=== PATIENT | female | born 1990 | race Caucasian/White ===

== ENCOUNTER 2017-04-16 13:58 | Emergency (ER) | payer BC, MEDICAID ==
[2017-04-16] MEDS ORDERED: Sodium Chloride 0.9% 10 ML Syringe FLUSH PRN (15:06)
[2017-04-16] MEDS ORDERED: Sodium Chloride 0.9% 1,000 ML IV ONE ×2 (15:06→16:07)
[2017-04-16] MEDS ORDERED: Ondansetron 4 MG/2 ML SDV IVPUSH ONE (15:27)
[2017-04-16] MEDS ORDERED: Morphine 4 MG/ML Syringe IVPUSH ONE (15:27)
[2017-04-16 15:37] LABS: CHLORIDE,CL 101 mmol/L (98-107); SODIUM,NA 137 mmol/L (136-145)
[2017-04-16] MEDS ORDERED: cefTRIAXone 1 GM in Sodium Chloride 0.9% 100 ML IV ONE (15:47)
--- NOTE | 2017-04-16 16:27 | EDM.PDOC ---
ED HPI GENERAL MEDICAL PROBLEM - General Chief Complaint: General Stated Complaint: sinus pressure, headache Time Seen by Provider: 04/16/17 14:11 Source of Information: Reports: Patient History Limitations: Reports: No Limitations - History of Present Illness INITIAL COMMENTS - FREE TEXT/NARRATIVE: Patient complains of sore throat and congestion that started this past week. Was seen at clinic and it was thought to be a viral infection. No intervention at that time. Patient continues to have sore throat, but now her worst complaint is sinus congestion. Sinus pain is left sided. Has some clear to light green/yellow drainage. Low grade temp since Tuesday when symptoms started. Has had some nausea, light amount of emesis. Some loose stools but no major diarrhea. Has non-productive cough at times, not significant. 16 weeks . Has tried Tylenol, Benadryl, and hot packs without relief. BP elevated. Patient uncomfortable. Denies history of pre-eclampsia Treatments JUMBO OPERATOR: Reports: Acetaminophen, Other (see below) Other Treatments JUMBO OPERATOR: benadryl and heat therapy Sinus Pain Pain Score (Numeric/FACES): 10 - Related Data Allergies Allergy/AdvReac Type Severity Reaction Status Date / Time nickel Allergy Rash Verified 04/16/17 14:01 Penicillins Allergy Hives Verified 03/03/16 18:42 Home Meds: Home Meds Acetaminophen 1,000 mg PO Q4H PRN 01/18/16 [History] Aspirin [Kelly Chewable Aspirin] 81 mg PO BEDTIME 04/16/17 [History] Cephalexin [Keflex] 500 mg PO Q12H #8 cap 04/16/17 [Rx] Ferrous Sulfate, Dried [Slow Release Iron] 168 mg PO DAILY #30 tablet.er [Rx] Pnv with Ca,No.72/Iron/Fa [Pnv Plus Multivit Tab] 1 tab PO DAILY [History] diphenhydrAMINE [Benadryl] 25 mg PO Q6HR 04/16/17 [History] Past Medical History Other HEENT History: seasonal allergies. Hx. of recurrent tonsilitis as a child Respiratory History: Reports: Sleep Apnea Other Respiratory History: Has a CPAP machine for home use. 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 Misscarriages x 2. There first miscarriage due to tear in wall of placenta. Second miscarriage unknown cause found. 4 live births with one of those being adopted out. Dlivered 1 of the 4 live births by . Other Musculoskeletal History: bilateral ankle sprains Psychiatric History: Reports: Anxiety, Depression Endocrine/Metabolic History: Reports: Obesity/BMI 30+ Hematologic History: Reports: Anemia, Iron Deficiency Other Hematologic History: During pt. has hx of developing frequent clots which has lead to miscarriages - Infectious Disease History Infectious Disease History: Reports: Chicken Pox, Mononucleosis - Past Surgical History HEENT Surgical History: Reports: Oral Surgery Female Surgical History: Reports: Section, D&C Social & Family History - Tobacco Use Smoking Status *Q: Former Smoker Years of Tobacco use: 4 Packs/Tins Daily: 0.2 Used Tobacco, but Quit: Yes Month Tobacco Last Used: quit 2012 Second Hand Smoke Exposure: Yes - Caffeine Use Caffeine Use: Reports: Soda Caffeine Use Comment: Patient usually has 1 Mt. dew per week - Recreational Drug Use Recreational Drug Use: No ED ROS GENERAL - Review of Systems Review Of Systems: See Below Constitutional: Reports: Fever, Chills, Malaise, Weakness, Fatigue, Decreased Appetite. Denies: Night Sweats, Diaphoresis, Weight Loss, Weight Gain HEENT: Reports: Sinus Problem, Throat Pain. Denies: Ear Discharge, Ear Pain, Eye Discharge, Eye Pain, Throat Swelling, Vertigo, Vision Change Respiratory: Reports: Cough. Denies: Shortness of Breath, Wheezing, Pleuritic Chest Pain, Sputum, Hemoptysis Cardiovascular: Reports: No Symptoms GI/Abdominal: Reports: Diarrhea, Difficulty Swallowing, Nausea, Vomiting. Denies: Abdominal Pain, Constipation, Decreased Appetite, Hematemesis, Hematochezia : Reports: No Symptoms Musculoskeletal: Reports: Other (generalized muscle aches) Skin: Reports: No Symptoms Neurological: Reports: No Symptoms Psychiatric: Reports: No Symptoms Hematologic/Lymphatic: Reports: No Symptoms ED EXAM, GENERAL - Physical Exam Exam: See Below Exam Limited By: No Limitations General Appearance: Alert, Obese, Other (appears tired) Eye Exam: Bilateral Eye: EOMI, PERRL Ears: Normal External Exam, Normal Canal, Hearing Grossly Normal, Normal TMs Nose: Normal Inspection, Other (thinner mucus noted when patient blew nose, light greenish tint) Throat/Mouth: Normal Lips, Normal Voice, No Airway Compromise, Other (mild erythema oropharynx, no exudate) Head: Atraumatic, Normocephalic, Sinus Tenderness Neck: Supple, Full Range of Motion, Lymphadenopathy (L), Lymphadenopathy (R) Respiratory/Chest: No Respiratory Distress, Lungs Clear, Normal Breath Sounds, No Accessory Muscle Use Cardiovascular: No Murmur, Tachycardia Peripheral Pulses: 2+: Radial (L), Radial (R), Dorsalis Pedis (L), Dorsalis Pedis (R) GI/Abdominal: Normal Bowel Sounds, Soft, Non-Tender, No Distention (Female) Exam: Deferred Rectal (Female) Exam: Deferred Back Exam: Normal Inspection. No: CVA Tenderness (L), CVA Tenderness (R), Muscle Spasm, Paraspinal Tenderness, Vertebral Tenderness Extremities: Normal Range of Motion, Non-Tender, No Pedal Edema, Slow Capillary Refill (3-4 seconds) Neurological: Alert, Oriented, Normal Cognition, No Motor/Sensory Deficits Psychiatric: Normal Affect, Normal Mood Skin Exam: Warm, Dry, Intact, Normal Color Course - Vital Signs Last Recorded V/S: Last Vital Signs Temp 37.4 C 04/16/17 16:11 Pulse 109 H 04/16/17 16:11 Resp 20 04/16/17 16:11 BP 151/87 H 04/16/17 16:11 Pulse Ox 100 04/16/17 16:11 - Orders/Labs/Meds Orders: Active Orders 24 hr Category Date Time Status Sodium Chloride 0.9% [Saline Flush] Med 04/16/17 15:06 Active 10 ml FLUSH ASDIRECTED PRN Saline Lock Insert [OM.PC] Routine Oth 04/16/17 15:06 Ordered Medication Orders Sodium Chloride (Saline Flush) 10 ml FLUSH ASDIRECTED PRN PRN Reason: Keep Vein Open Last Admin: 04/16/17 16:03 Dose: 10 ml Labs: Laboratory Tests 04/16/17 04/16/17 04/16/17 Range/Units 15:06 15:15 15:15 WBC 9.6 (4.0-10.2) K/uL RBC 4.72 (3.77-5.09) M/uL Hgb 11.7 (11.7-15.5) g/dL Hct 35.8 (34.0-46.0) % MCV 75.8 L D (84.0-98.0) fL MCH 24.8 L (28.2-33.3) pg MCHC 32.7 (31.7-36.0) g/dL RDW 19.3 H (11.2-14.1) % Plt Count 225 (150-350) K/uL Neut % (Auto) 84.3 H (45.0-80.0) % Lymph % (Auto) 9.5 L (10.0-50.0) % [place] % (Auto) 5.9 (2.0-14.0) % Eos % (Auto) 0.2 (0.0-5.0) % Baso % (Auto) 0.1 (0.0-2.0) % Neut # (Auto) 8.09 H (1.40-7.00) K/uL Lymph # (Auto) 0.91 (0.50-3.50) K/uL [place] # (Auto) 0.57 (0.00-1.00) K/uL Eos # (Auto) 0.02 (0.00-0.50) K/uL Baso # (Auto) 0.01 (0.00-0.20) K/uL Sodium 137 (136-145) mmol/L Potassium 4.0 (3.5-5.1) mmol/L Chloride 101 (98-107) mmol/L Carbon Dioxide 22.4 (21.0-32.0) mmol/L BUN 12 (7-18) mg/dL Creatinine 0.56 (0.51-1.17) mg/dL Est Cr Clr Drug Dosing 170.15 mL/min Estimated GFR (MDRD) > 60 mL/min Glucose 87 (74-106) mg/dL Calcium 9.1 (8.5-10.1) mg/dL Iron 19 L (50-175) ug/dL TIBC 380 (250-450) ug/dL % Saturation [id number] Ferritin 58 (8-388) ng/mL Total Bilirubin 0.5 (0.2-1.0) mg/dL AST 15 (15-37) U/L ALT 33 (12-78) U/L Alkaline Phosphatase 79 (46-116) IU/L Total Protein 7.9 (6.4-8.2) g/dL Albumin 3.0 L (3.4-5.0) g/dL Specimen Type Urine Color Urine Appearance Urine pH (5.0-9.0) Ur Specific [place] (1.005-1.030) Urine Protein (NEGATIVE) mg/dL Urine Glucose (UA) (NEGATIVE) mg/dL Urine Ketones (NEGATIVE) mg/dL Urine Occult Blood (NEGATIVE) Urine Nitrite (NEGATIVE) Urine Bilirubin (NEGATIVE) Urine Urobilinogen (0.2-1.0) E.U./dL Ur Leukocyte Esterase (NEGATIVE) Urine RBC /HPF Urine WBC /HPF Ur Epithelial Cells /LPF Urine Bacteria (NONE TO FEW) /HPF 04/16/17 Range/Units 16:00 WBC (4.0-10.2) K/uL RBC (3.77-5.09) M/uL Hgb (11.7-15.5) g/dL Hct (34.0-46.0) % MCV (84.0-98.0) fL MCH (28.2-33.3) pg MCHC (31.7-36.0) g/dL RDW (11.2-14.1) % Plt Count (150-350) K/uL Neut % (Auto) (45.0-80.0) % Lymph % (Auto) (10.0-50.0) % [place] % (Auto) (2.0-14.0) % Eos % (Auto) (0.0-5.0) % Baso % (Auto) (0.0-2.0) % Neut # (Auto) (1.40-7.00) K/uL Lymph # (Auto) (0.50-3.50) K/uL [place] # (Auto) (0.00-1.00) K/uL Eos # (Auto) (0.00-0.50) K/uL Baso # (Auto) (0.00-0.20) K/uL Sodium (136-145) mmol/L Potassium (3.5-5.1) mmol/L Chloride (98-107) mmol/L Carbon Dioxide (21.0-32.0) mmol/L BUN (7-18) mg/dL Creatinine (0.51-1.17) mg/dL Est Cr Clr Drug Dosing mL/min Estimated GFR (MDRD) mL/min Glucose (74-106) mg/dL Calcium (8.5-10.1) mg/dL Iron (50-175) ug/dL TIBC (250-450) ug/dL % Saturation Ferritin (8-388) ng/mL Total Bilirubin (0.2-1.0) mg/dL AST (15-37) U/L ALT (12-78) U/L Alkaline Phosphatase (46-116) IU/L Total Protein (6.4-8.2) g/dL Albumin (3.4-5.0) g/dL Specimen Type Urinblad Urine Color Yellow Urine Appearance Clear Urine pH 6.0 (5.0-9.0) Ur Specific [place] 1.025 (1.005-1.030) Urine Protein 100 H (NEGATIVE) mg/dL Urine Glucose (UA) Negative (NEGATIVE) mg/dL Urine Ketones >=160 H (NEGATIVE) mg/dL Urine Occult Blood Trace-intact H (NEGATIVE) Urine Nitrite Negative (NEGATIVE) Urine Bilirubin Negative (NEGATIVE) Urine Urobilinogen 0.2 (0.2-1.0) E.U./dL Ur Leukocyte Esterase Negative (NEGATIVE) Urine RBC 0-5 /HPF Urine WBC 0-5 /HPF Ur Epithelial Cells Few /LPF Urine Bacteria Few (NONE TO FEW) /HPF Meds: Medications Generic Name Dose Route Start Last Admin Trade Name Freq PRN Reason Stop Dose Admin Sodium Chloride 10 ml 04/16/17 15:06 04/16/17 16:03 Saline Flush FLUSH 10 ml ASDIRECTED PRN Administration Keep Vein Open Discontinued Medications Generic Name Dose Route Start Last Admin Trade Name Freq PRN Reason Stop Dose Admin Hydrocodone Bitart/Acetaminophen 1 tab 04/16/17 17:11 04/16/17 17:14 Pana 325-5 Mg PO 04/16/17 17:12 1 tab ONETIME ONE Administration Sodium Chloride 1,000 mls @ 999 mls/hr 04/16/17 15:06 04/16/17 15:17 Normal Saline IV 04/16/17 16:06 999 mls/hr .BOLUS ONE Administration Sodium Chloride 1,000 mls @ 999 mls/hr 12/16/17 16:07 04/16/17 17:07 Normal Saline IV 04/16/17 17:07 999 mls/hr .BOLUS ONE Administration Ceftriaxone Sodium 1 gm/ 100 mls @ 200 mls/hr 04/16/17 15:47 04/16/17 16:06 Sodium Chloride IV 04/16/17 16:16 200 mls/hr ONETIME ONE Administration Morphine Sulfate 4 mg 04/16/17 15:27 04/16/17 16:04 Morphine IVPUSH 04/16/17 15:28 4 mg ONETIME ONE Administration Ondansetron HCl 4 mg 04/16/17 15:27 04/16/17 15:59 Zofran IVPUSH 04/16/17 15:28 4 mg ONETIME ONE Administration - Re-Assessments/Exams Free Text/Narrative Re-Assessment/Exam: 04/16/17 16:41 IV fluids given as well as pain medication to help with patient's 10/10 pain. Mild dehydration noted on exam. WBC normal. Microcytosis noted, serum ferritin added to labs. Chem panel WNL. UA still pending. Call placed to telepharmacy to discuss IV antibiotic consideration for patient as she is PCN allergic as well as . They recommended Rocephin if patient has not had problems with cephalosporin cross-reactivity in past. Patient was agreeable with the Rocephin. Planned discharge on Keflex. Free Text/Narrative Re-Assessment/Exam: 04/16/17 18:31 Much improved. Patient readied for discharge. BP and pulse also improved. Departure - Departure Time of Disposition: 18:25 Disposition: Home, Self-Care 01 Condition: Good Clinical Impression: Strep pharyngitis, Dehydration - Discharge Information Prescriptions: Cephalexin [Keflex] 500 mg PO Q12H #8 cap Ferrous Sulfate, Dried [Slow Release Iron] 168 mg PO DAILY #30 tablet.er Instructions: Ondansetron injection, Ceftriaxone injection, Strep Throat, Morphine injection solution, Dehydration, Adult Referrals: Lise Fajardo PA [Primary Care Provider] - Forms: ED Department Discharge, ED Return to Work/School Form Additional Instructions: Home, rest, take medicines as prescribed. Follow up Tuesday at clinic if you need further work restrictions. Stay hydrated. Follow up also concerning your severe iron deficiency. Follow up otherwise as needed. - My Orders Last 24 Hours: My Active Orders 04/16/17 15:06 Sodium Chloride 0.9% [Saline Flush] 10 ml FLUSH ASDIRECTED PRN Saline Lock Insert [OM.PC] Routine - Assessment/Plan Last 24 Hours: My Active Orders 04/16/17 15:06 Sodium Chloride 0.9% [Saline Flush] 10 ml FLUSH ASDIRECTED PRN Saline Lock Insert [OM.PC] Routine
[2017-04-16] MEDS ORDERED: Acetaminophen/HYDROcodone 325-5 MG Tab PO ONE (17:11)
[2017-04-16 18:33] VITALS: BP 144/83
== END 2017-04-16 18:50 | disposition home or self-care (01) ==
LOC: LL.ED 13:58
DX: O99.512 Diseases of the respiratory system complicating pregnancy, second trimester (principal); J02.0 Streptococcal pharyngitis; O99.282 Endocrine, nutritional and metabolic diseases complicating pregnancy, second trimester; E86.0 Dehydration; Z3A.16 16 weeks gestation of pregnancy; Z88.0 Allergy status to penicillin; Z88.8 Allergy status to other drugs, medicaments and biological substances; Z79.82 Long term (current) use of aspirin; Z87.891 Personal history of nicotine dependence
CPT/HCPCS: 36415; 80053; 81001; 82728; 83540; 83550; 85025; 87430; 87804; 96361; 96365; 96375; 99284; A9270; J0696; J2270; J2405; J7030; J7050

== ENCOUNTER 2018-08-11 06:49 | Emergency (ER) | payer BC ==
[2018-08-11] MEDS ORDERED: Sodium Chloride 0.9% 10 ML Syringe FLUSH PRN (07:08)
[2018-08-11] MEDS ORDERED: Lactated Ringers 1,000 ML IV SCH (07:15)
[2018-08-11] MEDS: Sodium Chloride 0.9% 1,000 ML IV SCH (07:26)
--- NOTE | 2018-08-11 07:50 | EDM.PDOC ---
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 No chest pain No travel hx Rare cough Onset: Today, Gradual Duration: Hour(s):, Getting Worse Location: Reports: Generalized Quality: Reports: Ache Severity: Moderate Improves with: Reports: Medication Associated Symptoms: Reports: Fever/Chills, Nausea/Vomiting Treatments SHOT POLISHER: Reports: Acetaminophen - Related Data Allergies Allergy/AdvReac Type Severity Reaction Status Date / Time nickel Allergy Rash Verified 08/11/18 07:05 Penicillins Allergy Hives Verified 08/11/18 07:05 Home Meds: Home Meds Acetaminophen 1,000 mg PO Q4H PRN 01/18/16 [History] Acetaminophen/Diphenhydramine [Tylenol Pm Ex-Strength Caplet] 2 each PO BEDTIME 08/11/18 [History] Cholecalciferol (Vitamin D3) [Vitamin D3] 2,000 units PO DAILY 08/11/18 [History ] Folic Acid 1 mg PO BEDTIME 08/11/18 [History] Methotrexate 8 tab PO TU 08/11/18 [History] Metoprolol Succinate [Toprol XL] 25 mg PO BEDTIME 08/11/18 [History] Sertraline [Zoloft] 100 mg PO BEDTIME 08/11/18 [History] hydroCHLOROthiazide [Hydrochlorothiazide] 25 mg PO BEDTIME 08/11/18 [History] Past Medical History Other HEENT History: seasonal allergies. Hx. of recurrent tonsilitis as a child Respiratory History: Reports: Sleep Apnea Other Respiratory History: Has a CPAP machine for home use. 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 Misscarriages x 2. There first miscarriage due to tear in wall of placenta. Second miscarriage unknown cause found. 4 live births with one of those being adopted out. Dlivered 1 of the 4 live births by . Musculoskeletal History: Reports: RA Other Musculoskeletal History: bilateral ankle sprains Psychiatric History: Reports: Anxiety, Depression Endocrine/Metabolic History: Reports: Obesity/BMI 30+ Hematologic History: Reports: Anemia, Iron Deficiency Other Hematologic History: During pt. has hx of developing frequent clots which has lead to miscarriages - Infectious Disease History Infectious Disease History: Reports: Chicken Pox, Mononucleosis - Past Surgical History HEENT Surgical History: Reports: Oral Surgery Female Surgical History: Reports: Section, D&C Social & Family History - Tobacco Use Smoking Status *Q: Former Smoker Used Tobacco, but Quit: Yes Month/Year Tobacco Last Used: quit in 2014 - Caffeine Use Caffeine Use: Reports: Coffee, Soda Caffeine Use Comment: Patient usually has 1 Mt. dew per week - Recreational Drug Use Recreational Drug Use: No ED ROS GENERAL - Review of Systems Review Of Systems: See Below Constitutional: Reports: Fever, Chills Respiratory: Reports: No Symptoms Cardiovascular: Reports: No Symptoms GI/Abdominal: Reports: Diarrhea, Nausea, Vomiting : Reports: No Symptoms ED EXAM, GENERAL - Physical Exam Exam: See Below General Appearance: Mild Distress Throat/Mouth: Normal Oropharynx Neck: Supple Respiratory/Chest: Lungs Clear Cardiovascular: Regular Rate, Rhythm GI/Abdominal: Soft, Non-Tender Course - Vital Signs Last Recorded V/S: Last Vital Signs Temp 37.3 C 08/11/18 06:51 Pulse 110 H 08/11/18 06:51 Resp 18 08/11/18 06:51 BP 129/91 H 08/11/18 06:51 Pulse Ox 98 08/11/18 06:51 - Orders/Labs/Meds Orders: Active Orders 24 hr Category Date Time Status CMP [COMPREHENSIVE METABOLIC PN,CMP] [CHEM] Stat Lab 08/11/18 07:20 Received Ondansetron [Zofran] Med 08/11/18 07:46 Once 8 mg IVPUSH ONETIME ONE Sodium Chloride 0.9% [Normal Saline] 1,000 ml Med 08/11/18 07:15 Active IV ASDIRECTED Sodium Chloride 0.9% [Saline Flush] Med 08/11/18 07:08 Active 10 ml FLUSH ASDIRECTED PRN Saline Lock Insert [OM.PC] Routine Oth 08/11/18 07:08 Ordered Medication Orders Sodium Chloride (Normal Saline) 1,000 mls @ 999 mls/hr IV ASDIRECTED HAO Last Admin: 08/11/18 07:26 Dose: 999 mls/hr Sodium Chloride (Saline Flush) 10 ml FLUSH ASDIRECTED PRN PRN Reason: Keep Vein Open Labs: Laboratory Tests 08/11/18 08/11/18 Range/Units 07:20 07:20 WBC 13.5 H (4.0-10.2) K/uL RBC 5.06 (3.77-5.09) M/uL Hgb 14.2 D (11.7-15.5) g/dL Hct 40.9 (34.0-46.0) % MCV 80.8 L D (84.0-98.0) fL MCH 28.1 L (28.2-33.3) pg MCHC 34.7 (31.7-36.0) g/dL RDW 14.6 H (11.2-14.1) % Plt Count 230 (150-350) K/uL Neut % (Auto) 83.3 H (45.0-80.0) % Lymph % (Auto) 10.0 (10.0-50.0) % [place] % (Auto) 6.3 (2.0-14.0) % Eos % (Auto) 0.3 (0.0-5.0) % Baso % (Auto) 0.1 (0.0-2.0) % Neut # (Auto) 11.27 H (1.40-7.00) K/uL Lymph # (Auto) 1.36 (0.50-3.50) K/uL [place] # (Auto) 0.85 (0.00-1.00) K/uL Eos # (Auto) 0.04 (0.00-0.50) K/uL Baso # (Auto) 0.02 (0.00-0.20) K/uL Lactic Acid 1.1 (0.4-2.0) mmol/L Meds: Medications Generic Name Dose Route Start Last Admin Trade Name Freq PRN Reason Stop Dose Admin Sodium Chloride 1,000 mls @ 999 mls/hr 08/11/18 07:15 08/11/18 07:26 Normal Saline IV 999 mls/hr ASDIRECTED HAO Administration Sodium Chloride 10 ml 08/11/18 07:08 Saline Flush FLUSH ASDIRECTED PRN Keep Vein Open - Re-Assessments/Exams Free Text/Narrative Re-Assessment/Exam: 08/11/18 07:48 Pt given IVF, IV Zofran in ER Had taken Tylenol at home and temp now 99 Departure - Departure Time of Disposition: 09:00 Disposition: Home, Self-Care 01 Clinical Impression: Gastroenteritis - Discharge Information *PRESCRIPTION DRUG MONITORING PROGRAM REVIEWED*: Not Applicable *COPY OF PRESCRIPTION DRUG MONITORING REPORT IN PATIENT HERI: Not Applicable Instructions: Viral Gastroenteritis, Adult Referrals: Zahra Kern PA-C [Primary Care Provider] - - My Orders Last 24 Hours: My Active Orders 08/11/18 07:08 Sodium Chloride 0.9% [Saline Flush] 10 ml FLUSH ASDIRECTED PRN Saline Lock Insert [OM.PC] Routine 08/11/18 07:15 Sodium Chloride 0.9% [Normal Saline] 1,000 ml IV ASDIRECTED 08/11/18 07:20 CMP [COMPREHENSIVE METABOLIC PN,CMP] [CHEM] Stat 08/11/18 07:46 Ondansetron [Zofran] 8 mg IVPUSH ONETIME ONE - Assessment/Plan Last 24 Hours: My Active Orders 08/11/18 07:08 Sodium Chloride 0.9% [Saline Flush] 10 ml FLUSH ASDIRECTED PRN Saline Lock Insert [OM.PC] Routine 08/11/18 07:15 Sodium Chloride 0.9% [Normal Saline] 1,000 ml IV ASDIRECTED 08/11/18 07:20 CMP [COMPREHENSIVE METABOLIC PN,CMP] [CHEM] Stat 08/11/18 07:46 Ondansetron [Zofran] 8 mg IVPUSH ONETIME ONE
[2018-08-11 07:52] LABS: CHLORIDE,CL 104 mmol/L (98-107); SODIUM,NA 139 mmol/L (136-145)
[2018-08-11 08:17] VITALS: BP 102/81
[2018-08-11] MEDS: Ondansetron 4 MG/2 ML SDV IVPUSH ONE (08:21)
== END 2018-08-11 08:30 | disposition home or self-care (01) ==
LOC: LL.ED 06:49
DX: K52.9 Noninfective gastroenteritis and colitis, unspecified (principal); Z88.8 Allergy status to other drugs, medicaments and biological substances; Z88.0 Allergy status to penicillin; Z79.899 Other long term (current) drug therapy; Z87.891 Personal history of nicotine dependence
CPT/HCPCS: 36000; 36415; 80053; 83605; 85025; 87804; 96361; 96374; 99284; J2405; J7030

== ENCOUNTER 2018-08-13 14:45 | Emergency (ER) | payer BC ==
[2018-08-13] MEDS ORDERED: Sodium Chloride 0.9% 10 ML Syringe FLUSH PRN (14:58)
[2018-08-13 15:24] VITALS: BP 113/77
[2018-08-13] MEDS ORDERED: Azithromycin 250 MG Tab PO ONE (15:26)
[2018-08-13] MEDS ORDERED: Ketorolac 30 MG/ML SDV IVPUSH ONE (15:27)
[2018-08-13] MEDS ORDERED: Ondansetron 4 MG/2 ML SDV IVPUSH ONE (15:27)
[2018-08-13] MEDS ORDERED: Sodium Chloride 0.9% 1,000 ML IV ONE (15:27)
[2018-08-13 15:37] LABS: CHLORIDE,CL 101 mmol/L (98-107); SODIUM,NA 140 mmol/L (136-145)
--- NOTE | 2018-08-13 16:02 | EDM.PDOC ---
ED HPI GENERAL MEDICAL PROBLEM - General Chief Complaint: ENT Problem Stated Complaint: sore throat Time Seen by Provider: 08/13/18 14:58 Source of Information: Reports: Patient History Limitations: Reports: No Limitations - History of Present Illness INITIAL COMMENTS - FREE TEXT/NARRATIVE: Three day history of not feeling well. Symptoms initially included nausea/ emesis/loose stools. Was seen in the ER for this Tuesday, two days ago. Received IV fluids. Returns today because she has a sore throat and spit out "tonsil stones". Vomiting and loose stools have resolved. Low grade fever yesterday, but afebrile today. Continues to have generalized body aches. Has intermittent ear pain bilaterally. No headache complaint. No other changes reported. Would like work note. Throat Pain Score (Numeric/FACES): 8 - Related Data Allergies Allergy/AdvReac Type Severity Reaction Status Date / Time nickel Allergy Rash Verified 08/13/18 15:23 Penicillins Allergy Hives Verified 08/13/18 15:23 Home Meds: Home Meds Acetaminophen 1,000 mg PO Q4H PRN 01/18/16 [History] Acetaminophen/Diphenhydramine [Tylenol Pm Ex-Strength Caplet] 2 each PO BEDTIME 08/11/18 [History] Cholecalciferol (Vitamin D3) [Vitamin D3] 2,000 units PO DAILY 08/11/18 [History ] Folic Acid 1 mg PO BEDTIME 08/11/18 [History] Methotrexate 8 tab PO TU 08/11/18 [History] Metoprolol Succinate [Toprol XL] 25 mg PO BEDTIME 08/11/18 [History] Sertraline [Zoloft] 100 mg PO BEDTIME 08/11/18 [History] hydroCHLOROthiazide [Hydrochlorothiazide] 25 mg PO BEDTIME 08/11/18 [History] Azithromycin [Zithromax] 250 mg PO DAILY #4 tab 08/13/18 [Rx] guaiFENesin [Robitussin] 10 ml PO Q4H PRN 08/13/18 [History] Past Medical History Other HEENT History: seasonal allergies. Hx. of recurrent tonsilitis as a child Cardiovascular History: Reports: Hypertension Respiratory History: Reports: Sleep Apnea Other Respiratory History: Has a CPAP machine for home use. Patient uses machine daily except for when sick SPECIALTY DEVELOPMENT CONSULTANT History: Reports: , Spontaneous Other SPECIALTY DEVELOPMENT CONSULTANT History: Total number of pregnacy is 7 with Miscarriages x 2. There first miscarriage due to tear in wall of placenta. Second miscarriage unknown cause found. 4 live births with one of those being adopted out. C- section. Musculoskeletal History: Reports: RA Other Musculoskeletal History: bilateral ankle sprains Psychiatric History: Reports: Anxiety, Depression Endocrine/Metabolic History: Reports: Obesity/BMI 30+ Hematologic History: Reports: Anemia, Iron Deficiency Other Hematologic History: During pt. has hx of developing frequent clots which has lead to miscarriages Immunologic History: Reports: Other (See Below) (rheumatoid arthritis) - Infectious Disease History Infectious Disease History: Reports: Chicken Pox, Mononucleosis - Past Surgical History HEENT Surgical History: Reports: Oral Surgery Female Surgical History: Reports: Section, D&C Social & Family History - Caffeine Use Caffeine Use: Reports: Coffee, Soda Caffeine Use Comment: Patient usually has 1 Mt. dew per week ED ROS GENERAL - Review of Systems Review Of Systems: See Below Constitutional: Denies: Fever, Chills, Malaise, Weakness, Night Sweats, Diaphoresis HEENT: Reports: Ear Pain, Throat Pain. Denies: Dental Pain, Ear Discharge, Eye Discharge, Eye Pain, Rhinitis, Sinus Problem, Throat Swelling, Vertigo, Vision Change Respiratory: Reports: No Symptoms. Denies: Cough Cardiovascular: Reports: No Symptoms. Denies: Chest Pain GI/Abdominal: Reports: No Symptoms. Denies: Abdominal Pain, Constipation, Diarrhea, Melena, Nausea, Vomiting : Reports: No Symptoms Musculoskeletal: Reports: Other (generalized body aches) Skin: Reports: No Symptoms Neurological: Reports: No Symptoms Psychiatric: Reports: No Symptoms ED EXAM, GENERAL - Physical Exam Exam: See Below Exam Limited By: No Limitations General Appearance: Alert, No Apparent Distress, Obese Eye Exam: Bilateral Eye: EOMI, PERRL Ear Exam: Right Ear: TM normal, Left Ear: Auricle Normal, Canal Normal, Other ( yellowish fluid noted behind TM) Nose: No: Nasal Deformity, Nasal Swelling, Nasal Drainage Throat/Mouth: Normal Lips, No Airway Compromise, Other (Due to patient's anatomy , very difficult to fully assess OP even with tongue depressor. No obvious redness noted. ) Head: Atraumatic, Normocephalic Neck: Supple, Full Range of Motion, Lymphadenopathy (L), Lymphadenopathy (R) Respiratory/Chest: No Respiratory Distress, Lungs Clear, Normal Breath Sounds, No Accessory Muscle Use Cardiovascular: No Murmur, Tachycardia Peripheral Pulses: 2+: Brachial (L), Brachial (R) GI/Abdominal: Soft, Non-Tender (Female) Exam: Deferred Rectal (Female) Exam: Deferred Neurological: Alert, Oriented, CN II-XII Intact, Normal Cognition, Normal Gait, No Motor/Sensory Deficits Psychiatric: Normal Affect, Normal Mood Skin Exam: Warm, Dry, Intact, Normal Color Course - Vital Signs Last Recorded V/S: Last Vital Signs Temp 36.5 C 08/13/18 14:45 Pulse 106 H 08/13/18 15:00 Resp 20 08/13/18 15:00 BP 113/77 08/13/18 15:00 Pulse Ox 97 08/13/18 15:00 - Orders/Labs/Meds Orders: Active Orders 24 hr Category Date Time Status CULTURE STREP A CONFIRMATION [RM] Stat Lab 08/13/18 15:10 Results CULTURE URINE [] Routine Lab 08/13/18 15:52 Ordered HEPATITIS PANEL (4) [REF] Routine Lab 08/13/18 15:54 Ordered STREP SCRN A RAPID W CULT CONF [RM] Stat Lab 08/13/18 14:58 Ordered Sodium Chloride 0.9% [Saline Flush] Med 08/13/18 14:58 Active 10 ml FLUSH ASDIRECTED PRN Saline Lock Insert [OM.PC] Routine Oth 08/13/18 14:58 Ordered Medication Orders Sodium Chloride (Saline Flush) 10 ml FLUSH ASDIRECTED PRN PRN Reason: Keep Vein Open Last Admin: 08/13/18 15:49 Dose: 10 ml Labs: Laboratory Tests 08/13/18 08/13/18 08/13/18 Range/Units 14:58 15:15 15:15 WBC 12.7 H (4.0-10.2) K/uL RBC 5.10 H (3.77-5.09) M/uL Hgb 14.2 (11.7-15.5) g/dL Hct 41.9 (34.0-46.0) % MCV 82.2 L (84.0-98.0) fL MCH 27.8 L (28.2-33.3) pg MCHC 33.9 (31.7-36.0) g/dL RDW 14.7 H (11.2-14.1) % Plt Count 275 (150-350) K/uL Neut % (Auto) 75.1 (45.0-80.0) % Lymph % (Auto) 15.5 (10.0-50.0) % Hartley % (Auto) 8.7 (2.0-14.0) % Eos % (Auto) 0.5 (0.0-5.0) % Baso % (Auto) 0.2 (0.0-2.0) % Neut # (Auto) 9.52 H (1.40-7.00) K/uL Lymph # (Auto) 1.96 (0.50-3.50) K/uL Hartley # (Auto) 1.10 H (0.00-1.00) K/uL Eos # (Auto) 0.06 (0.00-0.50) K/uL Baso # (Auto) 0.02 (0.00-0.20) K/uL Sodium 140 (136-145) mmol/L Potassium 3.9 (3.5-5.1) mmol/L Chloride 101 (98-107) mmol/L Carbon Dioxide 27.6 (21.0-32.0) mmol/L BUN 15 (7-18) mg/dL Creatinine 0.68 (0.51-1.17) mg/dL Est Cr Clr Drug Dosing 137.67 mL/min Estimated GFR (MDRD) > 60 mL/min Glucose 85 (74-106) mg/dL Lactic Acid (0.4-2.0) mmol/L Calcium 9.6 (8.5-10.1) mg/dL Total Bilirubin 1.4 H (0.2-1.0) mg/dL AST 49 H (15-37) U/L ALT 90 H (12-78) U/L Alkaline Phosphatase 120 H (46-116) IU/L Total Protein 8.4 H (6.4-8.2) g/dL Albumin 3.8 (3.4-5.0) g/dL Specimen Type Urinblad Urine Color Yellow Urine Appearance Clear Urine pH 6.5 (5.0-9.0) Ur Specific Douglas 1.020 (1.005-1.030) Urine Protein 100 H (NEGATIVE) mg/dL Urine Glucose (UA) Negative (NEGATIVE) mg/dL Urine Ketones 15 H (NEGATIVE) mg/dL Urine Occult Blood Trace-lysed H (NEGATIVE) Urine Nitrite Negative (NEGATIVE) Urine Bilirubin Small H (NEGATIVE) Urine Urobilinogen 1.0 (0.2-1.0) E.U./dL Ur Leukocyte Esterase Small H (NEGATIVE) Urine RBC 5-10 H /HPF Urine WBC 10-20 H /HPF Ur Epithelial Cells Many H /LPF Urine Bacteria Many H (NONE TO FEW) /HPF Urine Yeast Moderate H (NEGATIVE) /HPF Urinalysis Comment Monoscreen (NEGATIVE) 08/13/18 08/13/18 Range/Units 15:15 15:15 WBC (4.0-10.2) K/uL RBC (3.77-5.09) M/uL Hgb (11.7-15.5) g/dL Hct (34.0-46.0) % MCV (84.0-98.0) fL MCH (28.2-33.3) pg MCHC (31.7-36.0) g/dL RDW (11.2-14.1) % Plt Count (150-350) K/uL Neut % (Auto) (45.0-80.0) % Lymph % (Auto) (10.0-50.0) % Hartley % (Auto) (2.0-14.0) % Eos % (Auto) (0.0-5.0) % Baso % (Auto) (0.0-2.0) % Neut # (Auto) (1.40-7.00) K/uL Lymph # (Auto) (0.50-3.50) K/uL Hartley # (Auto) (0.00-1.00) K/uL Eos # (Auto) (0.00-0.50) K/uL Baso # (Auto) (0.00-0.20) K/uL Sodium (136-145) mmol/L Potassium (3.5-5.1) mmol/L Chloride (98-107) mmol/L Carbon Dioxide (21.0-32.0) mmol/L BUN (7-18) mg/dL Creatinine (0.51-1.17) mg/dL Est Cr Clr Drug Dosing mL/min Estimated GFR (MDRD) mL/min Glucose (74-106) mg/dL Lactic Acid 0.5 (0.4-2.0) mmol/L Calcium (8.5-10.1) mg/dL Total Bilirubin (0.2-1.0) mg/dL AST (15-37) U/L ALT (12-78) U/L Alkaline Phosphatase (46-116) IU/L Total Protein (6.4-8.2) g/dL Albumin (3.4-5.0) g/dL Specimen Type Urine Color Urine Appearance Urine pH (5.0-9.0) Ur Specific Douglas (1.005-1.030) Urine Protein (NEGATIVE) mg/dL Urine Glucose (UA) (NEGATIVE) mg/dL Urine Ketones (NEGATIVE) mg/dL Urine Occult Blood (NEGATIVE) Urine Nitrite (NEGATIVE) Urine Bilirubin (NEGATIVE) Urine Urobilinogen (0.2-1.0) E.U./dL Ur Leukocyte Esterase (NEGATIVE) Urine RBC /HPF Urine WBC /HPF Ur Epithelial Cells /LPF Urine Bacteria (NONE TO FEW) /HPF Urine Yeast (NEGATIVE) /HPF Urinalysis Comment Monoscreen Negative (NEGATIVE) Meds: Medications Generic Name Dose Route Start Last Admin Trade Name Freq PRN Reason Stop Dose Admin Sodium Chloride 10 ml 08/13/18 14:58 08/13/18 15:49 Saline Flush FLUSH 10 ml ASDIRECTED PRN Administration Keep Vein Open Discontinued Medications Generic Name Dose Route Start Last Admin Trade Name Freq PRN Reason Stop Dose Admin Azithromycin 500 mg 08/13/18 15:26 08/13/18 15:49 Zithromax PO 08/13/18 15:27 500 mg ONETIME ONE Administration Sodium Chloride 1,000 mls @ 999 mls/hr 08/13/18 15:27 08/13/18 15:47 Normal Saline IV 08/13/18 16:27 999 mls/hr .BOLUS ONE Administration Ketorolac Tromethamine 30 mg 08/13/18 15:27 08/13/18 15:49 Toradol IVPUSH 08/13/18 15:28 30 mg ONETIME ONE Administration Ondansetron HCl 4 mg 08/13/18 15:27 08/13/18 15:49 Zofran IVPUSH 08/13/18 15:28 4 mg ONETIME ONE Administration - Re-Assessments/Exams Free Text/Narrative Re-Assessment/Exam: 08/13/18 17:00 Rapid strep and mono negative. WBC still elevated but improving. LFTs now elevated (normal two days ago). Patient denies taking excessive amount of Tylenol. No history of previous LFT abnormalities reported. Hepatitis panel requested. UA sample requested and showed a large quantity of epithelial cells with a few WBC/RBC noted. Reflects dirty UA specimen. Lab unable to perform UC due to contamination. Patient unable to give us new UA specimen. Denies UTI symptoms. Received Zithromax for left middle ear infection. Suspect based on patient's history that she has viral infection. Given the yellowish coloration of TM fluid will cover with Zithromax. No additional antibiotics indicated at this time. Patient received single liter of IV NS. Cap refill had been mildly sluggish on exam, mild dehydration suspected. Toradol and Zofran given. Work slip given for 48 hours off. Patient cautioned to avoid ETOH/Tylenol given the elevated LFTs. Precautions reviewed. To follow up in one week with her primary provider to have LFTs rechecked. Hep panel can be reviewed and new UA performed at that time. Strep culture pending. Departure - Departure Time of Disposition: 17:07 Disposition: Home, Self-Care 01 Condition: Good Clinical Impression: Viral syndrome, LFT elevation Otitis media Qualifiers: Otitis media type: suppurative Chronicity: acute Laterality: left Recurrence: not specified as recurrent Spontaneous tympanic membrane rupture: without spontaneous rupture Qualified Code(s): H66.002 - Acute suppurative otitis media without spontaneous rupture of ear drum, left ear - Discharge Information *PRESCRIPTION DRUG MONITORING PROGRAM REVIEWED*: Not Applicable *COPY OF PRESCRIPTION DRUG MONITORING REPORT IN PATIENT HERI: Not Applicable Prescriptions: Azithromycin [Zithromax] 250 mg PO DAILY #4 tab Instructions: Otitis Media, Adult, [id number] Referrals: Zahra Kern PA-C [Primary Care Provider] - Forms: ED Department Discharge, ED Return to Work/School Form Additional Instructions: No work for 48 hours. 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 Make appointment with your primary provider to get your liver functions rechecked in one week. You may review your hepatitis panel results at that time also. Recheck urine at that time. Stay hydrated. Avoid Tylenol for now due to your elevated liver functions. OK to take Ibuprofen. No alcohol either. Follow up as needed if you have worsening problems. - My Orders Last 24 Hours: My Active Orders 08/13/18 14:58 STREP SCRN A RAPID W CULT CONF [RM] Stat Sodium Chloride 0.9% [Saline Flush] 10 ml FLUSH ASDIRECTED PRN Saline Lock Insert [OM.PC] Routine 08/13/18 15:10 CULTURE STREP A CONFIRMATION [RM] Stat 08/13/18 15:52 CULTURE URINE [RM] Routine 08/13/18 15:54 HEPATITIS PANEL (4) [REF] Routine - Assessment/Plan Last 24 Hours: My Active Orders 08/13/18 14:58 STREP SCRN A RAPID W CULT CONF [RM] Stat Sodium Chloride 0.9% [Saline Flush] 10 ml FLUSH ASDIRECTED PRN Saline Lock Insert [OM.PC] Routine 08/13/18 15:10 CULTURE STREP A CONFIRMATION [RM] Stat 08/13/18 15:52 CULTURE URINE [RM] Routine 08/13/18 15:54 HEPATITIS PANEL (4) [REF] Routine
== END 2018-08-13 17:15 | disposition home or self-care (01) ==
LOC: LL.ED 14:45
DX: H66.002 Acute suppurative otitis media without spontaneous rupture of ear drum, left ear (principal); B34.9 Viral infection, unspecified; R79.89 Other specified abnormal findings of blood chemistry; I10 Essential (primary) hypertension; F41.9 Anxiety disorder, unspecified; F32.9 Major depressive disorder, single episode, unspecified; Z88.0 Allergy status to penicillin; Z88.8 Allergy status to other drugs, medicaments and biological substances; Z79.899 Other long term (current) drug therapy
CPT/HCPCS: 36415; 80053; 80074; 81001; 83605; 85025; 86308; 87081; 87430; 96361; 96374; 96375; 99283-25; A9270-GY; J1885; J2405; J7030

== ENCOUNTER 2018-08-29 16:22 | Emergency (ER) | payer BC ==
--- NOTE | 2018-08-29 16:37 | EDM.PDOC ---
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 This is not a Workmen's Compensation injury. Note that the patient does have a previous history of recurrent ankle sprains with only minor fall today with a right knee abrasion but no head injury , loss of consciousness, paresthesias, neck/back pain, neurological deficits, or other complaints or injuries. She did take 400 mg of prior to arrival. No recent history of abdominal pain, heartburn, nausea, diarrhea, melena, gross hematochezia, or any food intolerance, including fatty foods, etc.. The patient also denies any recent fever, cough, wheezing, dyspnea, etc.. Onset: Today, Sudden Onset Date: 08/29/18 Onset Time: 15:30 Duration: Constant Location: Reports: Lower Extremity, Left, Lower Extremity, Right. 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 Left Ankle Pain Score (Numeric/FACES): 7 - Related Data Allergies Allergy/AdvReac Type Severity Reaction Status Date / Time nickel Allergy Rash Verified 08/29/18 16:30 Penicillins Allergy Hives Verified 08/29/18 16:30 Home Meds: Home Meds Cholecalciferol (Vitamin D3) [Vitamin D3] 2,000 units PO DAILY 08/11/18 [History ] Folic Acid 1 mg PO BEDTIME 08/11/18 [History] Methotrexate 6 tab PO TU 08/11/18 [History] Metoprolol Succinate [Toprol XL] 25 mg PO BEDTIME 08/11/18 [History] Sertraline [Zoloft] 100 mg PO BEDTIME 08/11/18 [History] hydroCHLOROthiazide [Hydrochlorothiazide] 25 mg PO DAILY #0 08/29/18 [Rx] Past Medical History HEENT History: Reports: Allergic Rhinitis, Impaired Vision. Denies: Glaucoma, Hard of Hearing, Macular Degeneration, Otitis Media, Retinal Detachment Other HEENT History: Sseasonal allergies. Hx. of recurrent tonsilitis as a child. She wears glasses and soft contact lenses. Cardiovascular History: Reports: Hypertension. Denies: Afib, Aneurysm, Arrhythmia, Blood Clots/VTE/DVT, CAD, Heart Failure, Heart Murmur, High Cholesterol, MD, PVD, Syncope Respiratory History: Reports: Intubation, Previous, Sleep Apnea. Denies: Asthma , Bronchitis, Recurrent, COPD, Intubation, Difficult, PE, Pneumonia, Recurrent, Pneumothorax, TB Other Respiratory History: She was compliant with her CPAP machine. Gastrointestinal History: Reports: Other (See Below). Denies: Celiac Disease, Cholelithiasis, Chronic Constipation, Chronic Diarrhea, Fecal Incontinence, Gastritis, GERD, GI Bleed, Hepatitis, Hiatal Hernia, Inflammatory Bowel Disease , Irritable Bowel Syndrome, Jaundice, Pancreatitis, PUD Other Gastrointestinal History: LFT elevation secondary to either fatty liver and/or methotrexate therapy. Genitourinary History: Reports: None. 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 Denies: Dysfunctional Uterine Bleeding, Endometriosis, Fibroids : 7 Para: 5 LMP (Approximate): Other (See Below) Other ENGINE ROOM OPERATOR History: Total number of pregnacy is 7 with Miscarriages x 2. Her first miscarriage due to tear in wall of placenta/placental abruption with SAB at 17 weeks with D&C thereafter after delivery. Second miscarriage unknown cause found 20 weeks with delivery and subsequent D&C. 4 live births with one of those being adopted out. 1 secondary to breech presentation was at full-term with subsequent follow-up scheduled secondary to previous as above. LMP on 08/01/18. Musculoskeletal History: Reports: Arthritis, Fracture, Osteoarthritis, RA. Denies: Amputation, Back Pain, Chronic, Gout, Neck Pain, Chronic, SLE Other Musculoskeletal History: Recurrent bilateral ankle sprains. Right ankle medial malleolar chip fracture on 12/27/10. Rheumatoid arthritis currently under methotrexate. Neurological History: Denies: Cerebral Aneurysms, Concussion, CVA, Headaches, Chronic, Head Trauma, Migraines, MS, Neuropathy, Peripheral, Parkinson's, Seizure, TIA Psychiatric History: Reports: Anxiety, Depression. Denies: Abuse, Victim of, ADD, ADHD, Addiction, Psych Hospitalization(s), PTSD, Suicide Attempt, Suicidal Ideation Endocrine/Metabolic History: Reports: Obesity/BMI 30+. Denies: Diabetes, Gestational, Diabetes, Type I, Diabetes, Type II, Hypothyroidism, IDDM Hematologic History: Reports: Anemia, Iron Deficiency. Denies: Blood Transfusion(s) Immunologic History: Reports: Immunosuppression, Other (See Below). Denies: AIDS, HIV, SLE Other Immunologic History: Note current methotrexate therapy. Oncologic (Cancer) History: Reports: None. Denies: Basal Cell Carcinoma, Breast , Cervix, Hodgkin's Lymphoma, Leukemia, Lymphoma, Malignant Melanoma, Non- Hodgkin's Lymphoma, Ovarian, Squamous Cell Carcinoma, Uterine Dermatologic History: Reports: None. Denies: Eczema, Psoriasis - Infectious Disease History Infectious Disease History: Reports: Chicken Pox, Mononucleosis (On 12/27/11). Denies: C-Difficile, Measles, Meningitis, MRSA, Mumps, Pertussis (Whooping Cough ), Rheumatic Fever, Rubella, Scarlet Fever, Shingles, TB, VRE - Past Surgical History Head Surgeries/Procedures: Reports: None HEENT Surgical History: Reports: Oral Surgery, Other (See Below). Denies: Adenoidectomy, Cataract Surgery, Eye Surgery, Laser Surgery, LASIK, Myringotomy w Tube(s), Naso-Sinus Surgery, Tonsillectomy Other HEENT Surgeries/Procedures: Lorman teeth extraction 4 at age 17. Subsequent teeth extractions4 with subsequent reconstructive maxillary and mandibular jaw surgery. Cardiovascular Surgical History: Reports: None. Denies: Varicose Respiratory Surgical History: Reports: None. Denies: Thoracentesis GI Surgical History: Reports: Hernia, Abdominal, Other (See Below). Denies: Appendectomy, Cholecystectomy Other GI Surgeries/Procedures: Abdominal ventral hernia repair on 03/27/18. Female Surgical History: Reports: Section, D&C, Dilitation & Evacuation, Other (See Below). Denies: Breast Biopsy, Breast Implant, Cystectomy, Hysterectomy, Salpingo-Oophorectomy Other Female Surgeries/Procedures: C-sections and D&Cs as above. Bilateral salpingectomies rather than tubal ligations at age 27 Endocrine Surgical History: Reports: None. Denies: Thyroid Biopsy Neurological Surgical History: Reports: None. Denies: C-Spine, Discectomy, Laminectomy, Lumbar Spine, Sacral Spine, Spinal Fusion, Thoracic Spine, Vertebroplasty Musculoskeletal Surgical History: Reports: None. Denies: Arthroscopic Procedure , Carpal Tunnel, Ganglion Cyst, Joint Replacement, ORIF, Shoulder Surgery Oncologic Surgical History: Reports: None Dermatological Surgical History: Reports: None - Past Imaging History Past Imaging History: Reports: CAT Scan (CT of the wrist on 01/10/18.), Sleep Study (At age 23.), Ultrasound (OB ultrasounds. Complete abdominal ultrasound on 02/29/12. Right upper quadrant ultrasound on 01/28/11.). Denies: Mammogram Social & Family History - Tobacco Use Smoking Status *Q: Former Smoker Tobacco Use Within Last Twelve Months: No Years of Tobacco use: 7 Packs/Tins Daily: 0.1 Packs/Tins Daily Comment: 1 pack per week between ages 18 and 25. Used Tobacco, but Quit: Yes Smoking Cessation Information Provided To Patient: No Source of Second Hand Smoke Exposure: uses E cigarettes. Second Hand Smoke Education Provided: Yes - Caffeine Use Caffeine Use: Reports: Coffee, Soda, Tea. Denies: Energy Drinks Caffeine Use Comment: One cup per day of coffee. Patient usually has 1 Mt. dew per week. - Alcohol Use Alcohol Use History: Yes Days Per Week of Alcohol Use: 0 Number of Drinks Per Day: 1 Number of Drinks Per Day Comment: Usually mixed drinks once every 34 months. No previous DWIs, problems with alcohol abuse, etc. Total Drinks Per Week: 0 Alcohol Use in Last Twelve Months: Yes Alcohol Use Frequency: Rarely - Recreational Drug Use Recreational Drug Use: No Drug Use in Last 12 Months: No Recreational Drug Type: Denies: Amphetamines (Speed), Heroin, Inhalants (Glues, Solvents, Aerosols), Ketamines, LSD (Acid), Methamphetamine, Morphine, Oxycodone - Sexual History Sexual History: Reports: Sexually Active, Single Partner. Denies: Oral Sex - Living Situation & Occupation Living situation: Reports: (2013. One child prior to marriage, who was adopted out. 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 ED EXAM, GENERAL - Physical Exam Exam: See Below Exam Limited By: No Limitations General Appearance: Alert, WD/WN, No Apparent Distress. No: Anxious Head: Atraumatic, Normocephalic Neck: Normal Inspection, Supple, Non-Tender, Full Range of Motion. No: Lymphadenopathy (L), Lymphadenopathy (R), Thyromegaly Respiratory/Chest: No Respiratory Distress, Lungs Clear, Normal Breath Sounds, No Accessory Muscle Use, Chest Non-Tender. No: Pleural Rub, Retractions Cardiovascular: Normal Peripheral Pulses, Regular Rate, Rhythm, No Edema, No Gallop, No JVD, No Murmur, No Rub. No: Gallop/S3, Gallop/S4, Friction Rub Peripheral Pulses: 2+: Radial (L), Radial (R), Dorsalis Pedis (L), Dorsalis Pedis (R) GI/Abdominal: Normal Bowel Sounds, Soft, Non-Tender, No Organomegaly, No Distention, No Abnormal Bruit, No Mass, Pelvis Stable, Other (obese). No: Guarding (Female) Exam: Deferred Rectal (Female) Exam: Deferred Back Exam: Normal Inspection, Full Range of Motion. No: CVA Tenderness (L), CVA Tenderness (R), Muscle Spasm Extremities: No Pedal Edema, Normal Capillary Refill, Leg Pain (Mild to moderate bilateral left malleolar palpation pain with no joint instability, effusion, etc. with negative anterior drawers, etc.. 24 centimeter irregular superficial abrasion over the right patella with no evidence of significant injury in the knees bilaterally.). No: Freda's Sign Neurological: Alert, Oriented, CN II-XII Intact, Normal Cognition, Normal Gait, No Motor/Sensory Deficits Psychiatric: Normal Affect, Normal Mood Skin Exam: Warm, Dry, Normal Color, No Rash, Stud(s) (Multiple), Tattoo(s) ( Multiple), Wound/Incision (Abrasion as above). No: Diaphoretic Lymphatic: No Adenopathy ED TRAUMA EXTREMITY PROCEDURES - Splinting Left Lower Extremity Splint Site: Left ankle Pre-Procedure NV Status: Normal Post-Procedure NV Status: Normal Splint Material: Air Splint, Other (Jonathan wrap) Splint Design: Stirrup, Other (As above) Applied & Form Fitted By: Nurse Provider Post-Splint Application NV Check: NV Status Normal, Good Position Complications: No Course - Vital Signs Last Recorded V/S: Last Vital Signs Temp 36.2 C 08/29/18 16:25 Pulse 89 08/29/18 16:25 Resp 20 08/29/18 16:25 BP 127/64 08/29/18 17:44 Pulse Ox 100 08/29/18 16:25 Vital Signs - 24 hr 08/29/18 08/29/18 16:25 17:44 Temperature [ 36.2 C Temporal] Pulse, 89 Peripheral [ Right Pulse Oximetry] Respiratory 20 Rate Blood Pressure 147/91 H 127/64 [Right Upper Arm] O2 Sat by Pulse 100 Oximetry - Orders/Labs/Meds Orders: Active Orders 24 hr Category Date Time Status Ankle Min 3V Lt [CR] Stat Exams 08/29/18 16:38 Taken Durable Medical Equipment for Discharge [DME for Oth 08/29/18 18:02 Ordered Discharge] [COMM] Routine Obtain Past Medical Record [OM.PC] Routine Oth 08/29/18 16:37 Active Labs: None Meds: None - Radiology Interpretation Free Text/Narrative:: X-rays of the left ankle, 3 views, shows no evidence of fracture or dislocation. Note that there is a calcification posterior to the talus consistent with either accessory bone and/or tendon calcification. Ankle mortise is intact. Departure - Departure Time of Disposition: 18:50 Disposition: Home, Self-Care 01 Condition: Good Clinical Impression: Abrasion, Tobacco abuse counseling, Mixed anxiety depressive disorder Ankle sprain Qualifiers: Encounter type: initial encounter Involved ligament of ankle: other ligament Laterality: left Qualified Code(s): S93.492A - Sprain of other ligament of left ankle, initial encounter Rheumatoid arthritis Qualifiers: Rheumatoid arthritis location: multiple sites Rheumatoid factor presence: without rheumatoid factor Qualified Code(s): M06.09 - Rheumatoid arthritis without rheumatoid factor, multiple sites Obesity Qualifiers: Obesity type: due to excess calories Obesity classification: adult class 2 ( BMI 35 - 39.9) Serious obesity comorbidity presence: without serious comorbidity Body mass index: BMI 39.0-39.9 Qualified Code(s): E66.09 - Other obesity due to excess calories Hypertension Qualifiers: Hypertension type: essential hypertension Qualified Code(s): I10 - Essential ( primary) hypertension - Discharge Information *PRESCRIPTION DRUG MONITORING PROGRAM REVIEWED*: Not Applicable *COPY OF PRESCRIPTION DRUG MONITORING REPORT IN PATIENT HERI: Not Applicable Instructions: Crutch Use, Adult, [id number], Health Risks of Smoking, Ankle Sprain, [id number], What You Need to Know About Electronic Cigarettes Referrals: Zahra Kern PA-C [Primary Care Provider] - Forms: ED Department Discharge, ED Return to Work/School Form Additional Instructions: 1. Follow up with your regular provider in 7-10 days for reevaluation and possible repeat x-rays as discussed. Bring these discharge instructions with you to that visit. 2. Tylenol 650 mg by mouth every 4 hours when necessary as directed. 3. BenGay or equivalent, heating pad, and/or ice packs as directed. 4. Ice packs and leg elevation as discussed with strict compliance of crutches , Jonathan wrap, and air ankle splint as discussed. 5. Work excuse- See Form 6. Stop all tobacco exposure MARCIE as directed with counselling, information, etc. given 7. Limited activity and weightbearing as discussed. 8. Immediately after this visit verify that your cellular telephone's voicemail has been activated and is empty. Also verify that your home telephone 's answering machine is operating properly and has space to receive messages. Note that it is sometimes necessary for us to be able to contact you at a later date to discuss your medical care. 9. Please remember that we are ALWAYS here for you and want to answer any questions you may have. Feel free to call the hospital any time and we call you back MARCIE. - Problem List & Annotations (1) Ankle sprain SNOMED Code(s): 69684347 Code(s): S93.409A - SPRAIN OF UNSP LIGAMENT OF UNSPECIFIED ANKLE, INIT ENCNTR Status: Acute Priority: High Current Visit: No Onset Date: Annotation/Comment:: Air ankle splint, etc. as above. Work excuse provided. Close follow-up by regular provider as per discharge instructions. Otherwise symptomatic relief. Qualifiers: Encounter type: initial encounter Involved ligament of ankle: other ligament Laterality: left Qualified Code(s): S93.492A - Sprain of other ligament of left ankle, initial encounter (2) Abrasion SNOMED Code(s): 049803573 Code(s): T14.8XXA - OTHER INJURY OF UNSPECIFIED BODY REGION, INITIAL ENCOUNTER Status: Acute Priority: High Current Visit: Yes Onset Date: Annotation/Comment:: Very superficial abrasion of the right knee. Wound care discussed. Last TdAP on 07/05/17 confirmed by emergency room nurse. (3) Hypertension SNOMED Code(s): 96037858 Code(s): I10 - ESSENTIAL (PRIMARY) HYPERTENSION Status: Chronic Priority : Medium Current Visit: Yes Annotation/Comment:: Initially mildly elevated however improved prior to discharge without treatment. Observe closely by her regular provider. Qualifiers: Hypertension type: essential hypertension Qualified Code(s): I10 - Essential (primary) hypertension (4) Mixed anxiety depressive disorder SNOMED Code(s): 860556092 Code(s): F41.8 - OTHER SPECIFIED ANXIETY DISORDERS Status: Chronic Priority: Medium Current Visit: No Annotation/Comment:: Stable by history and her current medical therapy. (5) Obesity SNOMED Code(s): 660617642, 569509554 Code(s): E66.9 - OBESITY, UNSPECIFIED Status: Chronic Priority: Medium Current Visit: No Annotation/Comment:: She is apparently currently being evaluated for gastric bypass surgery. Qualifiers: Obesity type: due to excess calories Obesity classification: adult class 2 (BMI 35 - 39.9) Serious obesity comorbidity presence: without serious comorbidity Body mass index: BMI 39.0-39.9 Qualified Code(s): E66.09 - Other obesity due to excess calories; Z68.39 - Body mass index (BMI) 39.0-39.9, adult (6) Rheumatoid arthritis SNOMED Code(s): 57399961 Code(s): M06.9 - RHEUMATOID ARTHRITIS, UNSPECIFIED Status: Chronic Priority: Medium Current Visit: No Annotation/Comment:: Stable by history with current methotrexate therapy. Current Tylenol therapy was decreased secondary to excessive dose with previous history of LFTs elevation. She also advised not to use Tylenol PM secondary to this disrupting her natural sleep cycle Qualifiers: Rheumatoid arthritis location: multiple sites Rheumatoid factor presence: without rheumatoid factor Qualified Code(s): M06.09 - Rheumatoid arthritis without rheumatoid factor, multiple sites (7) Tobacco abuse counseling SNOMED Code(s): 617557461, 686841064, 741646282 Code(s): Z71.6 - TOBACCO ABUSE COUNSELING Status: Chronic Priority: Medium Current Visit: No Annotation/Comment:: Patient and her were counseled on E-cigarette use, etc. - Problem List Review Problem List Initiated/Reviewed/Updated: Yes - My Orders Last 24 Hours: My Active Orders 08/29/18 16:37 Obtain Past Medical Record [OM.PC] Routine 08/29/18 16:38 Ankle Min 3V Lt [CR] Stat 08/29/18 18:02 Durable Medical Equipment for Discharge [DME for Discharge] [COMM] Routine - Assessment/Plan Last 24 Hours: My Active Orders 08/29/18 16:37 Obtain Past Medical Record [OM.PC] Routine 08/29/18 16:38 Ankle Min 3V Lt [CR] Stat 08/29/18 18:02 Durable Medical Equipment for Discharge [DME for Discharge] [COMM] Routine Assessment:: As above Plan: As above. Extensive precautions were given to the patient and her , who are in agreement with the treatment plan. See Patient Instructions for further treatment and plan.
[2018-08-29 17:44] VITALS: BP 127/64
== END 2018-08-29 18:45 | disposition home or self-care (01) ==
LOC: LL.ED 16:22
DX: S93.492A Sprain of other ligament of left ankle, initial encounter (principal); S80.211A Abrasion, right knee, initial encounter; F41.8 Other specified anxiety disorders; M06.09 Rheumatoid arthritis without rheumatoid factor, multiple sites; E66.09 Other obesity due to excess calories; I10 Essential (primary) hypertension; Z87.891 Personal history of nicotine dependence; Z88.0 Allergy status to penicillin; Z79.899 Other long term (current) drug therapy; W18.30XA Fall on same level, unspecified, initial encounter; Y99.0 Civilian activity done for income or pay
CPT/HCPCS: 73610-LT; 99283-25

== ENCOUNTER 2019-04-05 19:15 | Emergency (ER) | payer BC ==
--- NOTE | 2019-04-05 19:20 | EDM.PDOC ---
ED HPI GENERAL MEDICAL PROBLEM - General Chief Complaint: Respiratory Problem Stated Complaint: chest pressure Time Seen by Provider: 04/05/19 19:18 Source of Information: Reports: Patient, Family (), Old Records ([facility] chart/EMR) History Limitations: Reports: No Limitations - History of Present Illness INITIAL COMMENTS - FREE TEXT/NARRATIVE: The patient was brought to the emergency room via private automobile by her for evaluation of 8/10 bilateral sharp upper chest wall pain on the right greater than left, with some radiation to the back with symptoms worsened with deep inspiration. She was treated with Zithromax about 2 weeks ago for bronchitis with no current cough, fever, history of injury, etc.. The patient denies any chest pressure, heart flutter, dizziness, orthostasis, orthopnea, diaphoresis, paresthesias, recent decreased exercise tolerance, or any other anginal-type symptoms. No recent history of abdominal pain, heartburn, nausea, diarrhea, melena, gross hematochezia, or any food intolerance, including fatty foods, etc.. Note symptoms started one hour prior to arrival with 500 mg of Tylenol taken at that time and additional Celebrex earlier this afternoon. Onset: Today, Sudden Onset Date: 04/05/19 Onset Time: 18:00 Duration: Constant, Getting Worse Location: Reports: Chest, Back, Radiates to (As above). Denies: Head, Face, Neck, Upper Extremity, Left, Upper Extremity, Right Quality: Reports: Same as Previous Episode, Sharp Severity: Moderate Improves with: Reports: None Worsens with: Reports: Breathing Context: Reports: Other (As above). Denies: Sick Contact, Trauma Associated Symptoms: Reports: Chest Pain. 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, NSAIDS Right Upper Chest Pain Score (Numeric/FACES): 8 - Related Data Allergies Allergy/AdvReac Type Severity Reaction Status Date / Time nickel Allergy Rash Verified 04/05/19 19:20 Penicillins Allergy Hives Verified 04/05/19 19:20 Home Meds: Home Meds Folic Acid 1 mg PO BEDTIME 08/11/18 [History] Methotrexate 4 tab PO TU 08/11/18 [History] Metoprolol Succinate [Toprol XL] 25 mg PO BEDTIME 08/11/18 [History] Sertraline [Zoloft] 100 mg PO BEDTIME 08/11/18 [History] hydroCHLOROthiazide [Hydrochlorothiazide] 25 mg PO DAILY #0 08/29/18 [Rx] Acetaminophen [Acetaminophen Extra Strength] 1 tab PO Q6HR PRN 04/05/19 [History ] Celecoxib [CeleBREX] 100 mg PO DAILY PRN 04/05/19 [History] Tofacitinib Citrate [Xeljanz Xr] 11 mg PO DAILY 04/05/19 [History] Past Medical History HEENT History: Reports: Allergic Rhinitis, Impaired Vision. Denies: Cataract, Glaucoma, Hard of Hearing, Macular Degeneration, Otitis Media, Retinal Detachment Other HEENT History: Sseasonal allergies. Hx. of recurrent tonsilitis as a child. She wears glasses and soft contact lenses. Cardiovascular History: Reports: Hypertension. Denies: Afib, Aneurysm, Arrhythmia, Blood Clots/VTE/DVT, CAD, Heart Failure, Heart Murmur, High Cholesterol, SC, PVD, Syncope Respiratory History: Reports: Intubation, Previous, Sleep Apnea. Denies: Asthma , Bronchitis, Recurrent, COPD, Intubation, Difficult, PE, Pneumonia, Recurrent, Pneumothorax, TB Other Respiratory History: She was compliant with her CPAP machine. Gastrointestinal History: Reports: Other (See Below). Denies: Celiac Disease, Cholelithiasis, Chronic Constipation, Chronic Diarrhea, Fecal Incontinence, Gastritis, GERD, GI Bleed, Hepatitis, Hiatal Hernia, Inflammatory Bowel Disease , Irritable Bowel Syndrome, Jaundice, Pancreatitis, PUD Other Gastrointestinal History: LFT elevation secondary to either fatty liver and/or methotrexate therapy. Genitourinary History: Reports: None. 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 Denies: Dysfunctional Uterine Bleeding, Endometriosis, Fibroids : 7 Para: 5 LMP (Approximate): Other (See Below) Other OUTBOARD MOTORBOAT OPERATOR History: Total number of pregnacy is 7 with Miscarriages x 2. Her first miscarriage due to tear in wall of placenta/placental abruption with SAB at 17 weeks with D&C thereafter after delivery. Second miscarriage unknown cause found 20 weeks with delivery and subsequent D&C. 4 live births with one of those being adopted out. 1 secondary to breech presentation was at full-term with subsequent follow-up scheduled secondary to previous as above. LMP on 08/01/18. Musculoskeletal History: Reports: Arthritis, Fracture, Osteoarthritis, RA. Denies: Amputation, Back Pain, Chronic, Gout, Neck Pain, Chronic, SLE Other Musculoskeletal History: Recurrent bilateral ankle sprains. Right ankle medial malleolar chip fracture on 12/27/10. Rheumatoid arthritis currently under methotrexate. Neurological History: Reports: None. Denies: Concussion, CVA, Headaches, Chronic, Head Trauma, Migraines, Neuropathy, Peripheral, Parkinson's, Seizure, TIA, Vertigo Psychiatric History: Reports: Anxiety, Depression. Denies: Abuse, Victim of, ADD, ADHD, Addiction, Psych Hospitalization(s), PTSD, Suicide Attempt, Suicidal Ideation Endocrine/Metabolic History: Reports: Obesity/BMI 30+. Denies: Diabetes, Gestational, Diabetes, Type I, Diabetes, Type II, Hypothyroidism, IDDM Hematologic History: Reports: Anemia, Iron Deficiency, Other (See Below). Denies: Blood Transfusion(s) Other Hematologic History: Iron deficiency anemia during pregnancies. Immunologic History: Reports: Immunosuppression, Other (See Below). Denies: AIDS, HIV, SLE Other Immunologic History: Note current methotrexate and Xelgance therapy. Oncologic (Cancer) History: Reports: None. Denies: Basal Cell Carcinoma, Breast , Cervix, Hodgkin's Lymphoma, Leukemia, Lymphoma, Malignant Melanoma, Non- Hodgkin's Lymphoma, Ovarian, Squamous Cell Carcinoma, Uterine Dermatologic History: Reports: None. Denies: Eczema, Psoriasis - Infectious Disease History Infectious Disease History: Reports: Chicken Pox, Mononucleosis (On 12/27/11). Denies: C-Difficile, Measles, Meningitis, MRSA, Mumps, Pertussis (Whooping Cough ), Rheumatic Fever, Rubella, Scarlet Fever, Shingles, TB, VRE - Past Surgical History Head Surgeries/Procedures: Reports: None HEENT Surgical History: Reports: Oral Surgery, Other (See Below). Denies: Adenoidectomy, Cataract Surgery, Eye Surgery, Laser Surgery, LASIK, Myringotomy w Tube(s), Naso-Sinus Surgery, Tonsillectomy Other HEENT Surgeries/Procedures: Billings teeth extraction 4 at age 17. Subsequent teeth extractions4 with subsequent reconstructive maxillary and mandibular jaw surgery. Cardiovascular Surgical History: Reports: None. Denies: Varicose Respiratory Surgical History: Reports: None. Denies: Thoracentesis GI Surgical History: Reports: Hernia, Abdominal, Other (See Below). Denies: Appendectomy, Cholecystectomy Other GI Surgeries/Procedures: Abdominal ventral hernia repair on 03/27/18. Female Surgical History: Reports: Section, D&C, Dilitation & Evacuation, Other (See Below). Denies: Breast Biopsy, Breast Implant, Cystectomy, Hysterectomy, Salpingo-Oophorectomy Other Female Surgeries/Procedures: C-sections and D&Cs as above. Bilateral salpingectomies rather than tubal ligations at age 27 Endocrine Surgical History: Reports: None. Denies: Thyroid Biopsy Neurological Surgical History: Reports: None. Denies: C-Spine, Discectomy, Laminectomy, Lumbar Spine, Sacral Spine, Spinal Fusion, Thoracic Spine, Vertebroplasty Musculoskeletal Surgical History: Reports: None. Denies: Arthroscopic Procedure , Carpal Tunnel, Ganglion Cyst, Joint Replacement, ORIF, Shoulder Surgery Oncologic Surgical History: Reports: None Dermatological Surgical History: Reports: None - Past Imaging History Past Imaging History: Reports: CAT Scan (CT of the wrist on 01/10/18.), Sleep Study (At age 23.), Ultrasound (OB ultrasounds. Complete abdominal ultrasound on 02/29/12. Right upper quadrant ultrasound on 01/28/11.). Denies: Mammogram Social & Family History - Tobacco Use Smoking Status *Q: Former Smoker Tobacco Use Within Last Twelve Months: No Years of Tobacco use: 7 Packs/Tins Daily: 0.1 Packs/Tins Daily Comment: 1 pack per week between ages 18 and 25. Used Tobacco, but Quit: Yes Smoking Cessation Information Provided To Patient: No Second Hand Smoke Exposure: Yes Source of Second Hand Smoke Exposure: uses E cigarettes. - Caffeine Use Caffeine Use: Reports: Coffee (One cup per day), Soda (1 soda every 2 days.), Tea (1 can per day). Denies: Energy Drinks - Alcohol Use Alcohol Use History: Yes Days Per Week of Alcohol Use: 0 Number of Drinks Per Day: 1 Number of Drinks Per Day Comment: Usually mixed drinks once every 34 months. No previous DWIs, problems with alcohol abuse, etc. Total Drinks Per Week: 0 Alcohol Use in Last Twelve Months: Yes Alcohol Use Frequency: Rarely - Recreational Drug Use Recreational Drug Use: No Drug Use in Last 12 Months: No Recreational Drug Type: Denies: Amphetamines (Speed), Cocaine, Heroin, Inhalants (Glues, Solvents, Aerosols), LSD (Acid), Marijuana/Hashish, Methamphetamine, Morphine, Oxycodone - Sexual History Sexual History: Reports: Sexually Active, Single Partner. Denies: Oral Sex - Living Situation & Occupation Living situation: Reports: (2013. One child prior to marriage, who was adopted out. 4 children with current ), with Family Occupation: Employed ([employer] at [employer] - [place]) ED ROS GENERAL - Review of Systems Review Of Systems: Comprehensive ROS is negative, except as noted in HPI. ED EXAM, GENERAL - Physical Exam Exam: See Below Exam Limited By: No Limitations General Appearance: Alert, WD/WN, No Apparent Distress, Anxious (Mild to moderate) Eye Exam: Bilateral Eye: EOMI, Normal Inspection (No nystagmus. Bilateral soft contact lenses.), PERRL Ears: Normal External Exam, Normal Canal, Hearing Grossly Normal, Normal TMs Nose: Normal Inspection, Normal Mucosa, No Blood Throat/Mouth: Normal Inspection, Normal Lips, Normal Teeth, Normal Gums, Normal Oropharynx, Normal Voice, No Airway Compromise. No: Dysphagia, Perioral Cyanosis Head: Atraumatic, Normocephalic. No: Facial Swelling, Facial Tenderness Neck: Normal Inspection, Supple, Non-Tender, Full Range of Motion. No: Carotid Bruit, Lymphadenopathy (L), Lymphadenopathy (R), Thyromegaly Respiratory/Chest: No Respiratory Distress, Lungs Clear, Normal Breath Sounds, No Accessory Muscle Use. No: Chest Non-Tender (Left and right superior moderate palpation pain without local swelling, erythema crepitation, deformity , etc.), Pleural Rub, Retractions Cardiovascular: Normal Peripheral Pulses, Regular Rate, Rhythm, No Edema, No Gallop, No JVD, No Murmur, No Rub. No: Gallop/S3, Gallop/S4, Friction Rub Peripheral Pulses: 2+: Radial (L), Radial (R), Dorsalis Pedis (L), Dorsalis Pedis (R) GI/Abdominal: Normal Bowel Sounds, Soft, Non-Tender, No Organomegaly, No Distention, No Abnormal Bruit, No Mass, Pelvis Stable, Other (obese). No: Guarding (Female) Exam: Deferred Rectal (Female) Exam: Deferred Back Exam: Normal Inspection, Full Range of Motion. No: CVA Tenderness (L), CVA Tenderness (R), Muscle Spasm Extremities: Normal Inspection, Normal Range of Motion, Non-Tender, No Pedal Edema, Normal Capillary Refill. No: Freda's Sign Neurological: Alert, Oriented, CN II-XII Intact, Normal Cognition, Normal Gait, Normal Reflexes (Negative Babinski's), No Motor/Sensory Deficits Psychiatric: Anxious (Mild to moderate), Depressed Mood (Borderline) Skin Exam: Warm, Dry, Intact, Normal Color, No Rash, Stud(s) (Multiple including facial and tongue). No: Diaphoretic, Wound/Incision Lymphatic: No Adenopathy Course - Vital Signs Last Recorded V/S: Last Vital Signs Temp 36.9 C 04/05/19 19:15 Pulse 72 04/05/19 19:15 Resp 18 04/05/19 19:15 BP 154/98 H 04/05/19 19:15 Pulse Ox 98 04/05/19 19:15 Vital Signs - 24 hr 04/05/19 04/05/19 04/05/19 19:15 19:30 19:45 Temperature [ 36.9 C Oral] Pulse, 72 66 70 Peripheral [ Pulse Oximetry] Respiratory 18 15 15 Rate Blood Pressure 154/98 H 136/91 H 140/90 [Left Upper Arm ] O2 Sat by Pulse 98 96 98 Oximetry - Orders/Labs/Meds Orders: Active Orders 24 hr Category Date Time Status Cardiac Monitoring [RC] . DIRECTED Care 04/05/19 19:20 Ordered Chest 2V [CR] Urgent Exams 04/05/19 19:20 Taken Obtain Past Medical Record [OM.PC] Routine Oth 04/05/19 19:20 Active Meds: Medications Discontinued Medications Generic Name Dose Route Start Last Admin Trade Name Freq PRN Reason Stop Dose Admin Methylprednisolone Acetate 80 mg 04/05/19 19:42 Depo-Medrol IM 04/05/19 19:43 ONETIME ONE - Radiology Interpretation Free Text/Narrative:: teletypesetter monitor shows normal sinus rhythm with heart rate in the 60s to 70s with no ectopy or arrhythmia. Chest x-ray, PA and lateral shows mild pulmonary obstructive disease and osteophytic changes with no cardiomegaly, CHF, pulmonary infiltrates, pneumothorax, etc. Departure - Departure Time of Disposition: 20:00 Disposition: Home, Self-Care 01 Condition: Good Clinical Impression: Mixed anxiety depressive disorder, Pleurisy Rheumatoid arthritis Qualifiers: Rheumatoid arthritis location: multiple sites Rheumatoid factor presence: without rheumatoid factor Qualified Code(s): M06.09 - Rheumatoid arthritis without rheumatoid factor, multiple sites Hypertension Qualifiers: Hypertension type: essential hypertension Qualified Code(s): I10 - Essential ( primary) hypertension - Discharge Information *PRESCRIPTION DRUG MONITORING PROGRAM REVIEWED*: Not Applicable *COPY OF PRESCRIPTION DRUG MONITORING REPORT IN PATIENT HERI: Not Applicable Instructions: Chest Wall Pain, [id number], Pleurisy, [id number] Referrals: Zahra Kern PA-C [Primary Care Provider] - Forms: ED Department Discharge, ED Return to Work/School Form Additional Instructions: 1. Follow up with your regular provider in 10-14 days as needed, if symptoms persist. Bring these discharge instructions with you to that visit.. 2. BenGay or equivalent, heating pad, and/or ice packs as directed. 3. Work excuse- See Form 4. Immediately after this visit verify that your cellular telephone's voicemail has been activated and is empty. Also verify that your home telephone 's answering machine is operating properly and has space to receive messages. Note that it is sometimes necessary for us to be able to contact you at a later date to discuss your medical care. 5. Please remember that we are ALWAYS here for you and want to answer any questions you may have. Feel free to call the hospital any time and we call you back [facility]. - Problem List & Annotations (1) Pleurisy SNOMED Code(s): 320410639 Code(s): R09.1 - PLEURISY Status: Acute Priority: High Current Visit: Yes Onset Date: 04/05/19 Annotation/Comment:: Note recent bronchitis with completion of Zithromax therapy about one week ago. Negative strep screen at that time by patient history. No recent fever, cough, wheezing, etc. No history of recent injury. Note chest pain reproducible by exam. No indication of cardiac etiology. Symptomatic relief as per discharge instructions. IM Depo- Medrol given. Note concomitant rheumatoid arthritis with current aggressive therapy. (2) Hypertension SNOMED Code(s): 67439223 Code(s): I10 - ESSENTIAL (PRIMARY) HYPERTENSION Status: Chronic Priority : Medium Current Visit: Yes Annotation/Comment:: Blood pressure somewhat elevated in the emergency room. No further treatment indicated. Continue to observe closely by her regular provider. Qualifiers: Hypertension type: essential hypertension Qualified Code(s): I10 - Essential (primary) hypertension (3) Mixed anxiety depressive disorder SNOMED Code(s): 009083888 Code(s): F41.8 - OTHER SPECIFIED ANXIETY DISORDERS Status: Chronic Priority: Medium Current Visit: Yes Annotation/Comment:: Moderate control based on today's exam. Continue to observe closely by regular provider. (4) Obesity SNOMED Code(s): 643347279, 788389281 Code(s): E66.9 - OBESITY, UNSPECIFIED Status: Chronic Priority: Medium Current Visit: Yes Annotation/Comment:: She is apparently currently being evaluated for gastric bypass surgery with current problems with insurance. Qualifiers: Obesity type: due to excess calories Obesity classification: adult class 2 (BMI 35 - 39.9) Serious obesity comorbidity presence: without serious comorbidity Body mass index: BMI 39.0-39.9 Qualified Code(s): E66.09 - Other obesity due to excess calories; Z68.39 - Body mass index (BMI) 39.0-39.9, adult (5) Rheumatoid arthritis SNOMED Code(s): 31073893 Code(s): M06.9 - RHEUMATOID ARTHRITIS, UNSPECIFIED Status: Chronic Priority: Medium Current Visit: No Annotation/Comment:: As above. 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 Qualifiers: Rheumatoid arthritis location: multiple sites Rheumatoid factor presence: without rheumatoid factor Qualified Code(s): M06.09 - Rheumatoid arthritis without rheumatoid factor, multiple sites - Problem List Review Problem List Initiated/Reviewed/Updated: Yes - My Orders Last 24 Hours: My Active Orders 04/05/19 19:20 Cardiac Monitoring [RC] . DIRECTED Chest 2V [CR] Urgent Obtain Past Medical Record [OM.PC] Routine - Assessment/Plan Last 24 Hours: My Active Orders 04/05/19 19:20 Cardiac Monitoring [RC] . DIRECTED Chest 2V [CR] Urgent Obtain Past Medical Record [OM.PC] Routine Assessment:: As above Plan: As above. Extensive precautions were given to the patient and her , who are in agreement with the treatment plan. See Patient Instructions for further treatment and plan.
[2019-04-05] MEDS ORDERED: methylPREDNISolone Acetate 80 MG/ML SDV IM ONE (19:42)
[2019-04-05 19:52] VITALS: BP 140/90; PULSE 70
== END 2019-04-05 19:55 | disposition home or self-care (01) ==
LOC: LL.ED 19:15
DX: R09.1 Pleurisy (principal); F41.8 Other specified anxiety disorders; I10 Essential (primary) hypertension; M06.09 Rheumatoid arthritis without rheumatoid factor, multiple sites; Z87.891 Personal history of nicotine dependence; E66.9 Obesity, unspecified; Z91.09 Other allergy status, other than to drugs and biological substances; Z88.0 Allergy status to penicillin; Z79.899 Other long term (current) drug therapy
CPT/HCPCS: 71046; 96372; 99284-25; J1040

== ENCOUNTER 2020-01-06 22:49 | Emergency (ER) | payer BC ==
[2020-01-06] MEDS ORDERED: Sodium Chloride 0.9% 10 ML Syringe FLUSH PRN (23:03)
[2020-01-06 23:11] VITALS: BP 127/79
--- NOTE | 2020-01-06 23:14 | EDM.PDOC ---
ED HPI GENERAL MEDICAL PROBLEM - General Chief Complaint: Chest Pain Stated Complaint: abd\chest pain Time Seen by Provider: 01/06/20 22:50 Source of Information: Reports: Patient, Old Records History Limitations: Reports: No Limitations - History of Present Illness INITIAL COMMENTS - FREE TEXT/NARRATIVE: She is brought to the emergency department by ambulance for evaluation of chest pain. She states she was at work tonight and was feeling somewhat dizzy and lightheaded. Her blood pressure was checked at work and was in the 150-160/90-100 range. She left work and was waiting in her vehicle for her to pick her up and apparently lost consciousness. On arrival of the windows desktop support she was awake. She was complaining of tenderness in her chest wall but no deep pain. No squeezing. No shortness of breath. No pain radiating into the neck or arms. No numbness or tingling in the fingers. She was given a single nitroglycerin and 4 baby aspirin in the ambulance. On arrival in the emergency department she complained of tenderness in the chest wall anteriorly but no other chest pain or tightness. No shortness of breath. She had had some abdominal pain earlier but that has resolved on arrival. She does have a history of a non-STEMI [place] in August of this year. Stress test at that time however were felt to be unremarkable with questionable decreased movement in the left inferior wall. She does have a history of hypertension for several years. History of seronegative rheumatoid arthritis. History of anxiety. She denies any recent illnesses. Mid-Anterior Chest Pain Score (Numeric/FACES): 8 - Related Data Allergies Allergy/AdvReac Type Severity Reaction Status Date / Time nickel Allergy Rash Verified 01/06/20 23:25 Penicillins Allergy Hives Verified 01/06/20 23:25 Home Meds: Home Meds Folic Acid 1 mg PO BEDTIME 08/11/18 [History] Metoprolol Succinate [Toprol XL] 25 mg PO BEDTIME 08/11/18 [History] hydroCHLOROthiazide [Hydrochlorothiazide] 25 mg PO DAILY #0 08/29/18 [Rx] Acetaminophen [Acetaminophen Extra Strength] 1 tab PO Q6HR PRN 04/05/19 [History] Adalimumab [Humira] 40 mg SQ ASDIRECTED 01/06/20 [History] Albuterol [Ventolin HFA] 1 - 2 puff INH Q4HR PRN 01/06/20 [History] Aspirin 81 mg PO DAILY 01/06/20 [History] DULoxetine [Cymbalta] 20 mg PO DAILY 01/06/20 [History] Losartan [Cozaar] 25 mg PO DAILY 01/06/20 [History] hydrOXYzine HCL [Hydroxyzine HCl] 25 mg PO BID PRN 01/06/20 [History] metHOTREXate sodium [Methotrexate] 20 mg SQ ASDIRECTED 01/06/20 [History] Past Medical History HEENT History: Reports: Allergic Rhinitis, Impaired Vision. Denies: Cataract, Glaucoma, Hard of Hearing, Macular Degeneration, Otitis Media, Retinal Detachment Other HEENT History: Sseasonal allergies. Hx. of recurrent tonsilitis as a child. She wears glasses and soft contact lenses. Cardiovascular History: Reports: Hypertension. Denies: Afib, Aneurysm, Arrhythmia, Blood Clots/VTE/DVT, CAD, Heart Failure, Heart Murmur, High Cholesterol, [place], PVD, Syncope Respiratory History: Reports: Intubation, Previous, Sleep Apnea. Denies: Asthma, Bronchitis, Recurrent, COPD, Intubation, Difficult, PE, Pneumonia, Recurrent, Pneumothorax, TB Other Respiratory History: She was compliant with her CPAP machine. Gastrointestinal History: Reports: Other (See Below). Denies: Celiac Disease, Cholelithiasis, Chronic Constipation, Chronic Diarrhea, Fecal Incontinence, Gastritis, GERD, GI Bleed, Hepatitis, Hiatal Hernia, Inflammatory Bowel Disease, Irritable Bowel Syndrome, Jaundice, Pancreatitis, PUD Other Gastrointestinal History: LFT elevation secondary to either fatty liver and/or methotrexate therapy. Genitourinary History: Reports: None. 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 Denies: Dysfunctional Uterine Bleeding, Endometriosis, Fibroids Other REFINERY PIPELINE OPERATOR History: Total number of pregnacy is 7 with Miscarriages x 2. Her first miscarriage due to tear in wall of placenta/placental abruption with SAB at 17 weeks with D&C thereafter after delivery. Second miscarriage unknown cause found 20 weeks with delivery and subsequent D&C. 4 live births with one of those being adopted out. 1 secondary to breech presentation was at full-term with subsequent follow-up scheduled secondary to previous C- section as above. LMP on 08/01/18. Musculoskeletal History: Reports: Arthritis, Fracture, Osteoarthritis, RA. Denies: Amputation, Back Pain, Chronic, Gout, Neck Pain, Chronic, SLE Other Musculoskeletal History: Recurrent bilateral ankle sprains. Right ankle medial malleolar chip fracture on 12/27/10. Rheumatoid arthritis currently under methotrexate. Neurological History: Reports: None. Denies: Concussion, CVA, Headaches, Chronic, Head Trauma, Migraines, Neuropathy, Peripheral, Parkinson's, Seizure, TIA, Vertigo Psychiatric History: Reports: Anxiety, Depression. Denies: Abuse, Victim of, ADD, ADHD, Addiction, Psych Hospitalization(s), PTSD, Suicide Attempt, Suicidal Ideation Endocrine/Metabolic History: Reports: Obesity/BMI 30+. Denies: Diabetes, Gestational, Diabetes, Type I, Diabetes, Type II, Hypothyroidism, IDDM Hematologic History: Reports: Anemia, Iron Deficiency, Other (See Below). Denies: Blood Transfusion(s) Other Hematologic History: Iron deficiency anemia during pregnancies. Immunologic History: Reports: Immunosuppression, Other (See Below). Denies: AIDS, HIV, SLE Other Immunologic History: Note current methotrexate and Xelgance therapy. Oncologic (Cancer) History: Reports: None. Denies: Basal Cell Carcinoma, Breast, Cervix, Hodgkin's Lymphoma, Leukemia, Lymphoma, Malignant Melanoma, Non- Hodgkin's Lymphoma, Ovarian, Squamous Cell Carcinoma, Uterine Dermatologic History: Reports: None. Denies: Eczema, Psoriasis - Infectious Disease History Infectious Disease History: Reports: Chicken Pox, Mononucleosis (On 12/27/11). Denies: C-Difficile, Measles, Meningitis, MRSA, Mumps, Pertussis (Whooping Cough), Rheumatic Fever, Rubella, Scarlet Fever, Shingles, TB, VRE - Past Surgical History Head Surgeries/Procedures: Reports: None HEENT Surgical History: Reports: Oral Surgery, Other (See Below). Denies: Adenoidectomy, Cataract Surgery, Eye Surgery, Laser Surgery, LASIK, Myringotomy w Tube(s), Naso-Sinus Surgery, Tonsillectomy Other HEENT Surgeries/Procedures: [place] teeth extraction 4 at age 17. Subsequent teeth extractions4 with subsequent reconstructive maxillary and mandibular jaw surgery. Cardiovascular Surgical History: Reports: None. Denies: Varicose Respiratory Surgical History: Reports: None. Denies: Thoracentesis GI Surgical History: Reports: Hernia, Abdominal, Other (See Below). Denies: [place] endectomy, Cholecystectomy Other GI Surgeries/Procedures: Abdominal ventral hernia repair on 03/27/18. Female Surgical History: Reports: Section, D&C, Dilitation & Evacuation, Other (See Below). Denies: Breast Biopsy, Breast Implant, Cystectomy, Hysterectomy, Salpingo-Oophorectomy Other Female Surgeries/Procedures: C-sections and D&Cs as above. Bilateral salpingectomies rather than tubal ligations at age 27 Endocrine Surgical History: Reports: None. Denies: Thyroid Biopsy Neurological Surgical History: Reports: None. Denies: C-Spine, Discectomy, Laminectomy, Lumbar Spine, Sacral Spine, Spinal Fusion, Thoracic Spine, Vertebroplasty Musculoskeletal Surgical History: Reports: None. Denies: Arthroscopic Procedure, Carpal Tunnel, Ganglion Cyst, Joint Replacement, ORIF, Shoulder Surgery Oncologic Surgical History: Reports: None Dermatological Surgical History: Reports: None - Past Imaging History Past Imaging History: Reports: CAT Scan (CT of the wrist on 01/10/18.), Sleep Study (At age 23.), Ultrasound (OB ultrasounds. Complete abdominal ultrasound on 02/29/12. Right upper quadrant ultrasound on 01/28/11.). Denies: Mammogram Social & Family History - Caffeine Use Caffeine Use: Reports: Coffee (One cup per day), Soda (1 soda every 2 days.), Tea (1 can per day). Denies: Energy Drinks Caffeine Use Comment: One cup per day of coffee. Patient usually has 1 Mt. dew per week. - Sexual History Sexual History: Reports: Sexually Active, Single Partner. Denies: Oral Sex - Living Situation & Occupation Living situation: Reports: (2013. One child prior to marriage, who was adopted out. 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 Denies: Nausea, Vomiting : Denies: Dysuria, Frequency, Urgency Musculoskeletal: Reports: Back Pain Skin: Reports: No Symptoms Neurological: Reports: No Symptoms Psychiatric: Reports: No Symptoms Hematologic/Lymphatic: Reports: No Symptoms Immunologic: Reports: No Symptoms ED EXAM, GENERAL - Physical Exam Exam: See Below Exam Limited By: No Limitations General Appearance: Alert, WD/WN Head: Atraumatic, Normocephalic Neck: Non-Tender, Full Range of Motion Respiratory/Chest: No Respiratory Distress, Lungs Clear, Normal Breath Sounds, Other (Moderate tenderness diffusely over the chest wall most severe at the right sternal border. No palpable defect. This does reproduce her pain.) Cardiovascular: Regular Rate, Rhythm, No Edema, No Gallop, No Murmur GI/Abdominal: Normal Bowel Sounds, Soft, Tender (Mild diffuse tenderness. No guarding or rebound.) (Female) Exam: Deferred Extremities: No Pedal Edema Neurological: Alert, Oriented Psychiatric: Normal Affect Skin Exam: Warm, Dry EKG INTERPRETATION Rhythm: NSR Docena: Normal ST-T: Normal Course - Vital Signs Text/Narrative:: Patient was stable throughout the emergency department stay. At times complain ed of increased abdominal pain but nothing persistent. She appeared completely comfortable the whole time. Blood pressure was stable and in normal range. EKG, x-ray and labs were all unremarkable. No evidence of acute cardiac event. Last Recorded V/S: Last Vital Signs Temp 36.4 C 01/06/20 23:09 Pulse 83 01/06/20 23:09 Resp 27 H 01/06/20 23:09 BP 127/79 01/06/20 23:09 Pulse Ox 100 01/06/20 23:09 - Orders/Labs/Meds Orders: Active Orders 24 hr Category Date Time Status Cardiac Monitoring [RC] . DIRECTED Care 01/06/20 23:01 Active EKG Documentation Completion [RC] ASDIRECTED Care 01/06/20 23:03 Active Peripheral IV Care [RC] . DIRECTED Care 01/06/20 23:04 Active Nothing per Oral Now Diet [DIET] Diet 01/07/20 Breakfast Active Chest 1V Frontal [CR] Stat Exams 01/06/20 23:04 Ordered Chest 2V [CR] Stat Exams 01/06/20 23:02 Ordered Sodium Chloride 0.9% [Saline Flush] Med 01/06/20 23:03 Active 10 ml FLUSH ASDIRECTED PRN Chest Pain Instruction [OM.PC] Stat Oth 01/06/20 23:00 Ordered Peripheral IV Insertion Adult [OM.PC] Routine Ot 01/06/20 23:03 Ordered Medication Orders Sodium Chloride (Saline Flush) 10 ml FLUSH ASDIRECTED PRN PRN Reason: Keep Vein Open Labs: Laboratory Tests 01/06/20 01/06/20 01/06/20 Range/Units 22:49 22:49 22:49 WBC 8.0 (4.0-10.2) K/uL RBC 4.25 (3.77-5.09) M/uL Hgb 12.1 D (11.7-15.5) g/dL Hct 37.0 (34.0-46.0) % MCV 87.1 D (84.0-98.0) fL MCH 28.5 (28.2-33.3) pg MCHC 32.7 (31.7-36.0) g/dL RDW 14.8 H (11.2-14.1) % Plt Count 261 (150-350) K/uL Neut % (Auto) 61.6 (45.0-80.0) % Lymph % (Auto) 28.2 (10.0-50.0) % [place] % (Auto) 9.4 (2.0-14.0) % Eos % (Auto) 0.5 (0.0-5.0) % Baso % (Auto) 0.3 (0.0-2.0) % Neut # (Auto) 4.93 (1.40-7.00) K/uL Lymph # (Auto) 2.25 (0.50-3.50) K/uL [place] # (Auto) 0.75 (0.00-1.00) K/uL Eos # (Auto) 0.04 (0.00-0.50) K/uL Baso # (Auto) 0.02 (0.00-0.20) K/uL PT 9.6 (9.5-12.0) SEC INR 1.0 APTT 25.2 (24.5-32.8) SEC D-Dimer, Quantitative (0-400) ng/mL Sodium 142 (136-145) mmol/L Potassium 3.7 (3.5-5.1) mmol/L Chloride 108 H (98-107) mmol/L Carbon Dioxide 26.2 (21.0-32.0) mmol/L BUN 19 H (7-18) mg/dL Creatinine 0.74 (0.51-1.17) mg/dL Est Cr Clr Drug Dosing 125.38 mL/min Estimated GFR (MDRD) > 60 mL/min Glucose 100 (74-106) mg/dL Lactic Acid (0.4-2.0) mmol/L Calcium 8.8 (8.5-10.1) mg/dL Magnesium 1.8 (1.8-2.4) mg/dL Total Bilirubin 0.4 (0.2-1.0) mg/dL AST 20 (15-37) U/L ALT 35 (12-78) U/L Alkaline Phosphatase 94 (46-116) IU/L Creatine Kinase 170 (26-308) U/L Creatine Kinase Index 0.6 (0.0-2.5) % CK-MB (CK-2) 1.00 (0.00-3.60) ng/mL Troponin I 0.000 (0.000-0.056) ng/mL Total Protein 7.0 (6.4-8.2) g/dL Albumin 3.4 (3.4-5.0) g/dL TSH, Ultra Sensitive 3.420 (0.358-3.740) mIU/mL 01/06/20 01/06/20 Range/Units 22:49 22:49 WBC (4.0-10.2) K/uL RBC (3.77-5.09) M/uL Hgb (11.7-15.5) g/dL Hct (34.0-46.0) % MCV (84.0-98.0) fL MCH (28.2-33.3) pg MCHC (31.7-36.0) g/dL RDW (11.2-14.1) % Plt Count (150-350) K/uL Neut % (Auto) (45.0-80.0) % Lymph % (Auto) (10.0-50.0) % [place] % (Auto) (2.0-14.0) % Eos % (Auto) (0.0-5.0) % Baso % (Auto) (0.0-2.0) % Neut # (Auto) (1.40-7.00) K/uL Lymph # (Auto) (0.50-3.50) K/uL [place] # (Auto) (0.00-1.00) K/uL Eos # (Auto) (0.00-0.50) K/uL Baso # (Auto) (0.00-0.20) K/uL PT (9.5-12.0) SEC INR APTT (24.5-32.8) SEC D-Dimer, Quantitative 121 (0-400) ng/mL Sodium (136-145) mmol/L Potassium (3.5-5.1) mmol/L Chloride (98-107) mmol/L Carbon Dioxide (21.0-32.0) mmol/L BUN (7-18) mg/dL Creatinine (0.51-1.17) mg/dL Est Cr Clr Drug Dosing mL/min Estimated GFR (MDRD) mL/min Glucose (74-106) mg/dL Lactic Acid 1.3 (0.4-2.0) mmol/L Calcium (8.5-10.1) mg/dL Magnesium (1.8-2.4) mg/dL Total Bilirubin (0.2-1.0) mg/dL AST (15-37) U/L ALT (12-78) U/L Alkaline Phosphatase (46-116) IU/L Creatine Kinase (26-308) U/L Creatine Kinase Index (0.0-2.5) % CK-MB (CK-2) (0.00-3.60) ng/mL Troponin I (0.000-0.056) ng/mL Total Protein (6.4-8.2) g/dL Albumin (3.4-5.0) g/dL TSH, Ultra Sensitive (0.358-3.740) mIU/mL Meds: Medications Generic Name Dose Route Start Last Admin Trade Name Freq PRN Reason Stop Dose Admin Sodium Chloride 10 ml 01/06/20 23:03 Saline Flush FLUSH ASDIRECTED PRN Keep Vein Open - Radiology Interpretation Free Text/Narrative:: Portable chest x-ray shows normal cardiac silhouette. No infiltrates. No free air. No masses. Departure - Departure Time of Disposition: 23:45 Disposition: Home, Self-Care 01 Condition: Good Clinical Impression: Chest wall pain, Mixed anxiety depressive disorder Hypertension Qualifiers: Hypertension type: essential hypertension Qualified Code(s): I10 - Essential ( primary) hypertension Rheumatoid arthritis Qualifiers: Rheumatoid arthritis location: multiple sites Rheumatoid factor presence: without rheumatoid factor Qualified Code(s): M06.09 - Rheumatoid arthritis without rheumatoid factor, multiple sites Obesity Qualifiers: Obesity type: due to excess calories Obesity classification: adult class 2 (BMI 35 - 39.9) Serious obesity comorbidity presence: without serious comorbidity Body mass index: BMI 39.0-39.9 Qualified Code(s): E66.09 - Other obesity due to excess calories - Discharge Information Instructions: Managing Your Hypertension Referrals: Tianna Sena PA-C [Primary Care Provider] - Forms: ED Department Discharge Additional Instructions: Resume usual home medications. Okay to return to work as scheduled. Follow-up with primary provider if symptoms are persisting or return to the emergency department if needed. Sepsis Event Note (ED) - Focused Exam Vital Signs: Vital Signs Temp Pulse Resp BP Pulse Ox 01/06/20 23:09 36.4 C 83 27 H 127/79 100 - My Orders Last 24 Hours: My Active Orders 01/06/20 23:00 Chest Pain Instruction [OM.PC] Stat 01/06/20 23:01 Cardiac Monitoring [RC] . DIRECTED 01/06/20 23:02 Chest 2V [CR] Stat 01/06/20 23:03 EKG Documentation Completion [RC] ASDIRECTED Sodium Chloride 0.9% [Saline Flush] 10 ml FLUSH ASDIRECTED PRN Peripheral IV Insertion Adult [OM.PC] Routine 01/06/20 23:04 Peripheral IV Care [RC] . DIRECTED Chest 1V Frontal [CR] Stat 01/07/20 Breakfast Nothing per Oral Now Diet [DIET] - Assessment/Plan Last 24 Hours: My Active Orders 01/06/20 23:00 Chest Pain Instruction [OM.PC] Stat 01/06/20 23:01 Cardiac Monitoring [RC] . DIRECTED 01/06/20 23:02 Chest 2V [CR] Stat 01/06/20 23:03 EKG Documentation Completion [RC] ASDIRECTED Sodium Chloride 0.9% [Saline Flush] 10 ml FLUSH ASDIRECTED PRN Peripheral IV Insertion Adult [OM.PC] Routine 01/06/20 23:04 Peripheral IV Care [RC] . DIRECTED Chest 1V Frontal [CR] Stat 01/07/20 Breakfast Nothing per Oral Now Diet [DIET]
[2020-01-06 23:30] LABS: CHLORIDE,CL 108 mmol/L (98-107); SODIUM,NA 142 mmol/L (136-145)
[2020-01-06 23:32] LABS: PTT,PARTIAL THROMBOPLSTIN TIME 25.2 SEC (24.5-32.8)
[2020-01-07 00:18] VITALS: PULSE 80
== END 2020-01-06 23:57 | disposition home or self-care (01) ==
LOC: LL.ED 22:49
DX: R07.89 Other chest pain (principal); F41.8 Other specified anxiety disorders; I10 Essential (primary) hypertension; M06.09 Rheumatoid arthritis without rheumatoid factor, multiple sites; E66.09 Other obesity due to excess calories; Z68.35 Body mass index [BMI] 35.0-35.9, adult; R10.84 Generalized abdominal pain; Z98.890 Other specified postprocedural states; Z91.048 Other nonmedicinal substance allergy status; Z88.0 Allergy status to penicillin; Z79.899 Other long term (current) drug therapy; Z79.82 Long term (current) use of aspirin
CPT/HCPCS: 36415; 71045; 80053; 82550; 82553; 83605; 83735; 84443; 84484; 85025; 85379; 85610; 85730; 93005; 99285-25

== ENCOUNTER 2020-05-28 01:07 | Emergency (ER) | payer BC ==
[2020-05-28] MEDS: Ondansetron 4 MG/2 ML SDV IVPUSH ONE (01:30)
[2020-05-28] MEDS: Morphine 4 MG/ML Syringe IVPUSH ONE (01:31)
[2020-05-28 01:46] LABS: CHLORIDE,CL 107 mmol/L (98-107); SODIUM,NA 140 mmol/L (136-145)
[2020-05-28 01:59] VITALS: BP 129/58; PULSE 80
[2020-05-28] MEDS: Iopamidol 612 MG/ML 100 ML Bottle IVPUSH ONE (02:06)
[2020-05-28] MEDS: Sodium Chloride 0.9% 1,000 ML IV ONE (02:30)
--- NOTE | 2020-05-28 02:54 | EDM.PDOC ---
ED HPI GENERAL MEDICAL PROBLEM - General Chief Complaint: Abdominal Pain Stated Complaint: Abd pain Time Seen by Provider: 05/28/20 01:25 Source of Information: Reports: Patient History Limitations: Reports: No Limitations - History of Present Illness INITIAL COMMENTS - FREE TEXT/NARRATIVE: Pt with left sided abdominal pain extending to left flank No fever No N/V/D Had gastric bypass surgery 2 weeks ago Has been doing well post-op No chest pain Onset: Today, Gradual Duration: Getting Worse, Intermittent Location: Reports: Abdomen Left Abdominal Pain Score (Numeric/FACES): 10 - Related Data Allergies Allergy/AdvReac Type Severity Reaction Status Date / Time Corticosteroids Allergy Other Verified 05/28/20 02:20 (Glucocorticoids) nickel Allergy Rash Verified 05/28/20 02:20 NSAIDS (Non-Steroidal Allergy Other Verified 05/28/20 02:20 Anti-Inflamma Penicillins Allergy Hives Verified 05/28/20 02:20 Home Meds: Home Meds Folic Acid 1 mg PO BEDTIME 08/11/18 [History] Adalimumab [Humira] 40 mg SQ ASDIRECTED 01/06/20 [History] Albuterol [Ventolin HFA] 1 - 2 puff INH Q4HR PRN 01/06/20 [History] DULoxetine [Cymbalta] 20 mg PO DAILY 01/06/20 [History] hydrOXYzine HCL [Hydroxyzine HCl] 25 mg PO BID PRN 01/06/20 [History] metHOTREXate sodium [Methotrexate] 20 mg SQ ASDIRECTED 01/06/20 [History] Acetaminophen 650 mg PO Q6HR PRN 05/28/20 [History] Cholecalciferol (Vitamin D3) [Vitamin D] 50,000 unit PO WEEKLY 05/28/20 [History] Metoprolol Tartrate 12.5 mg PO BID 05/28/20 [History] Non-Formulary Medication [NF Drug] 1 tab PO DAILY 05/28/20 [History] Omeprazole 20 mg PO DAILY 05/28/20 [History] Ondansetron [Zofran ODT] 4 mg PO Q6H PRN 05/28/20 [History] Past Medical History HEENT History: Reports: Allergic Rhinitis, Impaired Vision Other HEENT History: Sseasonal allergies. Hx. of recurrent tonsilitis as a child. She wears glasses and soft contact lenses. Cardiovascular History: Reports: Hypertension, [place], Other (See Below) Other Cardiovascular History: hx of elevated troponin and MN in August 2019, normal echo at time of incident Respiratory History: Reports: Intubation, Previous, Sleep Apnea Other Respiratory History: She was compliant with her CPAP machine. Gastrointestinal History: Reports: Other (See Below) Other Gastrointestinal History: LFT elevation secondary to either fatty liver and/or methotrexate therapy. Genitourinary History: Reports: None PEDIATRIC AUDIOLOGIST History: Reports: , Spontaneous Other PEDIATRIC AUDIOLOGIST History: Total number of pregnacy is 7 with Miscarriages x 2. Her first miscarriage due to tear in wall of placenta/placental abruption with SAB at 17 weeks with D&C thereafter after delivery. Second miscarriage unknown cause found 20 weeks with delivery and subsequent D&C. 4 live births with one of those being adopted out. 1 secondary to breech presentation was at full-term with subsequent follow-up scheduled secondary to previous C- section as above. LMP on 08/01/18. Musculoskeletal History: Reports: Arthritis, Fracture, Osteoarthritis, RA Other Musculoskeletal History: Recurrent bilateral ankle sprains. Right ankle medial malleolar chip fracture on 12/27/10. Rheumatoid arthritis currently under methotrexate. Neurological History: Reports: None Psychiatric History: Reports: Anxiety, Depression Endocrine/Metabolic History: Reports: Obesity/BMI 30+ Hematologic History: Reports: Anemia, Iron Deficiency, Other (See Below) Other Hematologic History: Iron deficiency anemia during pregnancies. Immunologic History: Reports: Immunosuppression, Other (See Below) Other Immunologic History: Note current methotrexate and Xelgance therapy. Oncologic (Cancer) History: Reports: None Dermatologic History: Reports: None - Infectious Disease History Infectious Disease History: Reports: Chicken Pox, Mononucleosis - Past Surgical History Head Surgeries/Procedures: Reports: None HEENT Surgical History: Reports: Oral Surgery, Other (See Below) Other HEENT Surgeries/Procedures: Lyons teeth extraction 4 at age 17. Subsequent teeth extractions4 with subsequent reconstructive maxillary and mandibular jaw surgery. Cardiovascular Surgical History: Reports: None Respiratory Surgical History: Reports: None GI Surgical History: Reports: Hernia, Abdominal, Other (See Below) Other GI Surgeries/Procedures: Abdominal ventral hernia repair on 03/27/18. Female Surgical History: Reports: Section, D&C, Dilitation & Evacuation, Other (See Below) Other Female Surgeries/Procedures: C-sections and D&Cs as above. Bilateral salpingectomies rather than tubal ligations at age 27 Endocrine Surgical History: Reports: None Neurological Surgical History: Reports: None Musculoskeletal Surgical History: Reports: None Oncologic Surgical History: Reports: None Dermatological Surgical History: Reports: None - Past Imaging History Past Imaging History: Reports: CAT Scan (CT of the wrist on 01/10/18.), Sleep Study (At age 23.), Ultrasound (OB ultrasounds. Complete abdominal ultrasound on 02/29/12. Right upper quadrant ultrasound on 01/28/11.). Denies: Mammogram Social & Family History - Family History Cardiac: Reports: Hypertension, [place] - Tobacco Use Tobacco Use Status *Q: Former Tobacco User Years of Tobacco use: 4 Used Tobacco, but Quit: Yes Month/Year Tobacco Last Used: 05/2013 - Caffeine Use Caffeine Use: Reports: None Caffeine Use Comment: One cup per day of coffee. Patient usually has 1 Mt. dew per week. - Recreational Drug Use Recreational Drug Use: No - Sexual History Sexual History: Reports: Sexually Active, Single Partner. Denies: Oral Sex - Living Situation & Occupation Living situation: Reports: (2013. One child prior to marriage, who was adopted out. 4 children with current ), with Family Occupation: Employed ([employer] at [employer]) ED ROS GENERAL - Review of Systems Review Of Systems: See Below Constitutional: Reports: No Symptoms HEENT: Reports: No Symptoms Respiratory: Reports: No Symptoms Cardiovascular: Reports: No Symptoms GI/Abdominal: Reports: Abdominal Pain : Reports: No Symptoms Musculoskeletal: Reports: No Symptoms Skin: Reports: No Symptoms Neurological: Reports: No Symptoms ED EXAM, GI/ABD - Physical Exam Exam: See Below General Appearance: Alert, WD/WN, Mild Distress Throat/Mouth: Normal Oropharynx Neck: Supple Respiratory/Chest: Lungs Clear Cardiovascular: Regular Rate, Rhythm GI/Abdominal Exam: Soft, Tender, Other (Tender diffusely Port sites clean and dry) Extremities: Normal Inspection, Non-Tender, No Pedal Edema Course - Vital Signs Last Recorded V/S: Last Vital Signs Temp 98.4 F 05/28/20 01:10 Pulse 80 05/28/20 01:10 Resp 18 05/28/20 01:10 BP 129/58 L 05/28/20 01:10 Pulse Ox 98 01/27/21 01:10 - Orders/Labs/Meds Orders: Active Orders 24 hr Category Date Time Status Abdomen Pelvis w Cont [CT] Stat Exams 05/28/20 01:13 Ordered Labs: Laboratory Tests 05/28/20 05/28/20 05/28/20 Range/Units 01:20 01:20 01:20 WBC 6.9 (4.0-10.2) K/uL RBC 4.81 (3.77-5.09) M/uL Hgb 13.4 (11.7-15.5) g/dL Hct 39.9 (34.0-46.0) % MCV 83.0 L D (84.0-98.0) fL MCH 27.9 L (28.2-33.3) pg MCHC 33.6 (31.7-36.0) g/dL RDW 14.0 (11.2-14.1) % Plt Count 284 (150-350) K/uL Neut % (Auto) 51.4 (45.0-80.0) % Lymph % (Auto) 38.9 (10.0-50.0) % [place] % (Auto) 7.5 (2.0-14.0) % Eos % (Auto) 1.9 (0.0-5.0) % Baso % (Auto) 0.3 (0.0-2.0) % Neut # (Auto) 3.55 (1.40-7.00) K/uL Lymph # (Auto) 2.69 (0.50-3.50) K/uL [place] # (Auto) 0.52 (0.00-1.00) K/uL Eos # (Auto) 0.13 (0.00-0.50) K/uL Baso # (Auto) 0.02 (0.00-0.20) K/uL Sodium 140 (136-145) mmol/L Potassium 3.8 (3.5-5.1) mmol/L Chloride 107 (98-107) mmol/L Carbon Dioxide 22.4 (21.0-32.0) mmol/L BUN 17 (7-18) mg/dL Creatinine 0.68 (0.51-1.17) mg/dL Est Cr Clr Drug Dosing TNP Estimated GFR (MDRD) > 60 mL/min Glucose 93 (74-106) mg/dL Lactic Acid 0.6 (0.4-2.0) mmol/L Calcium 9.0 (8.5-10.1) mg/dL Total Bilirubin 0.8 (0.2-1.0) mg/dL AST 18 (15-37) U/L ALT 41 (12-78) U/L Alkaline Phosphatase 85 (46-116) IU/L Total Protein 7.6 (6.4-8.2) g/dL Albumin 4.0 (3.4-5.0) g/dL Meds: Medications Discontinued Medications Generic Name Dose Route Start Last Admin Trade Name Freq PRN Reason Stop Dose Admin Sodium Chloride 1,000 mls @ 999 mls/hr 05/28/20 01:14 05/28/20 02:30 Normal Saline IV 05/28/20 02:14 999 mls/hr .BOLUS ONE Administration Iopamidol 100 ml 05/28/20 01:27 05/28/20 02:06 Isovue-300 (61%) IVPUSH 05/28/20 01:28 100 ml ONETIME ONE Administration Morphine Sulfate 4 mg 05/28/20 01:15 05/28/20 01:31 Morphine IVPUSH 05/28/20 01:16 4 mg ONETIME ONE Administration Ondansetron HCl 8 mg 05/28/20 01:15 05/28/20 01:30 Zofran IVPUSH 05/28/20 01:16 8 mg ONETIME ONE Administration - Re-Assessments/Exams Free Text/Narrative Re-Assessment/Exam: 05/28/20 02:[address] No acute finings per radiologist Pt given 1 L NS, Zofran 8 mg IV and Morphine 4 mg IV in ER with improved sympt oms Departure - Departure Time of Disposition: 03:00 Disposition: Home, Self-Care 01 Clinical Impression: Abdominal pain Qualifiers: Abdominal location: unspecified location Qualified Code(s): R10.9 - Unspecified abdominal pain - Discharge Information *PRESCRIPTION DRUG MONITORING PROGRAM REVIEWED*: Not Applicable *COPY OF PRESCRIPTION DRUG MONITORING REPORT IN PATIENT HERI: Not Applicable Instructions: Abdominal Pain, Adult Referrals: Tianna Sena PA-C [Primary Care Provider] - Additional Instructions: Rx Tylenol #3 One pill every 6 hours for pain Follow up in clinic Sepsis Event Note (ED) - Evaluation Sepsis Screening Result: No Definite Risk - Focused Exam Vital Signs: Vital Signs Temp Pulse Resp BP Pulse Ox 05/28/20 01:10 98.4 F 80 18 129/58 L 98 - My Orders Last 24 Hours: My Active Orders 05/28/20 01:13 Abdomen Pelvis w Cont [CT] Stat - Assessment/Plan Last 24 Hours: My Active Orders 05/28/20 01:13 Abdomen Pelvis w Cont [CT] Stat
== END 2020-05-28 03:10 | disposition home or self-care (01) ==
LOC: LL.ED 01:07
DX: R10.9 Unspecified abdominal pain (principal); I10 Essential (primary) hypertension; I25.2 Old myocardial infarction; E66.9 Obesity, unspecified; Z88.0 Allergy status to penicillin; Z88.8 Allergy status to other drugs, medicaments and biological substances; Z87.891 Personal history of nicotine dependence; Z79.899 Other long term (current) drug therapy
CPT/HCPCS: 36415; 74177; 80053; 83605; 85025; 96374; 96375; 99283; 99284-25; J2270; J2405; J7030; Q9967

== ENCOUNTER 2020-08-24 15:49 | Observation (INO) | payer BC ==
--- NOTE | 2020-08-24 16:07 | EDM.PDOC ---
ED HPI GENERAL MEDICAL PROBLEM - General Chief Complaint: Abdominal Pain Stated Complaint: abdominal pain Time Seen by Provider: 08/24/20 16:00 Source of Information: Reports: Patient, Family (), Old Records ([facility] chart/EMR) History Limitations: Reports: No Limitations - History of Present Illness INITIAL COMMENTS - FREE TEXT/NARRATIVE: The patient was brought to the emergency room via private automobile by her for evaluation of 7/10 sharp right lower quadrant abdominal pain with symptoms starting at about 3 PM this afternoon. She has not taken any medications for her symptoms to this point and did have a normal bowel movement earlier this morning. No recent history of other abdominal pain, heartburn, nausea, diarrhea, melena, gross hematochezia, or any food intolerance, including fatty foods, etc.. She denies any gross hematuria, colic, or other UTI symptoms. LMP was normal about 2 weeks ago with no previous history of mitte lschmerz. Her last oral intake was at about 1 PM this afternoon with no recent history of anorexia. The patient denies any chest pain/pressure, heart flutter, dizziness, orthostasis, orthopnea, diaphoresis, paresthesias, recent decreased exercise tolerance, or any other anginal-type symptoms. The patient also denies any recent fever, cough, wheezing, dyspnea, etc.. She denies any known exposure to infection, food poisoning, etc. Onset: Today, Sudden Onset Date: 08/24/20 Duration: Constant, Getting Worse Location: Reports: Abdomen. Denies: Head, Face, Neck, Chest, Back, Pelvis, Upper Extremity, Left, Upper Extremity, Right Quality: Reports: Sharp, Stabbing Severity: Moderate Improves with: Reports: None Worsens with: Reports: None Context: Reports: Other (As above). Denies: Sick Contact, Trauma Associated Symptoms: Reports: No Other Symptoms. Denies: Confusion, Chest Pain, Cough, Diaphoresis, Fever/Chills, Headaches, Loss of Appetite, Malaise, Nausea/Vomiting, Rash, Shortness of Breath, Syncope, Weakness Treatments APRON MAN: Reports: Other (see below) (None) RLQ Pain Score (Numeric/FACES): 7 - Related Data Allergies Allergy/AdvReac Type Severity Reaction Status Date / Time Corticosteroids Allergy Other Verified 08/24/20 15:54 (Glucocorticoids) nickel Allergy Rash Verified 08/24/20 15:54 NSAIDS (Non-Steroidal Allergy Other Verified 08/24/20 15:54 Anti-Inflamma Penicillins Allergy Hives Verified 08/24/20 15:54 Home Meds: Home Meds Folic Acid 1 mg PO BEDTIME 08/11/18 [History] Adalimumab [Humira] 40 mg SQ ASDIRECTED 01/06/20 [History] Albuterol [Ventolin HFA] 1 - 2 puff INH Q4HR PRN 01/06/20 [History] DULoxetine [Cymbalta] 20 mg PO DAILY 01/06/20 [History] hydrOXYzine HCL [Hydroxyzine HCl] 25 mg PO BID PRN 01/06/20 [History] metHOTREXate sodium [Methotrexate] 20 mg SQ ASDIRECTED 01/06/20 [History] Acetaminophen 650 mg PO Q6HR PRN 05/28/20 [History] Cholecalciferol (Vitamin D3) [Vitamin D] 50,000 unit PO WEEKLY 05/28/20 [History] Metoprolol Tartrate 12.5 mg PO BID 05/28/20 [History] Non-Formulary Medication [NF Drug] 1 tab PO DAILY 05/28/20 [History] Omeprazole 20 mg PO DAILY 05/28/20 [History] Ondansetron [Zofran ODT] 4 mg PO Q6H PRN 05/28/20 [History] Past Medical History HEENT History: Reports: Allergic Rhinitis, Impaired Vision. Denies: Cataract, Epistaxis, Glaucoma, Hard of Hearing, Macular Degeneration, Otitis Media, Retinal Detachment, Sinusitis Other HEENT History: Sseasonal allergies. Hx. of recurrent tonsilitis as a child. She wears glasses and soft contact lenses. Cardiovascular History: Reports: CAD, Hypertension, WA, Other (See Below). Denies: Afib, Aneurysm, Arrhythmia, Blood Clots/VTE/DVT, Heart Failure, Heart Murmur, High Cholesterol, PTCA, PVD, Stents, Syncope Other Cardiovascular History: Hx of elevated troponin and possible WA in August 2019 with normal stress echo at time and no history of other intervention, heart catheterization, etc. Respiratory History: Reports: Intubation, Previous, Sleep Apnea. Denies: Asthma, Bronchitis, Recurrent, COPD, Intubation, Difficult, PE, Pneumonia, R ecurrent, Pneumothorax, Pulmonary Fibrosis, TB Other Respiratory History: She was compliant with her CPAP machine. Gastrointestinal History: Reports: Diverticulosis, Other (See Below). Denies: Bowel Obstruction, Celiac Disease, Cholelithiasis, Chronic Constipation, Chronic Diarrhea, Colon Polyp, Fecal Incontinence, Gastritis, GERD, GI Bleed, Hiatal Hernia, Inflammatory Bowel Disease, Irritable Bowel Syndrome, Jaundice, Pancreatitis, PUD Other Gastrointestinal History: LFT elevation secondary to either fatty liver and/or methotrexate therapy. Genitourinary History: Reports: None. Denies: Acute Renal Failure, Chronic Renal Insuffiency, Renal Calculus, Retention, Urinary, STD, Urinary Inconti nence, UTI, Recurrent JOWL TRIMMER History: Reports: , Spontaneous . Denies: Dysfunctional Uterine Bleeding, Endometriosis, Fibroids : 7 Para: 5 Other JOWL TRIMMER History: Miscarriages x 2. Her first miscarriage due to tear in wall of placenta/placental abruption with SAB at 17 weeks with D&C thereafter after delivery. Second miscarriage unknown cause found 20 weeks with delivery and subsequent D&C. 4 live births with one of those being adopted out. C- section 1 secondary to breech presentation was at full-term with subsequent follow-up scheduled secondary to previous as above. History of ovarian cysts without mittelschmerz. Musculoskeletal History: Reports: Arthritis, Fracture, Osteoarthritis, RA. Denies: Back Pain, Chronic, Gout, Neck Pain, Chronic, SLE Other Musculoskeletal History: Recurrent bilateral ankle sprains. Right ankle medial malleolar chip fracture on 12/27/10. Rheumatoid arthritis currently under methotrexate and Humira therapy. Neurological History: Reports: None. Denies: Cerebral Aneurysms, Concussion, CVA, Headaches, Chronic, Head Trauma, Migraines, MS, Neuropathy, Peripheral, Parkinson's, Seizure, TIA, Vertigo Psychiatric History: Reports: Anxiety, Depression. Denies: Abuse, Victim of, ADD, ADHD, Addiction, Alzheimers Disease, Dementia, Psych Hospitalization(s), PTSD, Suicide Attempt Endocrine/Metabolic History: Reports: Obesity/BMI 30+. Denies: Diabetes, Gestational, Diabetes, Type I, Diabetes, Type II, Diabetes Mellitus, Type 3c, Hypothyroidism, IDDM Hematologic History: Reports: Anemia, Iron Deficiency, Other (See Below) Other Hematologic History: Iron deficiency anemia during pregnancies. Immunologic History: Reports: Immunosuppression, Other (See Below). Denies: AIDS, HIV, SLE Other Immunologic History: Note current methotrexate and Humira therapy. Oncologic (Cancer) History: Reports: None. Denies: Basal Cell Carcinoma, Breast, Cervix, Colon, Hodgkin's Lymphoma, Leukemia, Lymphoma, Malignant Melanoma, Non-Hodgkin's Lymphoma, Ovarian, Squamous Cell Carcinoma, Uterine Dermatologic History: Reports: None. Denies: Eczema, Psoriasis - Infectious Disease History Infectious Disease History: Reports: Chicken Pox, Mononucleosis, Novel Coronavirus (03/02/2020 with the patient receiving both of her Moderna immunizations last in the beginning of June 2020). Denies: C-Difficile, Measles, Meningitis, MRSA, Mumps, Pertussis (Whooping Cough), Rheumatic Fever, Rubella, Scarlet Fever, Shingles, TB, VRE - Past Surgical History Head Surgeries/Procedures: Reports: None HEENT Surgical History: Reports: Oral Surgery, Other (See Below). Denies: Adenoidectomy, Cataract Surgery, Eye Surgery, Laser Surgery, LASIK, Myringotomy w Tube(s), Naso-Sinus Surgery, Tonsillectomy Other HEENT Surgeries/Procedures: [place] teeth extraction 4 at age 17. Subsequent teeth extractions4 with subsequent reconstructive maxillary and mandibular jaw surgery. Cardiovascular Surgical History: Reports: None. Denies: Varicose Respiratory Surgical History: Reports: None. Denies: Thoracentesis GI Surgical History: Reports: Bariatric Procedure, Hernia, Abdominal, Other (See Below). Denies: Appendectomy, Cholecystectomy, Colonoscopy, EGD, Hernia, Inguinal, Hernia Repair/Other, Polypectomy Other GI Surgeries/Procedures: Martinez-en-Y on 05/16/2020. Abdominal ventral hernia repair on 03/27/18. Female Surgical History: Reports: Section, D&C, Dilitation & Evacuation, Other (See Below). Denies: Tubal Ligation Other Female Surgeries/Procedures: C-sections and D&Cs as above. Bilateral salpingectomies rather than tubal ligations at age 27 Endocrine Surgical History: Reports: None. Denies: Thyroid Biopsy Neurological Surgical History: Reports: None. Denies: C-Spine, Discectomy, Laminectomy, Lumbar Spine, Sacral Spine, Spinal Fusion, Thoracic Spine, Vertebroplasty Musculoskeletal Surgical History: Reports: None. Denies: Arthroscopic Procedure, Carpal Tunnel, Ganglion Cyst, Joint Replacement, ORIF, Shoulder Surgery Oncologic Surgical History: Reports: None Dermatological Surgical History: Reports: None - Past Imaging History Past Imaging History: Reports: CAT Scan (Abdomen and pelvis on 05/28/2020. Wrist on 01/10/18.), Sleep Study (At age 23.), Ultrasound (OB ultrasounds. Complete abdominal ultrasound on 02/29/12. Right upper quadrant ultrasound on 01/28/11.). Denies: Mammogram Social & Family History - Family History HEENT: Reports: Macular Degeneration, Other (See Below). Denies: Retinal Detachment Other HEENT Family History: Paternal grandmother with macular degeneration. Cardiac: Reports: Arrhythmia, CAD, Cardiomyopathy, Heart Failure, Hypertension, WA, Pacemaker, Other (See Below). Denies: Afib, Aneurysm, Blood Clots/VTE/DVT, Bypass, High Cholesterol, PVD/COD, Syncope Other Cardiac Family History: Paternal aunt with WA and status post CABG x3 in her 50s. Father with fatal WA at age 60 with previous history of CHF. Hypertension in parents and multiple paternal family members paternal grandmother with CHF. Paternal aunt with unknown type of arrhythmia requiring pacemaker. Respiratory: Reports: COPD, Other (See Below). Denies: Asthma, PE, Pneumothorax, Sleep Apnea Other Respiratory Family Hisory: COPD in father and paternal grandmother with both parties using tobacco. GI: Reports: PUD, Other (See Below). Denies: Celiac Disease, Cholelithiasis, Colon Polyps, Diverticulitis, GERD, GI bleed, Inflammatory Bowel Disease, Irritable Bowel Syndrome Other GI Family History: Father with peptic ulcer disease. : Reports: Renal Calculus, Other (See Below). Denies: Renal Disease/Insufficiency Other Family History: Father with recurrent urolithiasis. OBGYN: Reports: None. Denies: Dysfunctional uterine bleeding, Endometriosis, Fibroids, Recurrent Spontaneous Musculoskeletal: Reports: Arthritis, Osteoarthritis, Other (See Below). Denies: Gout, RA, SLE Other Musculoskeletal Family History: Father with osteoarthritis. Neurological: Reports: Alzheimers Disease, CVA, Dementia, MS, Seizure, Other (See Below). Denies: Cerebral Aneurysms, Migraines, Parkinson's, TIA Other Neurological Family History: Mother with a later adult grand mall seizures. Father with organic brain syndrome. Paternal aunt with MS and additional history of postoperative CVA in her 50s after her CABG as above. Psychiatric: Reports: None. Denies: Abuse, Victim of, ADD, ADHD, Anxiety, Depression, Psych Hospitalization(s), Psychosis, PTSD, Suicide Attempt Endocrine/Metabolic: Reports: Diabetes, type II, IDDM, Other (See Below). Denies: Hypothyroidism Other Endocrine/Metabolic Family History: IDDM in parents, paternal grandmother, maternal aunt x1. Diabetes mellitus in paternal uncle, maternal aunt, and paternal aunts x7. Hematologic: Reports: Anemia, Other (See Below). Denies: SLE Other Hematologic Family History: Mother with iron deficiency anemia. Immunologic: Reports: None. Denies: AIDS, HIV, SLE Dermatologic: Reports: None. Denies: Eczema, Psoriasis Oncologic: Reports: Breast, Skin, Other (See Below). Denies: Cervix, Colon, Hodgkin's Lymphoma, Leukemia, Lung, Lymphoma, Non-Hodgkin's Lymphoma, Ovarian, Uterine Other Oncologic Family History: Father with unknown type of skin cancer. Paternal aunts x2 with breast cancer in their 50s. - Tobacco Use Tobacco Use Status *Q: Former Tobacco User Tobacco Use Within Last Twelve Months: No Years of Tobacco use: 7 Packs/Tins Daily: 0.1 Packs/Tins Daily Comment: 1 pack/week between ages 18 and 25. Used Tobacco, but Quit: Yes Smoking Cessation Information Provided To Patient: No Second Hand Smoke Exposure: Yes Source of Second Hand Smoke Exposure: smokes with discontinuation of previous e-cigarettes. Second Hand Smoke Education Provided: Yes - Caffeine Use Caffeine Use: Reports: None Caffeine Use Comment: One cup per day of coffee. Patient usually has 1 Mt. dew per week. - Alcohol Use Alcohol Use History: Yes Days Per Week of Alcohol Use: 0 Number of Drinks Per Day: 1 Number of Drinks Per Day Comment: Usually mixed drinks about once every 3-4 months. No previous DWIs, problems with alcohol abuse, etc. Total Drinks Per Week: 0 Alcohol Use in Last Twelve Months: Yes Alcohol Use Frequency: Rarely - Recreational Drug Use Recreational Drug Use: No Drug Use in Last 12 Months: No Recreational Drug Type: Denies: Amphetamines (Speed), Cocaine, Heroin, Inhalants (Glues, Solvents, Aerosols), LSD (Acid), Marijuana/Hashish, Methamphetamine, Morphine, Oxycodone - Sexual History Sexual History: Reports: Sexually Active, Single Partner. Denies: Oral Sex - Living Situation & Occupation Living situation: Reports: (2013. One child prior to marriage, who was adopted out. 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 ED EXAM, GI/ABD - Physical Exam Exam: See Below Exam Limited By: No Limitations General Appearance: Alert, WD/WN, No Apparent Distress Eyes: Bilateral: Normal Appearance (No nystagmus. Soft contact lenses), EOMI (PERRLA) Ears: Normal External Exam, Normal Canal, Hearing Grossly Normal, Normal TMs Nose: Normal Inspection, Normal Mucosa, No Blood Throat/Mouth: Normal Inspection, Normal Lips, Normal Teeth, Normal Gums, Normal Oropharynx, Normal Voice, No Airway Compromise. No: Dysphagia, Perioral Cyanosis Head: Atraumatic, Normocephalic. No: Facial Swelling, Facial Tenderness, Sinus Tenderness Neck: Normal Inspection, Supple, Non-Tender, Full Range of Motion. No: Carotid Bruit, Lymphadenopathy (L), Lymphadenopathy (R), Thyromegaly Respiratory/Chest: No Respiratory Distress, Lungs Clear, Normal Breath Sounds, No Accessory Muscle Use, Chest Non-Tender. No: Pleural Rub, Retractions Cardiovascular: Normal Peripheral Pulses, Regular Rate, Rhythm, No Edema, No Gallop, No JVD, No Murmur, No Rub. No: Gallop/S3, Gallop/S4, Friction Rub GI/Abdominal Exam: Normal Bowel Sounds, No Organomegaly, No Distention, No Abnormal Bruit, No Mass, Pelvis Stable, Rebound (Mild), Tender (Moderate right lower quadrant). No: Guarding, Rigid (Female) Exam: Deferred Rectal (Female) Exam: Deferred Back Exam: Normal Inspection, Full Range of Motion. No: CVA Tenderness (L), CVA Tenderness (R), Muscle Spasm Extremities: Normal Inspection, Normal Range of Motion, Non-Tender, No Pedal Edema, Normal Capillary Refill. No: Freda's Sign Neurological: Alert, Oriented, CN II-XII Intact, Normal Cognition, Normal Gait, No Motor/Sensory Deficits Psychiatric: Normal Affect, Normal Mood Skin Exam: Warm, Dry, Intact, Normal Color, No Rash, Stud(s) (Multiple including right eyebrow, tongue, and right upper lip), Tattoo(s). No: Diaphoretic Lymphatic: No Adenopathy Course - Vital Signs Last Recorded V/S: Last Vital Signs Temp 36.1 C 08/24/20 15:50 Pulse 66 08/24/20 15:50 Resp 20 08/24/20 15:50 BP 142/88 H 08/24/20 15:50 Pulse Ox 99 08/24/20 15:50 Vital Signs - 24 hr 08/24/20 15:50 Temperature [ 36.1 C Temporal] Pulse, 66 Peripheral [ Right Pulse Oximetry] Respiratory 20 Rate Blood Pressure 142/88 H [Right Upper Arm] O2 Sat by Pulse 99 Oximetry - Orders/Labs/Meds Orders: Active Orders 24 hr Category Date Time Status Peripheral IV Care [RC] . DIRECTED Care 08/24/20 16:13 Active Nothing Per Oral Diet [DIET] Diet 08/24/20 Breakfast Active Abdomen Pelvis w Cont [CT] Stat Exams 08/24/20 16:12 Taken CULTURE URINE [RM] Stat Lab 08/24/20 16:23 Received Sodium Chloride 0.9% [Saline Flush] Med 08/24/20 16:11 Active 10 ml FLUSH ASDIRECTED PRN Isolation [COMM] Routine Oth 08/24/20 16:15 Active Obtain Past Medical Record [OM.PC] Urgent Oth 08/24/20 16:12 Active Peripheral IV Insertion Adult [OM.PC] Stat Oth 08/24/20 16:12 Ordered Resuscitation Status Stat Resus Stat 08/24/20 16:11 Ordered Medication Orders Sodium Chloride (Sodium Chloride 0.9% 10 Ml Syringe) 10 ml FLUSH ASDIRECTED PRN PRN Reason: Keep Vein Open Last Admin: 08/24/20 17:45 Dose: 10 ml Documented by: Admin: 08/24/20 17:19 Dose: 10 ml Documented by: Admin: 08/24/20 17:06 Dose: 10 ml Documented by: Admin: 08/24/20 16:44 Dose: 10 ml Documented by: RICK Labs: Laboratory Tests 08/24/20 08/24/20 08/24/20 Range/Units 16:12 16:15 16:15 WBC 5.7 (4.0-10.2) K/uL RBC 4.85 (3.77-5.09) M/uL Hgb 13.7 (11.7-15.5) g/dL Hct 40.6 (34.0-46.0) % MCV 83.7 L (84.0-98.0) fL MCH 28.2 (28.2-33.3) pg MCHC 33.7 (31.7-36.0) g/dL RDW 14.1 (11.2-14.1) % Plt Count 214 (150-350) K/uL Neut % (Auto) 52.2 (45.0-80.0) % Lymph % (Auto) 37.0 (10.0-50.0) % [place] % (Auto) 9.5 (2.0-14.0) % Eos % (Auto) 1.1 (0.0-5.0) % Baso % (Auto) 0.2 (0.0-2.0) % Neut # (Auto) 2.96 (1.40-7.00) K/uL Lymph # (Auto) 2.10 (0.50-3.50) K/uL [place] # (Auto) 0.54 (0.00-1.00) K/uL Eos # (Auto) 0.06 (0.00-0.50) K/uL Baso # (Auto) 0.01 (0.00-0.20) K/uL PT (9.5-12.0) SEC INR APTT (24.5-32.8) SEC Sodium (136-145) mmol/L Potassium (3.5-5.1) mmol/L Chloride (98-107) mmol/L Carbon Dioxide (21.0-32.0) mmol/L BUN (7-18) mg/dL Creatinine (0.51-1.17) mg/dL Est Cr Clr Drug Dosing mL/min Estimated GFR (MDRD) mL/min Glucose (70-99) mg/dL Lactic Acid (0.4-2.0) mmol/L Uric Acid (2.6-7.2) mg/dL Calcium (8.5-10.1) mg/dL Magnesium (1.8-2.4) mg/dL Total Bilirubin (0.2-1.0) mg/dL AST (15-37) U/L ALT (12-78) U/L Alkaline Phosphatase (46-116) IU/L Total Protein (6.4-8.2) g/dL Albumin (3.4-5.0) g/dL Amylase 33 (25-115) U/L Lipase (73-393) U/L HCG, Qual (NEGATIVE) Specimen Type Urine Color Urine Appearance Urine pH (5.0-9.0) Ur Specific Russell (1.005-1.030) Urine Protein (NEGATIVE) mg/dL Urine Glucose (UA) (NEGATIVE) mg/dL Urine Ketones (NEGATIVE) mg/dL Urine Occult Blood (NEGATIVE) Urine Nitrite (NEGATIVE) Urine Bilirubin (NEGATIVE) Urine Urobilinogen (0.2-1.0) E.U./dL Ur Leukocyte Esterase (NEGATIVE) Urine RBC /HPF Urine WBC /HPF Ur Epithelial Cells /LPF Urine Bacteria (NONE TO FEW) /HPF Urine Mucus (NEGATIVE) /LPF Urine Other SARS-CoV-2 RNA (NARESH) Negative (NEGATIVE) 08/24/20 08/24/20 08/24/20 Range/Units 16:15 16:15 16:15 WBC (4.0-10.2) K/uL RBC (3.77-5.09) M/uL Hgb (11.7-15.5) g/dL Hct (34.0-46.0) % MCV (84.0-98.0) fL MCH (28.2-33.3) pg MCHC (31.7-36.0) g/dL RDW (11.2-14.1) % Plt Count (150-350) K/uL Neut % (Auto) (45.0-80.0) % Lymph % (Auto) (10.0-50.0) % [place] % (Auto) (2.0-14.0) % Eos % (Auto) (0.0-5.0) % Baso % (Auto) (0.0-2.0) % Neut # (Auto) (1.40-7.00) K/uL Lymph # (Auto) (0.50-3.50) K/uL [place] # (Auto) (0.00-1.00) K/uL Eos # (Auto) (0.00-0.50) K/uL Baso # (Auto) (0.00-0.20) K/uL PT 10.5 (9.5-12.0) SEC INR 1.0 APTT 24.8 (24.5-32.8) SEC Sodium 143 (136-145) mmol/L Potassium 3.9 (3.5-5.1) mmol/L Chloride 108 H (98-107) mmol/L Carbon Dioxide 24.5 (21.0-32.0) mmol/L BUN 17 (7-18) mg/dL Creatinine 0.64 (0.51-1.17) mg/dL Est Cr Clr Drug Dosing 143.66 mL/min Estimated GFR (MDRD) > 60 mL/min Glucose 87 (70-99) mg/dL Lactic Acid 0.8 (0.4-2.0) mmol/L Uric Acid 4.3 (2.6-7.2) mg/dL Calcium 8.6 (8.5-10.1) mg/dL Magnesium 1.9 (1.8-2.4) mg/dL Total Bilirubin 1.0 (0.2-1.0) mg/dL AST 21 (15-37) U/L ALT 26 (12-78) U/L Alkaline Phosphatase 101 (46-116) IU/L Total Protein 7.2 (6.4-8.2) g/dL Albumin 3.9 (3.4-5.0) g/dL Amylase (25-115) U/L Lipase 59 L (73-393) U/L HCG, Qual (NEGATIVE) Specimen Type Urine Color Urine Appearance Urine pH (5.0-9.0) Ur Specific Russell (1.005-1.030) Urine Protein (NEGATIVE) mg/dL Urine Glucose (UA) (NEGATIVE) mg/dL Urine Ketones (NEGATIVE) mg/dL Urine Occult Blood (NEGATIVE) Urine Nitrite (NEGATIVE) Urine Bilirubin (NEGATIVE) Urine Urobilinogen (0.2-1.0) E.U./dL Ur Leukocyte Esterase (NEGATIVE) Urine RBC /HPF Urine WBC /HPF Ur Epithelial Cells /LPF Urine Bacteria (NONE TO FEW) /HPF Urine Mucus (NEGATIVE) /LPF Urine Other SARS-CoV-2 RNA (NARESH) (NEGATIVE) 08/24/20 08/24/20 Range/Units 16:15 16:23 WBC (4.0-10.2) K/uL RBC (3.77-5.09) M/uL Hgb (11.7-15.5) g/dL Hct (34.0-46.0) % MCV (84.0-98.0) fL MCH (28.2-33.3) pg MCHC (31.7-36.0) g/dL RDW (11.2-14.1) % Plt Count (150-350) K/uL Neut % (Auto) (45.0-80.0) % Lymph % (Auto) (10.0-50.0) % [place] % (Auto) (2.0-14.0) % Eos % (Auto) (0.0-5.0) % Baso % (Auto) (0.0-2.0) % Neut # (Auto) (1.40-7.00) K/uL Lymph # (Auto) (0.50-3.50) K/uL [place] # (Auto) (0.00-1.00) K/uL Eos # (Auto) (0.00-0.50) K/uL Baso # (Auto) (0.00-0.20) K/uL PT (9.5-12.0) SEC INR APTT (24.5-32.8) SEC Sodium (136-145) mmol/L Potassium (3.5-5.1) mmol/L Chloride (98-107) mmol/L Carbon Dioxide (21.0-32.0) mmol/L BUN (7-18) mg/dL Creatinine (0.51-1.17) mg/dL Est Cr Clr Drug Dosing mL/min Estimated GFR (MDRD) mL/min Glucose (70-99) mg/dL Lactic Acid (0.4-2.0) mmol/L Uric Acid (2.6-7.2) mg/dL Calcium (8.5-10.1) mg/dL Magnesium (1.8-2.4) mg/dL Total Bilirubin (0.2-1.0) mg/dL AST (15-37) U/L ALT (12-78) U/L Alkaline Phosphatase (46-116) IU/L Total Protein (6.4-8.2) g/dL Albumin (3.4-5.0) g/dL Amylase (25-115) U/L Lipase (73-393) U/L HCG, Qual Negative (NEGATIVE) Specimen Type Urinvoid Urine Color Yellow Urine Appearance Slightly cloudy Urine pH 7.0 (5.0-9.0) Ur Specific Russell 1.025 (1.005-1.030) Urine Protein Negative (NEGATIVE) mg/dL Urine Glucose (UA) Negative (NEGATIVE) mg/dL Urine Ketones Trace H (NEGATIVE) mg/dL Urine Occult Blood Trace-intact H (NEGATIVE) Urine Nitrite Negative (NEGATIVE) Urine Bilirubin Negative (NEGATIVE) Urine Urobilinogen 2.0 H (0.2-1.0) E.U./dL Ur Leukocyte Esterase Negative (NEGATIVE) Urine RBC 0-5 /HPF Urine WBC 5-10 H /HPF Ur Epithelial Cells Many H /LPF Urine Bacteria Moderate H (NONE TO FEW) /HPF Urine Mucus Moderate H (NEGATIVE) /LPF Urine Other SARS-CoV-2 RNA (NARESH) (NEGATIVE) Meds: Medications Generic Name Dose Route Start Last Admin Trade Name Bela PRN Reason Stop Dose Admin Sodium Chloride 10 ml 08/24/20 16:11 08/24/20 17:45 Sodium Chloride 0.9% 10 Ml Syringe FLUSH 10 ml ASDIRECTED PRN Administration Keep Vein Open Discontinued Medications Generic Name Dose Route Start Last Admin Trade Name Bela PRN Reason Stop Dose Admin Famotidine 40 mg 08/24/20 16:11 08/24/20 16:29 Famotidine 20 Mg/2 Ml Sdv IVPUSH 08/24/20 16:12 40 mg ONETIME ONE Administration Hydromorphone HCl 1 mg 08/24/20 17:28 08/24/20 17:32 Hydromorphone 1 Mg/Ml Syringe IVPUSH 08/24/20 17:29 1 mg ONETIME ONE Administration Lactated Ringer's 1,000 mls @ 999 mls/hr 08/24/20 16:11 08/24/20 16:46 Ringers, Lactated IV 08/24/20 17:11 999 mls/hr .BOLUS ONE Administration Metronidazole 500 mg/ Premix 100 mls @ 100 mls/hr 08/24/20 16:11 08/24/20 16:45 IV 08/24/20 17:10 100 mls/hr ONETIME ONE Administration Ciprofloxacin/Dextrose 200 mg/ 100 mls @ 100 mls/hr 08/24/20 16:11 08/24/20 16:30 Premix IV 08/24/20 17:10 100 mls/hr ONETIME ONE Administration Iopamidol 100 ml 08/24/20 16:20 08/24/20 17:15 Iopamidol 612 Mg/Ml 100 Ml Bottle IVPUSH 08/24/20 16:21 100 ml ONETIME STA Administration Ondansetron HCl 4 mg 08/24/20 16:11 08/24/20 16:29 Ondansetron 4 Mg/2 Ml Sdv IVPUSH 08/24/20 16:12 4 mg ONETIME ONE Administration Pantoprazole Sodium 40 mg 08/24/20 16:11 08/24/20 16:29 Pantoprazole 40 Mg Vial IVPUSH 08/24/20 16:12 40 mg ONETIME ONE Administration - Radiology Interpretation Free Text/Narrative:: CT scan of the abdomen and pelvis with IV contrast was normal with no mention of previous mild diverticulosis, etc.. Note status post gastric bypass preliminary verbal report of this evaluation was accidentally called to Dr. Chen. Departure - Departure Time of Disposition: 18:55 Disposition: Refer to Observation Condition: Good Clinical Impression: Mixed anxiety depressive disorder, Tobacco abuse counseling Abdominal pain Qualifiers: Abdominal location: unspecified location Qualified Code(s): R10.9 - Unspecified abdominal pain Hypertension Qualifiers: Hypertension type: essential hypertension Qualified Code(s): I10 - Essential (primary) hypertension Obesity Qualifiers: Obesity type: due to excess calories Obesity classification: adult class 2 (BMI 35 - 39.9) Serious obesity comorbidity presence: without serious comorbidity Body mass index: BMI 39.0-39.9 Qualified Code(s): E66.09 - Other obesity due to excess calories; Z68.39 - Body mass index [BMI] 39.0-39.9, adult Rheumatoid arthritis Qualifiers: Rheumatoid arthritis location: multiple sites Rheumatoid factor presence: without rheumatoid factor Qualified Code(s): M06.09 - Rheumatoid arthritis without rheumatoid factor, multiple sites UTI (urinary tract infection) Qualifiers: Urinary tract infection type: acute cystitis Hematuria presence: without hematuria Qualified Code(s): N30.00 - Acute cystitis without hematuria - Discharge Information *PRESCRIPTION DRUG MONITORING PROGRAM REVIEWED*: Not Applicable *COPY OF PRESCRIPTION DRUG MONITORING REPORT IN PATIENT HERI: Not Applicable Instructions: Steps to Quit Smoking, [id number], Health Risks of Smoking Referrals: Tianna Sena PA-C [Primary Care Provider] - Forms: ED Department Discharge Care Plan Goals: See plan Sepsis Event Note (ED) - Evaluation Sepsis Screening Result: No Definite Risk - Focused Exam Vital Signs: Vital Signs Temp Pulse Resp BP Pulse Ox 08/24/20 15:50 36.1 C 66 20 142/88 H 99 - Problem List & Annotations (1) Abdominal pain SNOMED Code(s): 89026055 Code(s): R10.9 - UNSPECIFIED ABDOMINAL PAIN Status: Acute Priority: High Current Visit: Yes Onset Date: 08/24/20 Annotation/Comment:: CT scan of the abdomen and pelvis results as above were inconclusive with possibility of developing diverticulitis versus symptoms from a ruptured ovarian cyst as in the past, although negative findings as above including no evidence of peritonitis. Note no leukocytosis, lactic acid elevation, fever, etc.. High-dose IV Pepcid and IV Protonix were given as GI prophylaxis. Secondary to suspicion of beginning peritonitis patient was started on IV Cipro and IV Flagyl, which will be continued after placement in observation status.. She was also given a 1 L bolus of lactated Ringer's. Various therapeutic options were discussed with the patient and her with the patient requesting further observation in this facility. Note status post gastric bypass with possibility of symptomatic adhesions. Repeat blood work in the a.m. Patient did need IV Dilaudid for pain control in the emergency room. Qualifiers: Abdominal location: unspecified location Qualified Code(s): R10.9 - Unspecified abdominal pain (2) UTI (urinary tract infection) SNOMED Code(s): 95169727 Code(s): N39.0 - URINARY TRACT INFECTION, SITE NOT SPECIFIED Status: Acute Priority: High Current Visit: Yes Onset Date: 08/24/20 Annotation/Comment:: Possibility of beginning UTI with urine specimen set up for culture and sensitivity. Note initiation of IV Cipro therapy as above. No evidence of hydronephrosis, urolithiasis, etc. by CT scan as above. Note mild ketonuria with normal lactic acid level. Blood cultures were not indicated. Qualifiers: Urinary tract infection type: acute cystitis Hematuria presence: without hematuria Qualified Code(s): N30.00 - Acute cystitis without hematuria (3) Hypertension SNOMED Code(s): 48627909 Code(s): I10 - ESSENTIAL (PRIMARY) HYPERTENSION Status: Chronic Priority: Medium Current Visit: Yes Annotation/Comment:: Blood pressure somewhat elevated in the emergency room. No further treatment indicated. Continue to observe closely by her regular provider. Qualifiers: Hypertension type: essential hypertension Qualified Code(s): I10 - Essential (primary) hypertension (4) Mixed anxiety depressive disorder SNOMED Code(s): 217952270 Code(s): F41.8 - OTHER SPECIFIED ANXIETY DISORDERS Status: Chronic Priority: Medium Current Visit: Yes Annotation/Comment:: Stable by history. Continue to observe closely by regular provider. (5) Obesity SNOMED Code(s): 257183822, 223696576 Code(s): E66.9 - OBESITY, UNSPECIFIED Status: Chronic Priority: Medium Current Visit: Yes Annotation/Comment:: The patient was congratulated about her 53 pound weight loss since her gastric bypass on 05/16/2020. Qualifiers: Obesity type: due to excess calories Obesity classification: adult class 2 (BMI 35 - 39.9) Serious obesity comorbidity presence: without serious comorbidity Body mass index: BMI 39.0-39.9 Qualified Code(s): E66.09 - Other obesity due to excess calories; Z68.39 - Body mass index [BMI] 39.0-39.9, adult (6) Rheumatoid arthritis SNOMED Code(s): 50533655 Code(s): M06.9 - RHEUMATOID ARTHRITIS, UNSPECIFIED Status: Chronic Priority: Medium Current Visit: Yes Annotation/Comment:: Stable by history. Continue close follow-up by her outreach director. Qualifiers: Rheumatoid arthritis location: multiple sites Rheumatoid factor presence: without rheumatoid factor Qualified Code(s): M06.09 - Rheumatoid arthritis without rheumatoid factor, multiple sites (7) Tobacco abuse counseling SNOMED Code(s): 541382157, [id number], 066857234 Code(s): Z71.6 - TOBACCO ABUSE COUNSELING Status: Chronic Priority: Medium Current Visit: Yes Annotation/Comment:: Patient and her were counseled on tobacco smoking and exposure. Tobacco cessation information once again given. - Problem List Review Problem List Initiated/Reviewed/Updated: Yes - My Orders Last 24 Hours: My Active Orders 08/24/20 Breakfast Nothing Per Oral Diet [DIET] 08/24/20 16:11 Sodium Chloride 0.9% [Saline Flush] 10 ml FLUSH ASDIRECTED PRN Resuscitation Status Stat 08/24/20 16:12 Abdomen Pelvis w Cont [CT] Stat Obtain Past Medical Record [OM.PC] Urgent Peripheral IV Insertion Adult [OM.PC] Stat 08/24/20 16:13 Peripheral IV Care [RC] . DIRECTED 08/24/20 16:15 Isolation [COMM] Routine 08/24/20 16:23 CULTURE URINE [RM] Stat - Assessment/Plan Admission H&P: Please use this note as an admission H&P Last 24 Hours: My Active Orders 08/24/20 Breakfast Nothing Per Oral Diet [DIET] 08/24/20 16:11 Sodium Chloride 0.9% [Saline Flush] 10 ml FLUSH ASDIRECTED PRN Resuscitation Status Stat 08/24/20 16:12 Abdomen Pelvis w Cont [CT] Stat Obtain Past Medical Record [OM.PC] Urgent Peripheral IV Insertion Adult [OM.PC] Stat 08/24/20 16:13 Peripheral IV Care [RC] . DIRECTED 08/24/20 16:15 Isolation [COMM] Routine 08/24/20 16:23 CULTURE URINE [RM] Stat Assessment:: As above. Plan: As above. Extensive precautions were given to the patient and her , who is in agreement with the treatment plan. The patient's condition is stable enough for observation status and general supervision.
[2020-08-24] MEDS ORDERED: Pantoprazole 40 MG Vial IVPUSH ONE (16:11)
[2020-08-24] MEDS ORDERED: Ciprofloxacin in D5W 200 MG in Premix Bag 1 BAG IV ONE ×2 (16:11)
[2020-08-24] MEDS ORDERED: Lactated Ringers 1,000 ML IV ONE (16:11)
[2020-08-24] MEDS ORDERED: metroNIDAZOLE/Normal Saline 500 MG in Premix Bag 1 BAG IV ONE (16:11)
[2020-08-24] MEDS ORDERED: Famotidine 20 MG/2 ML SDV IVPUSH ONE (16:11)
[2020-08-24] MEDS ORDERED: Ondansetron 4 MG/2 ML SDV IVPUSH ONE (16:11)
[2020-08-24] MEDS ORDERED: Iopamidol 612 MG/ML 100 ML Bottle IVPUSH STA (16:20)
[2020-08-24] MEDS: Sodium Chloride 0.9% 10 ML Syringe FLUSH PRN ×4 (16:44→17:45)
[2020-08-24 16:56] LABS: CHLORIDE,CL 108 mmol/L (98-107); SODIUM,NA 143 mmol/L (136-145)
[2020-08-24 17:03] LABS: PTT,PARTIAL THROMBOPLSTIN TIME 24.8 SEC (24.5-32.8)
[2020-08-24] MEDS ORDERED: HYDROmorphone 1 MG/ML Syringe IVPUSH ONE (17:28)
[2020-08-24] MEDS ORDERED: hydrOXYzine HCl 25 MG Tab PO PRN (19:03)
[2020-08-24] MEDS ORDERED: Ondansetron 4 MG/2 ML SDV IVPUSH PRN (19:04)
[2020-08-24] MEDS ORDERED: Ketorolac 15 MG/ML SDV IVPUSH PRN (19:07)
[2020-08-24] MEDS ORDERED: HYDROmorphone 0.5 MG/0.5 ML Syringe IVPUSH PRN (19:07)
[2020-08-24] MEDS: Sodium Chloride 0.9% 10 ML Syringe FLUSH SCH (20:06)
[2020-08-24] MEDS: Folic Acid 1 MG Tab PO SCH (20:06)
[2020-08-24] MEDS: Temazepam 15 MG Cap PO PRN (20:07)
[2020-08-25] MEDS: metroNIDAZOLE/Normal Saline 500 MG in Premix Bag 1 BAG IV SCH ×3 (00:06→17:38)
[2020-08-25] MEDS: Sodium Chloride 0.9% 10 ML Syringe FLUSH PRN ×4 (00:06→15:45)
[2020-08-25] MEDS: Pantoprazole 40 MG Vial IVPUSH SCH ×2 (04:03→15:45)
[2020-08-25] MEDS: Ciprofloxacin in D5W 200 MG in Premix Bag 1 BAG IV SCH ×4 (04:05→15:45)
[2020-08-25] MEDS: Famotidine 20 MG/2 ML SDV IVPUSH SCH ×2 (04:05→15:45)
[2020-08-25 08:26] LABS: CHLORIDE,CL 108 mmol/L (98-107); SODIUM,NA 144 mmol/L (136-145)
[2020-08-25] MEDS: DULoxetine 20 MG Cap PO SCH (08:48)
[2020-08-25] MEDS: Sodium Chloride 0.9% 10 ML Syringe FLUSH SCH ×2 (08:49→19:41)
[2020-08-25] MEDS: Metoprolol Tartrate 25 MG Tab PO SCH ×2 (08:51→17:35)
[2020-08-25] MEDS: Acetaminophen 325 MG Tab PO PRN ×2 (08:55→17:38)
[2020-08-25] MEDS: MULTIVITAMIN PO SCH (14:51)
--- NOTE | 2020-08-25 14:51 | PCM.PN ---
- General Info Date of Service: 08/27/20 Admission Dx/Problem (Free Text): 1.Abdominal pain 2. UTI Functional Status: Reports: Pain Controlled, Tolerating Diet, Ambulating, Urinating. Denies: New Symptoms, Incentive Spirometry Pain Score: 7 - Review of Systems General: Reports: No Symptoms. Denies: Fever, Weakness, Fatigue, Malaise, Night Sweats, Appetite (Adequate) HEENT: Reports: No Symptoms. Denies: Dysphasia, Ear Pain, Eye Pain, Headaches, Post Nasal Drip, Sinus Congestion, Sore Throat, Rhinitis, Visual Changes Pulmonary: Reports: No Symptoms. Denies: Shortness of Breath, Pleuritic Chest Pain, Cough, Sputum, Hemoptysis, Wheezing Cardiovascular: Reports: No Symptoms. Denies: Chest Pain, Palpitations, Dyspnea on Exertion, Orthopnea, PND, Edema, Lightheadedness Gastrointestinal: Reports: Abdominal Pain, Constipation (No bowel movement since admission). Denies: Decreased Appetite, Diarrhea, Difficulty Swallowing, Flatus, Hematochezia, Melena, Nausea, Vomiting Genitourinary: Reports: No Symptoms. Denies: Dysuria, Frequency, Burning, Pain, Urgency, Incontinence, Hematuria, Retention, Flank Pain Musculoskeletal: Reports: No Symptoms. Denies: Neck Pain, Shoulder Pain, Arm Pain, Back Pain, Leg Pain Skin: Reports: No Symptoms. Denies: Diaphoresis, Rash Neurological: Reports: No Symptoms. Denies: Confusion, Dizziness, Headache, Numbness, Paresthesia, Tingling, Weakness Psychiatric: Reports: No Symptoms. Denies: Confusion, Depression, Anxiety, Agitation, Cravings, Hallucinations - Patient Data Vitals - Most Recent: Last Vital Signs Temp 36.5 C 08/25/20 12:00 Pulse 57 L 08/25/20 12:00 Resp 16 08/25/20 12:00 BP 126/79 08/25/20 12:00 Pulse Ox 100 08/25/20 12:00 Vital Signs - 24 hr 08/24/20 08/24/20 08/24/20 15:50 19:00 19:04 Temperature [ Axillary] Temperature [ 37.2 C Oral] Temperature [ 36.1 C Temporal] Pulse, Peripheral Pulse, 66 55 L Peripheral [ Right Pulse Oximetry] Respiratory 20 16 Rate Blood Pressure Blood Pressure 142/88 H 135/99 H [Right Upper Arm] O2 Sat by Pulse 99 100 98 Oximetry 08/25/20 08/25/20 08/25/20 00:00 04:00 08:50 Temperature [ Axillary] Temperature [ 36.5 C Oral] Temperature [ 37.0 C 36.4 C Temporal] Pulse, Peripheral Pulse, 43 L 54 L 72 Peripheral [ Right Pulse Oximetry] Respiratory 14 14 16 Rate Blood Pressure Blood Pressure 113/64 129/75 136/85 [Right Upper Arm] O2 Sat by Pulse 99 100 99 Oximetry 08/25/20 08/25/20 08:51 12:00 Temperature [ 36.5 C Axillary] Temperature [ Oral] Temperature [ Temporal] Pulse, 72 Peripheral Pulse, 57 L Peripheral [ Right Pulse Oximetry] Respiratory 16 Rate Blood Pressure 136/85 Blood Pressure 126/79 [Right Upper Arm] O2 Sat by Pulse 100 Oximetry Weight - Most Recent: 125.464 kg I&O - Last 24 Hours: Intake & Output 08/24/20 08/25/20 08/25/20 22:59 06:59 14:59 Intake Total 1890 300 360 Output Total 350 200 100 Balance 1540 100 260 Imaging Impressions - Last 24 Hours: None Lab Results Last 24 Hours: Laboratory Results - last 24 hr 08/24/20 08/24/20 08/24/20 Range/Units 16:12 16:15 16:15 WBC 5.7 (4.0-10.2) K/uL RBC 4.85 (3.77-5.09) M/uL Hgb 13.7 (11.7-15.5) g/dL Hct 40.6 (34.0-46.0) % MCV 83.7 L (84.0-98.0) fL MCH 28.2 (28.2-33.3) pg MCHC 33.7 (31.7-36.0) g/dL RDW 14.1 (11.2-14.1) % Plt Count 214 (150-350) K/uL Neut % (Auto) 52.2 (45.0-80.0) % Lymph % (Auto) 37.0 (10.0-50.0) % Daniels % (Auto) 9.5 (2.0-14.0) % Eos % (Auto) 1.1 (0.0-5.0) % Baso % (Auto) 0.2 (0.0-2.0) % Neut # (Auto) 2.96 (1.40-7.00) K/uL Lymph # (Auto) 2.10 (0.50-3.50) K/uL Daniels # (Auto) 0.54 (0.00-1.00) K/uL Eos # (Auto) 0.06 (0.00-0.50) K/uL Baso # (Auto) 0.01 (0.00-0.20) K/uL PT (9.5-12.0) SEC INR APTT (24.5-32.8) SEC Sodium (136-145) mmol/L Potassium (3.5-5.1) mmol/L Chloride (98-107) mmol/L Carbon Dioxide (21.0-32.0) mmol/L BUN (7-18) mg/dL Creatinine (0.51-1.17) mg/dL Est Cr Clr Drug Dosing mL/min Estimated GFR (MDRD) mL/min Glucose (70-99) mg/dL Lactic Acid (0.4-2.0) mmol/L Uric Acid (2.6-7.2) mg/dL Calcium (8.5-10.1) mg/dL Magnesium (1.8-2.4) mg/dL Total Bilirubin (0.2-1.0) mg/dL AST (15-37) U/L ALT (12-78) U/L Alkaline Phosphatase (46-116) IU/L Total Protein (6.4-8.2) g/dL Albumin (3.4-5.0) g/dL Amylase 33 (25-115) U/L Lipase (73-393) U/L HCG, Qual (NEGATIVE) Specimen Type Urine Color Urine Appearance Urine pH (5.0-9.0) Ur Specific [place] (1.005-1.030) Urine Protein (NEGATIVE) mg/dL Urine Glucose (UA) (NEGATIVE) mg/dL Urine Ketones (NEGATIVE) mg/dL Urine Occult Blood (NEGATIVE) Urine Nitrite (NEGATIVE) Urine Bilirubin (NEGATIVE) Urine Urobilinogen (0.2-1.0) E.U./dL Ur Leukocyte Esterase (NEGATIVE) Urine RBC /HPF Urine WBC /HPF Ur Epithelial Cells /LPF Urine Bacteria (NONE TO FEW) /HPF Urine Mucus (NEGATIVE) /LPF Urine Other SARS-CoV-2 RNA (NARESH) Negative (NEGATIVE) 08/24/20 08/24/20 08/24/20 Range/Units 16:15 16:15 16:15 WBC (4.0-10.2) K/uL RBC (3.77-5.09) M/uL Hgb (11.7-15.5) g/dL Hct (34.0-46.0) % MCV (84.0-98.0) fL MCH (28.2-33.3) pg MCHC (31.7-36.0) g/dL RDW (11.2-14.1) % Plt Count (150-350) K/uL Neut % (Auto) (45.0-80.0) % Lymph % (Auto) (10.0-50.0) % Daniels % (Auto) (2.0-14.0) % Eos % (Auto) (0.0-5.0) % Baso % (Auto) (0.0-2.0) % Neut # (Auto) (1.40-7.00) K/uL Lymph # (Auto) (0.50-3.50) K/uL Daniels # (Auto) (0.00-1.00) K/uL Eos # (Auto) (0.00-0.50) K/uL Baso # (Auto) (0.00-0.20) K/uL PT 10.5 (9.5-12.0) SEC INR 1.0 APTT 24.8 (24.5-32.8) SEC Sodium 143 (136-145) mmol/L Potassium 3.9 (3.5-5.1) mmol/L Chloride 108 H (98-107) mmol/L Carbon Dioxide 24.5 (21.0-32.0) mmol/L BUN 17 (7-18) mg/dL Creatinine 0.64 (0.51-1.17) mg/dL Est Cr Clr Drug Dosing 143.66 mL/min Estimated GFR (MDRD) > 60 mL/min Glucose 87 (70-99) mg/dL Lactic Acid 0.8 (0.4-2.0) mmol/L Uric Acid 4.3 (2.6-7.2) mg/dL Calcium 8.6 (8.5-10.1) mg/dL Magnesium 1.9 (1.8-2.4) mg/dL Total Bilirubin 1.0 (0.2-1.0) mg/dL AST 21 (15-37) U/L ALT 26 (12-78) U/L Alkaline Phosphatase 101 (46-116) IU/L Total Protein 7.2 (6.4-8.2) g/dL Albumin 3.9 (3.4-5.0) g/dL Amylase (25-115) U/L Lipase 59 L (73-393) U/L HCG, Qual (NEGATIVE) Specimen Type Urine Color Urine Appearance Urine pH (5.0-9.0) Ur Specific [place] (1.005-1.030) Urine Protein (NEGATIVE) mg/dL Urine Glucose (UA) (NEGATIVE) mg/dL Urine Ketones (NEGATIVE) mg/dL Urine Occult Blood (NEGATIVE) Urine Nitrite (NEGATIVE) Urine Bilirubin (NEGATIVE) Urine Urobilinogen (0.2-1.0) E.U./dL Ur Leukocyte Esterase (NEGATIVE) Urine RBC /HPF Urine WBC /HPF Ur Epithelial Cells /LPF Urine Bacteria (NONE TO FEW) /HPF Urine Mucus (NEGATIVE) /LPF Urine Other SARS-CoV-2 RNA (NARESH) (NEGATIVE) 08/24/20 08/24/20 08/25/20 Range/Units 16:15 16:23 07:17 WBC 4.1 (4.0-10.2) K/uL RBC 4.25 (3.77-5.09) M/uL Hgb 12.1 D (11.7-15.5) g/dL Hct 35.9 (34.0-46.0) % MCV 84.5 (84.0-98.0) fL MCH 28.5 (28.2-33.3) pg MCHC 33.7 (31.7-36.0) g/dL RDW 13.9 (11.2-14.1) % Plt Count 158 (150-350) K/uL Neut % (Auto) 43.7 L (45.0-80.0) % Lymph % (Auto) 43.2 (10.0-50.0) % Daniels % (Auto) 11.7 (2.0-14.0) % Eos % (Auto) 1.2 (0.0-5.0) % Baso % (Auto) 0.2 (0.0-2.0) % Neut # (Auto) 1.79 (1.40-7.00) K/uL Lymph # (Auto) 1.77 (0.50-3.50) K/uL Daniels # (Auto) 0.48 (0.00-1.00) K/uL Eos # (Auto) 0.05 (0.00-0.50) K/uL Baso # (Auto) 0.01 (0.00-0.20) K/uL PT (9.5-12.0) SEC INR APTT (24.5-32.8) SEC Sodium (136-145) mmol/L Potassium (3.5-5.1) mmol/L Chloride (98-107) mmol/L Carbon Dioxide (21.0-32.0) mmol/L BUN (7-18) mg/dL Creatinine (0.51-1.17) mg/dL Est Cr Clr Drug Dosing mL/min Estimated GFR (MDRD) mL/min Glucose (70-99) mg/dL Lactic Acid (0.4-2.0) mmol/L Uric Acid (2.6-7.2) mg/dL Calcium (8.5-10.1) mg/dL Magnesium (1.8-2.4) mg/dL Total Bilirubin (0.2-1.0) mg/dL AST (15-37) U/L ALT (12-78) U/L Alkaline Phosphatase (46-116) IU/L Total Protein (6.4-8.2) g/dL Albumin (3.4-5.0) g/dL Amylase (25-115) U/L Lipase (73-393) U/L HCG, Qual Negative (NEGATIVE) Specimen Type Urinvoid Urine Color Yellow Urine Appearance Slightly cloudy Urine pH 7.0 (5.0-9.0) Ur Specific [place] 1.025 (1.005-1.030) Urine Protein Negative (NEGATIVE) mg/dL Urine Glucose (UA) Negative (NEGATIVE) mg/dL Urine Ketones Trace H (NEGATIVE) mg/dL Urine Occult Blood Trace-intact H (NEGATIVE) Urine Nitrite Negative (NEGATIVE) Urine Bilirubin Negative (NEGATIVE) Urine Urobilinogen 2.0 H (0.2-1.0) E.U./dL Ur Leukocyte Esterase Negative (NEGATIVE) Urine RBC 0-5 /HPF Urine WBC 5-10 H /HPF Ur Epithelial Cells Many H /LPF Urine Bacteria Moderate H (NONE TO FEW) /HPF Urine Mucus Moderate H (NEGATIVE) /LPF Urine Other SARS-CoV-2 RNA (NARESH) (NEGATIVE) 08/25/20 Range/Units 07:17 WBC (4.0-10.2) K/uL RBC (3.77-5.09) M/uL Hgb (11.7-15.5) g/dL Hct (34.0-46.0) % MCV (84.0-98.0) fL MCH (28.2-33.3) pg MCHC (31.7-36.0) g/dL RDW (11.2-14.1) % Plt Count (150-350) K/uL Neut % (Auto) (45.0-80.0) % Lymph % (Auto) (10.0-50.0) % Daniels % (Auto) (2.0-14.0) % Eos % (Auto) (0.0-5.0) % Baso % (Auto) (0.0-2.0) % Neut # (Auto) (1.40-7.00) K/uL Lymph # (Auto) (0.50-3.50) K/uL Daniels # (Auto) (0.00-1.00) K/uL Eos # (Auto) (0.00-0.50) K/uL Baso # (Auto) (0.00-0.20) K/uL PT (9.5-12.0) SEC INR APTT (24.5-32.8) SEC Sodium 144 (136-145) mmol/L Potassium 3.6 (3.5-5.1) mmol/L Chloride 108 H (98-107) mmol/L Carbon Dioxide 26.0 (21.0-32.0) mmol/L BUN 13 (7-18) mg/dL Creatinine 0.70 (0.51-1.17) mg/dL Est Cr Clr Drug Dosing 131.34 mL/min Estimated GFR (MDRD) > 60 mL/min Glucose 81 (70-99) mg/dL Lactic Acid (0.4-2.0) mmol/L Uric Acid (2.6-7.2) mg/dL Calcium 8.4 L (8.5-10.1) mg/dL Magnesium (1.8-2.4) mg/dL Total Bilirubin 1.1 H (0.2-1.0) mg/dL AST 14 L (15-37) U/L ALT 25 (12-78) U/L Alkaline Phosphatase 83 (46-116) IU/L Total Protein 6.0 L (6.4-8.2) g/dL Albumin 3.1 L (3.4-5.0) g/dL Amylase (25-115) U/L Lipase (73-393) U/L HCG, Qual (NEGATIVE) Specimen Type Urine Color Urine Appearance Urine pH (5.0-9.0) Ur Specific [place] (1.005-1.030) Urine Protein (NEGATIVE) mg/dL Urine Glucose (UA) (NEGATIVE) mg/dL Urine Ketones (NEGATIVE) mg/dL Urine Occult Blood (NEGATIVE) Urine Nitrite (NEGATIVE) Urine Bilirubin (NEGATIVE) Urine Urobilinogen (0.2-1.0) E.U./dL Ur Leukocyte Esterase (NEGATIVE) Urine RBC /HPF Urine WBC /HPF Ur Epithelial Cells /LPF Urine Bacteria (NONE TO FEW) /HPF Urine Mucus (NEGATIVE) /LPF Urine Other SARS-CoV-2 RNA (NARESH) (NEGATIVE) Alvin Results Last 24 Hours: Microbiology 08/24/20 16:12 Influenza Type A Antigen Screen - Final Nasal, Unspecified NEGATIVE INFLUENZA A VIRUS AG REFERENCE RANGE: NEGATIVE Influenza Type B Antigen Screen - Final NEGATIVE INFLUENZA B VIRUS AG REFERENCE RANGE: NEGATIVE Med Orders - Current: Current Medications Acetaminophen (Acetaminophen 325 Mg Tab) 650 mg PO Q4H PRN PRN Reason: Pain Last Admin: 08/25/20 08:55 Dose: 650 mg Documented by: Duloxetine HCl (Duloxetine 20 Mg Cap) 20 mg PO DAILY [facility] Last Admin: 08/25/20 08:48 Dose: 20 mg Documented by: Famotidine (Famotidine 20 Mg/2 Ml Sdv) 20 mg IVPUSH Q12H [facility] Last Admin: 08/25/20 04:05 Dose: 20 mg Documented by: Folic Acid (Folic Acid 1 Mg Tab) 1 mg PO BEDTIME [facility] Last Admin: 08/24/20 20:06 Dose: 1 mg Documented by: Hydromorphone HCl (Hydromorphone 0.5 Mg/0.5 Ml Syringe) 0.5 mg IVPUSH Q6H PRN PRN Reason: Pain (severe 7-10) Hydroxyzine HCl (Hydroxyzine Hcl 25 Mg Tab) 25 mg PO BID PRN PRN Reason: Anxiety Metronidazole 500 mg/ Premix 100 mls @ 100 mls/hr IV Q8H [facility] Last Admin: 08/25/20 08:48 Dose: 100 mls/hr Documented by: Ciprofloxacin/Dextrose 200 mg/ (Premix) 100 mls @ 100 mls/hr IV Q12H [facility] Last Admin: 08/25/20 04:05 Dose: 100 mls/hr Documented by: Lactated Ringer's (Ringers, Lactated) 1,000 mls @ 100 mls/hr IV ASDIRECTED [facility] Ketorolac Tromethamine (Ketorolac 15 Mg/Ml Sdv) 15 mg IVPUSH Q6H PRN PRN Reason: Pain (moderate 4-6) Last Admin: 08/25/20 11:50 Dose: 15 mg Documented by: Metoprolol Tartrate (Metoprolol Tartrate 25 Mg Tab) 12.5 mg PO BID [facility] Last Admin: 08/25/20 08:51 Dose: 12.5 mg Documented by: Chewable Multivitamin Gbp Formula 1 EachOwn Med 1 each PO DAILY [facility] Ondansetron HCl (Ondansetron 4 Mg/2 Ml Sdv) 4 mg IVPUSH Q6H PRN PRN Reason: Nausea/Vomiting Pantoprazole Sodium (Pantoprazole 40 Mg Vial) 40 mg IVPUSH Q12H [facility] Last Admin: 08/25/20 04:03 Dose: 40 mg Documented by: Sodium Chloride (Sodium Chloride 0.9% 10 Ml Syringe) 10 ml FLUSH ASDIRECTED PRN PRN Reason: Keep Vein Open Last Admin: 08/25/20 11:51 Dose: 10 ml Documented by: Sodium Chloride (Sodium Chloride 0.9% 10 Ml Syringe) 10 ml FLUSH Q12HR [facility] Last Admin: 08/25/20 08:49 Dose: 10 ml Documented by: Temazepam (Temazepam 15 Mg Cap) 15 mg PO DAILY@2000 PRN PRN Reason: Insomnia Last Admin: 08/24/20 20:07 Dose: 15 mg Documented by: Discontinued Medications Famotidine (Famotidine 20 Mg/2 Ml Sdv) 40 mg IVPUSH ONETIME ONE Stop: 08/24/20 16:12 Last Admin: 08/24/20 16:29 Dose: 40 mg Documented by: Famotidine (Famotidine 20 Mg/2 Ml Sdv) 20 mg IVPUSH Q12H [facility] Hydromorphone HCl (Hydromorphone 1 Mg/Ml Syringe) 1 mg IVPUSH ONETIME ONE Stop: 08/24/20 17:29 Last Admin: 08/24/20 17:32 Dose: 1 mg Documented by: Lactated Ringer's (Ringers, Lactated) 1,000 mls @ 999 mls/hr IV .BOLUS ONE Stop: 08/24/20 17:11 Last Admin: 08/24/20 16:46 Dose: 999 mls/hr Documented by: Metronidazole 500 mg/ Premix 100 mls @ 100 mls/hr IV ONETIME ONE Stop: 08/24/20 17:10 Last Admin: 08/24/20 16:45 Dose: 100 mls/hr Documented by: Ciprofloxacin/Dextrose 200 mg/ (Premix) 100 mls @ 100 mls/hr IV ONETIME ONE Stop: 08/24/20 17:10 Last Admin: 08/24/20 16:30 Dose: 100 mls/hr Documented by: Iopamidol (Iopamidol 612 Mg/Ml 100 Ml Bottle) 100 ml IVPUSH ONETIME STA Stop: 08/24/20 16:21 Last Admin: 08/24/20 17:15 Dose: 100 ml Documented by: Ondansetron HCl (Ondansetron 4 Mg/2 Ml Sdv) 4 mg IVPUSH ONETIME ONE Stop: 08/24/20 16:12 Last Admin: 08/24/20 16:29 Dose: 4 mg Documented by: Pantoprazole Sodium (Pantoprazole 40 Mg Vial) 40 mg IVPUSH ONETIME ONE Stop: 08/24/20 16:12 Last Admin: 08/24/20 16:29 Dose: 40 mg Documented by: - Exam Quality Assessment: DVT Prophylaxis. No: Supplemental Oxygen, Central Line/PICC, Urine Catheter, Skin Breakdown, Restraints General: Alert, Oriented, Cooperative, No Acute Distress HEENT: Pupils Equal, Pupils Reactive, EOMI, Mucous Membr. Moist/[place]. No: Scleral Icterus Neck: Supple, Trachea Midline, No JVD, No Thyromegaly, +2 Carotid Pulse wo Bruit. No: Carotid Bruit Lungs: Clear to Auscultation, Normal Respiratory Effort. No: Rub Cardiovascular: Regular Rate, Regular Rhythm, No Murmurs. No: Rubs GI/Abdominal Exam: Normal Bowel Sounds, No Organomegaly, No Distention, No Abnor mal Bruit, No Mass, Tender (Improved right lower quadrant palpation pain with resolution of previous borderline rebound). No: Guarding, Rigid, Rebound (Female) Exam: Deferred Back Exam: Normal Inspection, Full Range of Motion. No: CVA Tenderness (L), CVA Tenderness (R), Muscle Spasm Extremities: Normal Inspection, Normal Range of Motion, Non-Tender, No Pedal Edema, Normal Capillary Refill. No: Freda's Sign Peripheral Pulses: 2+: Radial (L), Radial (R), Dorsalis Pedis (L), Dorsalis Pedis (R) Skin: Warm, Dry, Intact. No: Ecchymosis Neurological: No New Focal Deficit Psy/Mental Status: Anxious (Mild), Depressed (Borderline). No: Agitated, Hallucinations, Withdrawal Symptoms - Patient Data Lab Results Last 24 hrs: Laboratory Results - last 24 hr 08/24/20 08/24/20 08/24/20 Range/Units 16:12 16:15 16:15 WBC 5.7 (4.0-10.2) K/uL RBC 4.85 (3.77-5.09) M/uL Hgb 13.7 (11.7-15.5) g/dL Hct 40.6 (34.0-46.0) % MCV 83.7 L (84.0-98.0) fL MCH 28.2 (28.2-33.3) pg MCHC 33.7 (31.7-36.0) g/dL RDW 14.1 (11.2-14.1) % Plt Count 214 (150-350) K/uL Neut % (Auto) 52.2 (45.0-80.0) % Lymph % (Auto) 37.0 (10.0-50.0) % Daniels % (Auto) 9.5 (2.0-14.0) % Eos % (Auto) 1.1 (0.0-5.0) % Baso % (Auto) 0.2 (0.0-2.0) % Neut # (Auto) 2.96 (1.40-7.00) K/uL Lymph # (Auto) 2.10 (0.50-3.50) K/uL Daniels # (Auto) 0.54 (0.00-1.00) K/uL Eos # (Auto) 0.06 (0.00-0.50) K/uL Baso # (Auto) 0.01 (0.00-0.20) K/uL PT (9.5-12.0) SEC INR APTT (24.5-32.8) SEC Sodium (136-145) mmol/L Potassium (3.5-5.1) mmol/L Chloride (98-107) mmol/L Carbon Dioxide (21.0-32.0) mmol/L BUN (7-18) mg/dL Creatinine (0.51-1.17) mg/dL Est Cr Clr Drug Dosing mL/min Estimated GFR (MDRD) mL/min Glucose (70-99) mg/dL Lactic Acid (0.4-2.0) mmol/L Uric Acid (2.6-7.2) mg/dL Calcium (8.5-10.1) mg/dL Magnesium (1.8-2.4) mg/dL Total Bilirubin (0.2-1.0) mg/dL AST (15-37) U/L ALT (12-78) U/L Alkaline Phosphatase (46-116) IU/L Total Protein (6.4-8.2) g/dL Albumin (3.4-5.0) g/dL Amylase 33 (25-115) U/L Lipase (73-393) U/L HCG, Qual (NEGATIVE) Specimen Type Urine Color Urine Appearance Urine pH (5.0-9.0) Ur Specific [place] (1.005-1.030) Urine Protein (NEGATIVE) mg/dL Urine Glucose (UA) (NEGATIVE) mg/dL Urine Ketones (NEGATIVE) mg/dL Urine Occult Blood (NEGATIVE) Urine Nitrite (NEGATIVE) Urine Bilirubin (NEGATIVE) Urine Urobilinogen (0.2-1.0) E.U./dL Ur Leukocyte Esterase (NEGATIVE) Urine RBC /HPF Urine WBC /HPF Ur Epithelial Cells /LPF Urine Bacteria (NONE TO FEW) /HPF Urine Mucus (NEGATIVE) /LPF Urine Other SARS-CoV-2 RNA (NARESH) Negative (NEGATIVE) 08/24/20 08/24/20 08/24/20 Range/Units 16:15 16:15 16:15 WBC (4.0-10.2) K/uL RBC (3.77-5.09) M/uL Hgb (11.7-15.5) g/dL Hct (34.0-46.0) % MCV (84.0-98.0) fL MCH (28.2-33.3) pg MCHC (31.7-36.0) g/dL RDW (11.2-14.1) % Plt Count (150-350) K/uL Neut % (Auto) (45.0-80.0) % Lymph % (Auto) (10.0-50.0) % Daniels % (Auto) (2.0-14.0) % Eos % (Auto) (0.0-5.0) % Baso % (Auto) (0.0-2.0) % Neut # (Auto) (1.40-7.00) K/uL Lymph # (Auto) (0.50-3.50) K/uL Daniels # (Auto) (0.00-1.00) K/uL Eos # (Auto) (0.00-0.50) K/uL Baso # (Auto) (0.00-0.20) K/uL PT 10.5 (9.5-12.0) SEC INR 1.0 APTT 24.8 (24.5-32.8) SEC Sodium 143 (136-145) mmol/L Potassium 3.9 (3.5-5.1) mmol/L Chloride 108 H (98-107) mmol/L Carbon Dioxide 24.5 (21.0-32.0) mmol/L BUN 17 (7-18) mg/dL Creatinine 0.64 (0.51-1.17) mg/dL Est Cr Clr Drug Dosing 143.66 mL/min Estimated GFR (MDRD) > 60 mL/min Glucose 87 (70-99) mg/dL Lactic Acid 0.8 (0.4-2.0) mmol/L Uric Acid 4.3 (2.6-7.2) mg/dL Calcium 8.6 (8.5-10.1) mg/dL Magnesium 1.9 (1.8-2.4) mg/dL Total Bilirubin 1.0 (0.2-1.0) mg/dL AST 21 (15-37) U/L ALT 26 (12-78) U/L Alkaline Phosphatase 101 (46-116) IU/L Total Protein 7.2 (6.4-8.2) g/dL Albumin 3.9 (3.4-5.0) g/dL Amylase (25-115) U/L Lipase 59 L (73-393) U/L HCG, Qual (NEGATIVE) Specimen Type Urine Color Urine Appearance Urine pH (5.0-9.0) Ur Specific [place] (1.005-1.030) Urine Protein (NEGATIVE) mg/dL Urine Glucose (UA) (NEGATIVE) mg/dL Urine Ketones (NEGATIVE) mg/dL Urine Occult Blood (NEGATIVE) Urine Nitrite (NEGATIVE) Urine Bilirubin (NEGATIVE) Urine Urobilinogen (0.2-1.0) E.U./dL Ur Leukocyte Esterase (NEGATIVE) Urine RBC /HPF Urine WBC /HPF Ur Epithelial Cells /LPF Urine Bacteria (NONE TO FEW) /HPF Urine Mucus (NEGATIVE) /LPF Urine Other SARS-CoV-2 RNA (NARESH) (NEGATIVE) 08/24/20 08/24/20 08/25/20 Range/Units 16:15 16:23 07:17 WBC 4.1 (4.0-10.2) K/uL RBC 4.25 (3.77-5.09) M/uL Hgb 12.1 D (11.7-15.5) g/dL Hct 35.9 (34.0-46.0) % MCV 84.5 (84.0-98.0) fL MCH 28.5 (28.2-33.3) pg MCHC 33.7 (31.7-36.0) g/dL RDW 13.9 (11.2-14.1) % Plt Count 158 (150-350) K/uL Neut % (Auto) 43.7 L (45.0-80.0) % Lymph % (Auto) 43.2 (10.0-50.0) % Daniels % (Auto) 11.7 (2.0-14.0) % Eos % (Auto) 1.2 (0.0-5.0) % Baso % (Auto) 0.2 (0.0-2.0) % Neut # (Auto) 1.79 (1.40-7.00) K/uL Lymph # (Auto) 1.77 (0.50-3.50) K/uL Daniels # (Auto) 0.48 (0.00-1.00) K/uL Eos # (Auto) 0.05 (0.00-0.50) K/uL Baso # (Auto) 0.01 (0.00-0.20) K/uL PT (9.5-12.0) SEC INR APTT (24.5-32.8) SEC Sodium (136-145) mmol/L Potassium (3.5-5.1) mmol/L Chloride (98-107) mmol/L Carbon Dioxide (21.0-32.0) mmol/L BUN (7-18) mg/dL Creatinine (0.51-1.17) mg/dL Est Cr Clr Drug Dosing mL/min Estimated GFR (MDRD) mL/min Glucose (70-99) mg/dL Lactic Acid (0.4-2.0) mmol/L Uric Acid (2.6-7.2) mg/dL Calcium (8.5-10.1) mg/dL Magnesium (1.8-2.4) mg/dL Total Bilirubin (0.2-1.0) mg/dL AST (15-37) U/L ALT (12-78) U/L Alkaline Phosphatase (46-116) IU/L Total Protein (6.4-8.2) g/dL Albumin (3.4-5.0) g/dL Amylase (25-115) U/L Lipase (73-393) U/L HCG, Qual Negative (NEGATIVE) Specimen Type Urinvoid Urine Color Yellow Urine Appearance Slightly cloudy Urine pH 7.0 (5.0-9.0) Ur Specific [place] 1.025 (1.005-1.030) Urine Protein Negative (NEGATIVE) mg/dL Urine Glucose (UA) Negative (NEGATIVE) mg/dL Urine Ketones Trace H (NEGATIVE) mg/dL Urine Occult Blood Trace-intact H (NEGATIVE) Urine Nitrite Negative (NEGATIVE) Urine Bilirubin Negative (NEGATIVE) Urine Urobilinogen 2.0 H (0.2-1.0) E.U./dL Ur Leukocyte Esterase Negative (NEGATIVE) Urine RBC 0-5 /HPF Urine WBC 5-10 H /HPF Ur Epithelial Cells Many H /LPF Urine Bacteria Moderate H (NONE TO FEW) /HPF Urine Mucus Moderate H (NEGATIVE) /LPF Urine Other SARS-CoV-2 RNA (NARESH) (NEGATIVE) 08/25/20 Range/Units 07:17 WBC (4.0-10.2) K/uL RBC (3.77-5.09) M/uL Hgb (11.7-15.5) g/dL Hct (34.0-46.0) % MCV (84.0-98.0) fL MCH (28.2-33.3) pg MCHC (31.7-36.0) g/dL RDW (11.2-14.1) % Plt Count (150-350) K/uL Neut % (Auto) (45.0-80.0) % Lymph % (Auto) (10.0-50.0) % Daniels % (Auto) (2.0-14.0) % Eos % (Auto) (0.0-5.0) % Baso % (Auto) (0.0-2.0) % Neut # (Auto) (1.40-7.00) K/uL Lymph # (Auto) (0.50-3.50) K/uL Daniels # (Auto) (0.00-1.00) K/uL Eos # (Auto) (0.00-0.50) K/uL Baso # (Auto) (0.00-0.20) K/uL PT (9.5-12.0) SEC INR APTT (24.5-32.8) SEC Sodium 144 (136-145) mmol/L Potassium 3.6 (3.5-5.1) mmol/L Chloride 108 H (98-107) mmol/L Carbon Dioxide 26.0 (21.0-32.0) mmol/L BUN 13 (7-18) mg/dL Creatinine 0.70 (0.51-1.17) mg/dL Est Cr Clr Drug Dosing 131.34 mL/min Estimated GFR (MDRD) > 60 mL/min Glucose 81 (70-99) mg/dL Lactic Acid (0.4-2.0) mmol/L Uric Acid (2.6-7.2) mg/dL Calcium 8.4 L (8.5-10.1) mg/dL Magnesium (1.8-2.4) mg/dL Total Bilirubin 1.1 H (0.2-1.0) mg/dL AST 14 L (15-37) U/L ALT 25 (12-78) U/L Alkaline Phosphatase 83 (46-116) IU/L Total Protein 6.0 L (6.4-8.2) g/dL Albumin 3.1 L (3.4-5.0) g/dL Amylase (25-115) U/L Lipase (73-393) U/L HCG, Qual (NEGATIVE) Specimen Type Urine Color Urine Appearance Urine pH (5.0-9.0) Ur Specific [place] (1.005-1.030) Urine Protein (NEGATIVE) mg/dL Urine Glucose (UA) (NEGATIVE) mg/dL Urine Ketones (NEGATIVE) mg/dL Urine Occult Blood (NEGATIVE) Urine Nitrite (NEGATIVE) Urine Bilirubin (NEGATIVE) Urine Urobilinogen (0.2-1.0) E.U./dL Ur Leukocyte Esterase (NEGATIVE) Urine RBC /HPF Urine WBC /HPF Ur Epithelial Cells /LPF Urine Bacteria (NONE TO FEW) /HPF Urine Mucus (NEGATIVE) /LPF Urine Other SARS-CoV-2 RNA (NARESH) (NEGATIVE) Result Diagrams: 08/25/20 07:17 08/25/20 07:17 Alvin Results Last 24 hrs: Microbiology 08/24/20 16:12 Influenza Type A Antigen Screen - Final Nasal, Unspecified NEGATIVE INFLUENZA A VIRUS AG REFERENCE RANGE: NEGATIVE Influenza Type B Antigen Screen - Final NEGATIVE INFLUENZA B VIRUS AG REFERENCE RANGE: NEGATIVE Sepsis Event Note - Evaluation Sepsis Screening Result: No Definite Risk - Focused Exam Vital Signs: Vital Signs Temp Temp Temp Pulse Pulse Resp BP 08/25/20 12:00 36.5 C 57 L 16 08/25/20 08:51 72 136/85 08/25/20 08:50 36.5 C 72 16 08/25/20 04:00 36.4 C 54 L 14 BP Pulse Ox 08/25/20 12:00 126/79 100 08/25/20 08:51 08/25/20 08:50 136/85 99 08/25/20 04:00 129/75 100 - Problem List & Annotations (1) Abdominal pain SNOMED Code(s): 07506812 Code(s): R10.9 - UNSPECIFIED ABDOMINAL PAIN Status: Acute Priority: High Current Visit: Yes Onset Date: 08/24/20 Qualifiers: Abdominal location: unspecified location Qualified Code(s): R10.9 - Unspecified abdominal pain Annotation/Comment:: The patient is tolerating her diet with persistent although improved right lower quadrant palpation pain with occasional radiation into the pelvis and resolution of her previous borderline peritonitis. CT scan of the abdomen and pelvis with IV contrast was overall negative. Possibility of developing diverticulitis versus symptoms from a ruptured ovarian cyst as in the past, although negative findings as above, including no evidence of peritonitis. Note no leukocytosis, lactic acid elevation, fever, etc.. No fever or leukocytosis on 08/25. High-dose IV Pepcid and IV Protonix were given as GI prophylaxis. Secondary to suspicion of beginning peritonitis patient was started on IV Cipro and IV Flagyl, which will be continued after placement in observation status.. She was also given a 1 L bolus of lactated Ringer's. Secondary to some suboptimal fluid intake the patient was started on IV LR on 08/25. Various therapeutic options were discussed with the patient and her in the emergency room with the patient requesting further observation in this facility. Note status post gastric bypass with possibility of symptomatic adhesions. Repeat blood work in the a.m. Patient did need IV Dilaudid for pain control in the emergency room. Consider continuation of IV antibiotics and change to acute care tomorrow morning, if symptoms remain refractory to therapy. (2) UTI (urinary tract infection) SNOMED Code(s): 23349213 Code(s): N39.0 - URINARY TRACT INFECTION, SITE NOT SPECIFIED Status: Acute Priority: High Current Visit: Yes Onset Date: 08/24/20 Qualifiers: Urinary tract infection type: acute cystitis Hematuria presence: without hematuria Qualified Code(s): N30.00 - Acute cystitis without hematuria Annotation/Comment:: Possibility of beginning UTI with urine specimen set up for culture and sensitivity. Note initiation of IV Cipro therapy as above. No evidence of hydronephrosis, urolithiasis, etc. by CT scan as above. Note mild ketonuria with normal lactic acid level and IV fluids given as above. Blood cultures were not indicated. (3) Hypertension SNOMED Code(s): 03609570 Code(s): I10 - ESSENTIAL (PRIMARY) HYPERTENSION Status: Chronic Priority: Medium Current Visit: Yes Qualifiers: Hypertension type: essential hypertension Qualified Code(s): I10 - Essential (primary) hypertension Annotation/Comment:: Blood pressure somewhat elevated in the emergency room however in good control shortly after admission. (4) Mixed anxiety depressive disorder SNOMED Code(s): 446272833 Code(s): F41.8 - OTHER SPECIFIED ANXIETY DISORDERS Status: Chronic Priority: Medium Current Visit: Yes Annotation/Comment:: Stable by history, although moderate control based on examinations in the emergency room and during this hospitalization. Continue to observe closely by regular provider. (5) Obesity SNOMED Code(s): 010652484, 565381102 Code(s): E66.9 - OBESITY, UNSPECIFIED Status: Chronic Priority: Medium Current Visit: Yes Qualifiers: Obesity type: due to excess calories Obesity classification: adult class 2 (BMI 35 - 39.9) Serious obesity comorbidity presence: without serious comorbidity Body mass index: BMI 39.0-39.9 Qualified Code(s): E66.09 - Other obesity due to excess calories; Z68.39 - Body mass index [BMI] 39.0-39.9, adult Annotation/Comment:: The patient was congratulated about her 53 pound weight loss since her gastric bypass on 05/16/2020. (6) Rheumatoid arthritis SNOMED Code(s): 91271211 Code(s): M06.9 - RHEUMATOID ARTHRITIS, UNSPECIFIED Status: Chronic Priority: Medium Current Visit: Yes Qualifiers: Rheumatoid arthritis location: multiple sites Rheumatoid factor presence: without rheumatoid factor Qualified Code(s): M06.09 - Rheumatoid arthritis without rheumatoid factor, multiple sites Annotation/Comment:: Stable by history. Continue close follow-up by her head coach. (7) Tobacco abuse counseling SNOMED Code(s): 895435773, 410198277, 000973273 Code(s): Z71.6 - TOBACCO ABUSE COUNSELING Status: Chronic Priority: Medium Current Visit: Yes Annotation/Comment:: Patient and her were counseled on tobacco smoking and exposure. Tobacco cessation information once again given. - Problem List Review Problem List Initiated/Reviewed/Updated: Yes - My Orders Last 24 Hours: My Active Orders 08/24/20 16:11 Sodium Chloride 0.9% [Saline Flush] 10 ml FLUSH ASDIRECTED PRN Resuscitation Status Stat 08/24/20 16:12 Abdomen Pelvis w Cont [CT] Stat Peripheral IV Insertion Adult [OM.PC] Stat 08/24/20 16:13 Peripheral IV Care [RC] . DIRECTED 08/24/20 16:15 Isolation [COMM] Routine 08/24/20 16:23 CULTURE URINE [RM] Stat 08/24/20 19:03 hydrOXYzine HCL [Atarax] 25 mg PO BID PRN 08/24/20 19:04 Communication Order [RC] DAILY Communication Order [RC] Q4HR Height and Weight [RC] DAILY Intake and Output Strict [RC] 06,18 Oxygen Therapy [RC] PRN Pulse Oximetry [RC] ASDIRECTED Up With Assistance [RC] ASDIRECTED OCCULT BLOOD DIAGNOSTIC [OP] Routine Acetaminophen [TylenoL] 650 mg PO Q4H PRN Ondansetron [Zofran] 4 mg IVPUSH Q6H PRN GM Immunization Reflex [OM.PC] Click to Edit 08/24/20 19:05 Communication, Vaccine [RC] .PRN 08/24/20 19:07 HYDROmorphone [Dilaudid] 0.5 mg IVPUSH Q6H PRN Ketorolac [Toradol] 15 mg IVPUSH Q6H PRN 08/24/20 20:00 Folic Acid 1 mg PO BEDTIME Sodium Chloride 0.9% [Saline Flush] 10 ml FLUSH Q12HR Temazepam [Restoril] 15 mg PO DAILY@1999 PRN 08/25/20 01:00 metroNIDAZOLE/Normal Saline [Flagyl in NS 500 MG/100 ML] 500 mg Premix Bag 1 bag IV Q8H 08/25/20 04:00 Ciprofloxacin in D5W [Cipro in D5W 200 MG/100 ML] 200 mg Premix Bag 1 bag IV Q12H Famotidine [Pepcid] 20 mg IVPUSH Q12H Pantoprazole [ProTONIX IV] 40 mg IVPUSH Q12H 08/25/20 08:00 DULoxetine [Cymbalta] 20 mg PO DAILY Metoprolol Tartrate [Lopressor] 12.5 mg PO BID Non-Formulary Medication [NF Drug] 1 each PO DAILY 08/25/20 13:45 Lactated Ringers [Ringers, Lactated] 1,000 ml IV ASDIRECTED 08/25/20 13:48 Vital Signs [RC] Q6HR 08/25/20 Dinner Foard Diet [DIET] 08/26/20 05:11 Abdomen Series w Chest 1V [CR] Routine CBC WITH AUTO DIFF [HEME] Routine COMPREHENSIVE METABOLIC PN,CMP [CHEM] Routine - Assessment Assessment:: As above - Plan Plan:: As above. Extensive precautions were given to the patient, who is in agreement with the treatment plan. Likely discharge to home tomorrow versus change to acute care as above. Bev parr physician assumes care in the a.m.
[2020-08-25] MEDS: Lactated Ringers 1,000 ML IV SCH (14:52)
[2020-08-25] MEDS ORDERED: Famotidine 20 MG/2 ML SDV IVPUSH SCH (16:00)
[2020-08-25] MEDS: Folic Acid 1 MG Tab PO SCH (19:41)
[2020-08-25] MEDS: Temazepam 15 MG Cap PO PRN (23:01)
[2020-08-26] MEDS: metroNIDAZOLE/Normal Saline 500 MG in Premix Bag 1 BAG IV SCH ×2 (00:37→08:05)
[2020-08-26] MEDS: Pantoprazole 40 MG Vial IVPUSH SCH (03:44)
[2020-08-26] MEDS: Lactated Ringers 1,000 ML IV SCH (03:44)
[2020-08-26] MEDS: Famotidine 20 MG/2 ML SDV IVPUSH SCH (03:47)
[2020-08-26] MEDS: Ciprofloxacin in D5W 200 MG in Premix Bag 1 BAG IV SCH ×2 (03:48)
[2020-08-26 06:06] VITALS: PULSE 51
[2020-08-26] MEDS: DULoxetine 20 MG Cap PO SCH (08:06)
[2020-08-26 08:08] VITALS: BP 116/64
[2020-08-26] MEDS: Sodium Chloride 0.9% 10 ML Syringe FLUSH SCH (08:08)
[2020-08-26] MEDS: Metoprolol Tartrate 25 MG Tab PO SCH (08:08)
[2020-08-26] MEDS: MULTIVITAMIN PO SCH (08:08)
[2020-08-26 08:37] LABS: CHLORIDE,CL 108 mmol/L (98-107); SODIUM,NA 143 mmol/L (136-145)
[2020-08-26] MEDS ORDERED: Magnesium Citrate Solution 296 ML Bottle PO ONE (11:27)
[2020-08-26] MEDS ORDERED: Lactulose Soln 10 GM/15 ML 30 ML UD Cup PO ONE (11:28)
[2020-08-26] MEDS ORDERED: Polyethylene Glycol 3350 Powder 17 GM Packet PO ONE (11:28)
--- NOTE | 2020-08-26 11:37 | PCM.DCSUM1 ---
Discharge Summary - Hospital Course Brief History: Patient admitted for further evaluation and treatment of abdominal pain Diagnosis: Stroke: No - Discharge Data Discharge Date: 08/26/20 Discharge Disposition: Home, Self-Care 01 Condition: Good - Referral to Home Health Primary Care Physician: Tianna Sena PA-C - Discharge Diagnosis/Problem(s) (1) Abdominal pain SNOMED Code(s): 97447455 ICD Code: R10.9 - UNSPECIFIED ABDOMINAL PAIN Status: Acute Priority: High Current Visit: Yes Onset Date: 08/24/20 Problem Details: Patient currently pain-free. Tolerating foold/fluid. CT scan of the abdomen and pelvis with IV contrast was overall negative. Note no leukocytosis, lactic acid elevation, fever, etc during stay. High-dose IV Pepcid and IV Protonix were given as GI prophylaxis. Secondary questionable beginning peritonitis patient was started on IV Cipro and IV Flagyl. Status post gastric bypass with possibility of symptomatic adhesions considered as was diverticulitis or ruptured ovarian cyst. Patient did need IV Dilaudid for pain control in the emergency room. Plain films of abdomen today show increased stool load RLQ and ascending colon. Further questioning of patient revealed that pain would be triggered by eating/drinking which could be consistent with constipation. Qualifiers: Abdominal location: unspecified location Qualified Code(s): R10.9 - Unspecified abdominal pain (2) UTI (urinary tract infection) SNOMED Code(s): 86280149 ICD Code: N39.0 - URINARY TRACT INFECTION, SITE NOT SPECIFIED Status: Acute Priority: High Current Visit: Yes Onset Date: 08/24/20 Problem Details: Note initiation of IV Cipro therapy as above. No evidence of hydronephrosis, urolithiasis, etc. by CT scan as above. Note mild ketonuria with normal lactic acid level and IV fluids given as above. Blood cultures were not indicated. UA showed 5-10 WBC but no LE/nitrite. UC negative. Do not suspect UTI at this time/antibiotics will not be continued at discharge. Qualifiers: Urinary tract infection type: acute cystitis Hematuria presence: without hematuria Qualified Code(s): N30.00 - Acute cystitis without hematuria (3) Hypertension SNOMED Code(s): 91007975 ICD Code: I10 - ESSENTIAL (PRIMARY) HYPERTENSION Status: Chronic Priority: Medium Current Visit: Yes Problem Details: Blood pressure somewhat elevated in the emergency room however in good control shortly after admission. Qualifiers: Hypertension type: essential hypertension Qualified Code(s): I10 - Essential (primary) hypertension (4) Mixed anxiety depressive disorder SNOMED Code(s): 858961403 ICD Code: F41.8 - OTHER SPECIFIED ANXIETY DISORDERS Status: Chronic Priority: Medium Current Visit: Yes Problem Details: Stable by history, although moderate control based on examinations in the emergency room and during this hospitalization. Continue to observe closely by regular provider. (5) Obesity SNOMED Code(s): 780633105, 747814541 ICD Code: E66.9 - OBESITY, UNSPECIFIED Status: Chronic Priority: Medium Current Visit: Yes Problem Details: The patient was congratulated about her 53 pound weight loss since her gastric bypass on 05/16/2020. Qualifiers: Obesity type: due to excess calories Obesity classification: adult class 2 (BMI 35 - 39.9) Serious obesity comorbidity presence: without serious comorbidity Body mass index: BMI 39.0-39.9 Qualified Code(s): E66.09 - Other obesity due to excess calories; Z68.39 - Body mass index [BMI] 39.0-39.9, adult (6) Rheumatoid arthritis SNOMED Code(s): 25889739 ICD Code: M06.9 - RHEUMATOID ARTHRITIS, UNSPECIFIED Status: Chronic Prio rity: Medium Current Visit: Yes Problem Details: Stable by history. 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 Qualifiers: Rheumatoid arthritis location: multiple sites Rheumatoid factor presence: without rheumatoid factor Qualified Code(s): M06.09 - Rheumatoid arthritis without rheumatoid factor, multiple sites - Patient Summary/Data Hospital Course: Workup included repeated lab studies/CT of abdomen. No specific findings noted. Pain persisted yesterday and patient kept on observation an additional day. Antibiotic coverage for possible etiologies initiated as described above. Cause of pain remained unidentified. Today plain films of abdomen are notable for increased stool in RLQ and ascending colon. Patient does describe pain as coming/going and worsening after eating and drinking. Currently is pain free. That pattern is found with constipation. After visiting with patient to discuss differential and treatment options, next intervention will be to give laxatives to promote a good bowel movement and see if that resolves pain complaints. Precautions reviewed and is to return to ER/Clinic if symptoms change/worsen/persist. She would like to be discharged home this morning. A grees to above plan and will return as needed. - Patient Instructions Diet: Anti-Inflammatory (Highly recommend anti-inflammatory and elimination diet to see if helps with RA) Activity: As Tolerated Driving: Do Not Drive Showering/Bathing: May Shower Notify Provider of: Fever, Increased Pain, Nausea and/or Vomiting Other/Special Instructions: See if your pain resolves after laxatives promote a good bowel cleansing. If it does, then this very likely was due to constipation. If pain returns/worsens then please follow up to be rechecked and treatment plan updated. Call if you have questions. - Discharge Plan *PRESCRIPTION DRUG MONITORING PROGRAM REVIEWED*: Not Applicable *COPY OF PRESCRIPTION DRUG MONITORING REPORT IN PATIENT HERI: Not Applicable Home Medications: Home Meds Folic Acid 1 mg PO BEDTIME 08/11/18 [History] Adalimumab [Humira] 40 mg SQ ASDIRECTED 01/06/20 [History] Albuterol [Ventolin HFA] 1 - 2 puff INH Q4HR PRN 01/06/20 [History] DULoxetine [Cymbalta] 20 mg PO DAILY 01/06/20 [History] hydrOXYzine HCL [Hydroxyzine HCl] 25 mg PO BID PRN 01/06/20 [History] metHOTREXate sodium [Methotrexate] 20 mg SQ ASDIRECTED 01/06/20 [History] Acetaminophen 650 mg PO Q6HR PRN 05/28/20 [History] Cholecalciferol (Vitamin D3) [Vitamin D] 50,000 unit PO WEEKLY 05/28/20 [History] Metoprolol Tartrate 12.5 mg PO BID 05/28/20 [History] Non-Formulary Medication [NF Drug] 1 tab PO DAILY 05/28/20 [History] Omeprazole 20 mg PO DAILY 05/28/20 [History] Ondansetron [Zofran ODT] 4 mg PO Q6H PRN 05/28/20 [History] Patient Handouts: Steps to Quit Smoking, [id number], Health Risks of Smoking, Diverticulitis, [id number], Urinary Tract Infection, Adult, Xcym-sk-[id number], Abdominal Pain, Adult, [id number] Forms: ED Department Discharge Referrals: Tianna Sena PA-C [Primary Care Provider] - - Discharge Summary/Plan Comment DC Time >30 min.: No - General Info Date of Service: 08/26/20 Admission Dx/Problem (Free Text: Abdominal pain Subjective Update: Feeling better today, currently pain-free Functional Status: Reports: Pain Controlled, Tolerating Diet, Ambulating, Urinating. Denies: New Symptoms - Review of Systems General: Reports: No Symptoms HEENT: Reports: No Symptoms Pulmonary: Reports: No Symptoms Cardiovascular: Reports: No Symptoms Gastrointestinal: Reports: Constipation (has not had a bowel movement since admission), Flatus. Denies: Abdominal Pain, Diarrhea, Difficulty Swallowing, Hematochezia, Nausea, Vomiting Genitourinary: Reports: No Symptoms Musculoskeletal: Reports: Other (no acute changes from baseline) Skin: Reports: No Symptoms Neurological: Reports: No Symptoms Psychiatric: Reports: No Symptoms - Patient Data Vitals - Most Recent: Last Vital Signs Temp 36.6 C 08/26/20 00:00 Pulse 51 L 08/26/20 08:08 Resp 12 08/26/20 00:00 BP 116/64 08/26/20 08:08 Pulse Ox 97 08/26/20 00:00 Weight - Most Recent: 125.464 kg I&O - Last 24 hours: Intake & Output 08/25/20 08/26/20 08/26/20 22:59 06:59 14:59 Intake Total 740 1800 500 Balance 740 1800 500 Lab Results - Last 24 hrs: Laboratory Results - last 24 hr 08/26/20 08/26/20 Range/Units 07:30 07:30 WBC 3.5 L (4.0-10.2) K/uL RBC 4.23 (3.77-5.09) M/uL Hgb 12.0 (11.7-15.5) g/dL Hct 35.6 (34.0-46.0) % MCV 84.2 (84.0-98.0) fL MCH 28.4 (28.2-33.3) pg MCHC 33.7 (31.7-36.0) g/dL RDW 13.9 (11.2-14.1) % Plt Count 162 (150-350) K/uL Neut % (Auto) 44.1 L (45.0-80.0) % Lymph % (Auto) 43.5 (10.0-50.0) % Bent % (Auto) 10.1 (2.0-14.0) % Eos % (Auto) 2.0 (0.0-5.0) % Baso % (Auto) 0.3 (0.0-2.0) % Neut # (Auto) 1.52 (1.40-7.00) K/uL Lymph # (Auto) 1.50 (0.50-3.50) K/uL Bent # (Auto) 0.35 (0.00-1.00) K/uL Eos # (Auto) 0.07 (0.00-0.50) K/uL Baso # (Auto) 0.01 (0.00-0.20) K/uL Sodium 143 (136-145) mmol/L Potassium 3.5 (3.5-5.1) mmol/L Chloride 108 H (98-107) mmol/L Carbon Dioxide 25.1 (21.0-32.0) mmol/L BUN 15 (7-18) mg/dL Creatinine 0.73 (0.51-1.17) mg/dL Est Cr Clr Drug Dosing 125.95 mL/min Estimated GFR (MDRD) > 60 mL/min Glucose 80 (70-99) mg/dL Calcium 8.3 L (8.5-10.1) mg/dL Total Bilirubin 0.8 (0.2-1.0) mg/dL AST 14 L (15-37) U/L ALT 26 (12-78) U/L Alkaline Phosphatase 81 (46-116) IU/L Total Protein 6.1 L (6.4-8.2) g/dL Albumin 3.2 L (3.4-5.0) g/dL DASIA Results - Last 24 hrs: Microbiology 08/24/20 16:23 Urine Culture - Final Urine, Clean Catch MIXED POSITIVE CECILE DAY 2 Med Orders - Current: Current Medications Acetaminophen (Acetaminophen 325 Mg Tab) 650 mg PO Q4H PRN PRN Reason: Pain Last Admin: 08/25/20 17:38 Dose: 650 mg Documented by: Duloxetine HCl (Duloxetine 20 Mg Cap) 20 mg PO DAILY HAO Last Admin: 08/26/20 08:06 Dose: 20 mg Documented by: Famotidine (Famotidine 20 Mg/2 Ml Sdv) 20 mg IVPUSH Q12H HAO Last Admin: 08/26/20 03:47 Dose: 20 mg Documented by: Folic Acid (Folic Acid 1 Mg Tab) 1 mg PO BEDTIME [facility] Last Admin: 08/25/20 19:41 Dose: 1 mg Documented by: Hydromorphone HCl (Hydromorphone 0.5 Mg/0.5 Ml Syringe) 0.5 mg IVPUSH Q6H PRN PRN Reason: Pain (severe 7-10) Hydroxyzine HCl (Hydroxyzine Hcl 25 Mg Tab) 25 mg PO BID PRN PRN Reason: Anxiety Metronidazole 500 mg/ Premix 100 mls @ 100 mls/hr IV Q8H [facility] Last Admin: 08/26/20 08:05 Dose: 100 mls/hr Documented by: Ciprofloxacin/Dextrose 200 mg/ (Premix) 100 mls @ 100 mls/hr IV Q12H [facility] Last Admin: 08/26/20 03:48 Dose: 100 mls/hr Documented by: Lactated Ringer's (Ringers, Lactated) 1,000 mls @ 100 mls/hr IV ASDIRECTED [facility] Last Admin: 08/26/20 03:44 Dose: 100 mls/hr Documented by: Ketorolac Tromethamine (Ketorolac 15 Mg/Ml Sdv) 15 mg IVPUSH Q6H PRN PRN Reason: Pain (moderate 4-6) Last Admin: 08/25/20 11:50 Dose: 15 mg Documented by: Lactulose (Lactulose Soln 10 Gm/15 Ml 30 Ml Ud Cup) 20 gm PO ONETIME ONE Stop: 08/26/20 11:29 Magnesium Citrate (Magnesium Citrate Solution 296 Ml Bottle) 296 ml PO ONETIME ONE Stop: 08/26/20 11:28 Metoprolol Tartrate (Metoprolol Tartrate 25 Mg Tab) 12.5 mg PO BID [facility] Last Admin: 08/26/20 08:08 Dose: 12.5 mg Documented by: Chewable Multivitamin Gbp Formula 1 EachOwn Med 1 each PO DAILY [facility] Last Admin: 08/26/20 08:08 Dose: Not Given Documented by: Ondansetron HCl (Ondansetron 4 Mg/2 Ml Sdv) 4 mg IVPUSH Q6H PRN PRN Reason: Nausea/Vomiting Pantoprazole Sodium (Pantoprazole 40 Mg Vial) 40 mg IVPUSH Q12H HAO Last Admin: 08/26/20 03:44 Dose: 40 mg Documented by: Polyethylene Glycol (Polyethylene Glycol 3350 Powder 17 Gm Packet) 17 gm PO ONETIME ONE Stop: 08/26/20 11:29 Sodium Chloride (Sodium Chloride 0.9% 10 Ml Syringe) 10 ml FLUSH ASDIRECTED PRN PRN Reason: Keep Vein Open Last Admin: 08/25/20 15:45 Dose: 10 ml Documented by: Sodium Chloride (Sodium Chloride 0.9% 10 Ml Syringe) 10 ml FLUSH Q12HR HAO Last Admin: 08/26/20 08:08 Dose: Not Given Documented by: Temazepam (Temazepam 15 Mg Cap) 15 mg PO DAILY@2000 PRN PRN Reason: Insomnia Last Admin: 08/25/20 23:01 Dose: 15 mg Documented by: Discontinued Medications Famotidine (Famotidine 20 Mg/2 Ml Sdv) 40 mg IVPUSH ONETIME ONE Stop: 08/24/20 16:12 Last Admin: 08/24/20 16:29 Dose: 40 mg Documented by: Famotidine (Famotidine 20 Mg/2 Ml Sdv) 20 mg IVPUSH Q12H HAO Hydromorphone HCl (Hydromorphone 1 Mg/Ml Syringe) 1 mg IVPUSH ONETIME ONE Stop: 08/24/20 17:29 Last Admin: 08/24/20 17:32 Dose: 1 mg Documented by: Lactated Ringer's (Ringers, Lactated) 1,000 mls @ 999 mls/hr IV .BOLUS ONE Stop: 08/24/20 17:11 Last Admin: 08/24/20 16:46 Dose: 999 mls/hr Documented by: Metronidazole 500 mg/ Premix 100 mls @ 100 mls/hr IV ONETIME ONE Stop: 08/24/20 17:10 Last Admin: 08/24/20 16:45 Dose: 100 mls/hr Documented by: Ciprofloxacin/Dextrose 200 mg/ (Premix) 100 mls @ 100 mls/hr IV ONETIME ONE Stop: 08/24/20 17:10 Last Admin: 08/24/20 16:30 Dose: 100 mls/hr Documented by: Iopamidol (Iopamidol 612 Mg/Ml 100 Ml Bottle) 100 ml IVPUSH ONETIME STA Stop: 08/24/20 16:21 Last Admin: 08/24/20 17:15 Dose: 100 ml Documented by: Ondansetron HCl (Ondansetron 4 Mg/2 Ml Sdv) 4 mg IVPUSH ONETIME ONE Stop: 08/24/20 16:12 Last Admin: 08/24/20 16:29 Dose: 4 mg Documented by: Pantoprazole Sodium (Pantoprazole 40 Mg Vial) 40 mg IVPUSH ONETIME ONE Stop: 08/24/20 16:12 Last Admin: 08/24/20 16:29 Dose: 40 mg Documented by: - Exam General: Reports: Alert, Oriented, Cooperative, No Acute Distress HEENT: Reports: Pupils Equal, Pupils Reactive, EOMI, Mucous Membr. Moist/[place] Neck: Reports: Supple Lungs: Reports: Clear to Auscultation, Normal Respiratory Effort Cardiovascular: Reports: Regular Rate, Regular Rhythm GI/Abdominal Exam: Normal Bowel Sounds, Soft, Non-Tender, No Distention (Female) Exam: Deferred Rectal (Female) Exam: Deferred Back Exam: Reports: Normal Inspection, Full Range of Motion Extremities: Normal Inspection, Normal Range of Motion, Non-Tender, Normal Capillary Refill Skin: Reports: Warm, Dry Neurological: Reports: No New Focal Deficit Psy/Mental Status: Reports: Alert, Normal Affect, Normal Mood
== END 2020-08-26 12:25 | disposition home or self-care (01) ==
LOC: LL.ED 15:49 → LL.MS 18:50
PROVIDERS: ADMIT Family Medicine; ATTEND Family Medicine
DX: R10.9 Unspecified abdominal pain (principal); N39.0 Urinary tract infection, site not specified; I10 Essential (primary) hypertension; F41.8 Other specified anxiety disorders; E66.09 Other obesity due to excess calories; M06.9 Rheumatoid arthritis, unspecified; Z79.899 Other long term (current) drug therapy; Z20.822 Contact with and (suspected) exposure to COVID-19
CPT/HCPCS: 36415; 74022; 74177; 80053; 81001; 82150; 83605; 83690; 83735; 84550; 84703; 85025; 85610; 85730; 87086; 87804; 96365; 96366; 96367; 96375; 96376; 99217; 99220; 99225; 99285-25; A9270-GY; C9113; G0378; J0744; J1170; J1885; J2405; J3490; J7120; Q9967; U0002

== ENCOUNTER 2020-12-05 17:27 | Emergency (ER) | payer BC ==
[2020-12-05] MEDS ORDERED: Sodium Chloride 0.9% 10 ML Syringe FLUSH PRN (17:31)
[2020-12-05 17:56] VITALS: PULSE 75
[2020-12-05] MEDS ORDERED: Aspirin 81 MG Tab.Chew PO ONE (18:02)
[2020-12-05] MEDS ORDERED: Nitroglycerin 0.4 MG Tab.SL SL ONE (18:03)
[2020-12-05 18:05] LABS: CHLORIDE,CL 109 mmol/L (98-107); SODIUM,NA 143 mmol/L (136-145)
[2020-12-05 18:06] LABS: ANION GAP 12.7 meq/L (7-15)
--- NOTE | 2020-12-05 18:10 | EDM.PDOC ---
ED HPI GENERAL MEDICAL PROBLEM - General Chief Complaint: Chest Pain Stated Complaint: chest pain Time Seen by Provider: 12/05/20 17:28 Source of Information: Reports: Patient History Limitations: Reports: No Limitations - History of Present Illness INITIAL COMMENTS - FREE TEXT/NARRATIVE: Comes to ER for complaints of left sided chest pain, worse when raising arms over head, SOB, rapid heart rate. Started around 4:45PM. SOB/Rapid heart rate resolved by time of arrival to ER. Chest pain improved and down to a "4". Several similar episodes in past. Last one thought to be due to panic attack. History of probable non-STEMI in past and patient reports that Cardiology felt there was minor damage to the heart at that time. [place] sweaty at that time. No sense of doom that she remembers. No recent acute health changes. Left Chest Pain Score (Numeric/FACES): 6 - Related Data Allergies Allergy/AdvReac Type Severity Reaction Status Date / Time Corticosteroids Allergy Other Verified 12/05/20 17:42 (Glucocorticoids) nickel Allergy Rash Verified 12/05/20 17:42 NSAIDS (Non-Steroidal Allergy Other Verified 12/05/20 17:42 Anti-Inflamma Penicillins Allergy Hives Verified 12/05/20 17:42 Home Meds: Home Meds Folic Acid 1 mg PO BEDTIME 08/11/18 [History] Adalimumab [Humira] 40 mg SQ NUNEZ@199901/06/20 [History] Albuterol [Ventolin HFA] 1 - 2 puff INH Q4HR PRN 01/06/20 [History] DULoxetine [Cymbalta] 20 mg PO BEDTIME 01/06/20 [History] hydrOXYzine HCL [Hydroxyzine HCl] 25 mg PO BID PRN 01/06/20 [History] metHOTREXate sodium [Methotrexate] 20 mg SQ NUNEZ@199901/06/20 [History] Acetaminophen 650 mg PO Q6HR PRN 05/28/20 [History] Cholecalciferol (Vitamin D3) [Vitamin D] 50,000 unit PO TH@0800 05/28/20 [History] Metoprolol Tartrate 12.5 mg PO BID 05/28/20 [History] Non-Formulary Medication [NF Drug] 1 tab PO DAILY 05/28/20 [History] Omeprazole 20 mg PO DAILY 05/28/20 [History] Ondansetron [Zofran ODT] 4 mg PO Q6H PRN 05/28/20 [History] Past Medical History HEENT History: Reports: Allergic Rhinitis, Impaired Vision Other HEENT History: Sseasonal allergies. Hx. of recurrent tonsilitis as a child. She wears glasses and soft contact lenses. Cardiovascular History: Reports: CAD, Hypertension, CA, Other (See Below) Other Cardiovascular History: Hx of elevated troponin and possible CA in August 2019 with normal stress echo at time and no history of other intervention, heart catheterization, etc. Respiratory History: Reports: Intubation, Previous, Sleep Apnea Other Respiratory History: She was compliant with her CPAP machine. Gastrointestinal History: Reports: Diverticulosis, Other (See Below) Other Gastrointestinal History: LFT elevation secondary to either fatty liver and/or methotrexate therapy. Genitourinary History: Reports: None ELECT EQUIP MAINT ENG History: Reports: , Spontaneous Other ELECT EQUIP MAINT ENG History: Miscarriages x 2. Her first miscarriage due to tear in wall of placenta/placental abruption with SAB at 17 weeks with D&C thereafter after delivery. Second miscarriage unknown cause found 20 weeks with delivery and subsequent D&C. 4 live births with one of those being adopted out. C- section 1 secondary to breech presentation was at full-term with subsequent follow-up scheduled secondary to previous as above. History of ovarian cysts without mittelschmerz. Musculoskeletal History: Reports: Arthritis, Fracture, Osteoarthritis, RA Other Musculoskeletal History: Recurrent bilateral ankle sprains. Right ankle medial malleolar chip fracture on 12/27/10. Rheumatoid arthritis currently under methotrexate and Humira therapy. Neurological History: Reports: None Psychiatric History: Reports: Anxiety, Depression Endocrine/Metabolic History: Reports: Obesity/BMI 30+ Hematologic History: Reports: Anemia, Iron Deficiency, Other (See Below) Other Hematologic History: Iron deficiency anemia during pregnancies. Immunologic History: Reports: Immunosuppression, Other (See Below) Other Immunologic History: Note current methotrexate and Humira therapy. Oncologic (Cancer) History: Reports: None Dermatologic History: Reports: None - Infectious Disease History Infectious Disease History: Reports: Chicken Pox, Mononucleosis, Novel Coronavirus - Past Surgical History Head Surgeries/Procedures: Reports: None HEENT Surgical History: Reports: Oral Surgery, Other (See Below) Other HEENT Surgeries/Procedures: [place] teeth extraction 4 at age 17. Subsequent teeth extractions4 with subsequent reconstructive maxillary and mandibular jaw surgery. Cardiovascular Surgical History: Reports: None Respiratory Surgical History: Reports: None GI Surgical History: Reports: Bariatric Procedure, Hernia, Abdominal, Other (See Below) Other GI Surgeries/Procedures: Martinez-en-Y on 05/16/2020. Abdominal ventral hernia repair on 03/27/18. Female Surgical History: Reports: Section, D&C, Dilitation & Evacuation, Other (See Below) Other Female Surgeries/Procedures: C-sections and D&Cs as above. Bilateral salpingectomies rather than tubal ligations at age 27 Endocrine Surgical History: Reports: None Neurological Surgical History: Reports: None Musculoskeletal Surgical History: Reports: None Oncologic Surgical History: Reports: None Dermatological Surgical History: Reports: None - Past Imaging History Past Imaging History: Reports: CAT Scan (Abdomen and pelvis on 05/28/2020. Wrist on 01/10/18.), Sleep Study (At age 23.), Ultrasound (OB ultrasounds. Complete abdominal ultrasound on 02/29/12. Right upper quadrant ultrasound on 01/28/11.). Denies: Mammogram Social & Family History - Family History HEENT: Reports: Macular Degeneration, Other (See Below) Other HEENT Family History: Paternal grandmother with macular degeneration. Cardiac: Reports: Arrhythmia, CAD, Cardiomyopathy, Heart Failure, Hypertension, CA, Pacemaker, Other (See Below) Other Cardiac Family History: Paternal aunt with CA and status post CABG x3 in her 50s. Father with fatal CA at age 60 with previous history of CHF. Hypertension in parents and multiple paternal family members paternal grandmother with CHF. Paternal aunt with unknown type of arrhythmia requiring pacemaker. Respiratory: Reports: COPD, Other (See Below) Other Respiratory Family Hisory: COPD in father and paternal grandmother with both parties using tobacco. GI: Reports: PUD, Other (See Below) Other GI Family History: Father with peptic ulcer disease. : Reports: Renal Calculus, Other (See Below) Other Family History: Father with recurrent urolithiasis. OBGYN: Reports: None Musculoskeletal: Reports: Arthritis, Osteoarthritis, Other (See Below) Other Musculoskeletal Family History: Father with osteoarthritis. Neurological: Reports: Alzheimers Disease, CVA, Dementia, MS, Seizure, Other (See Below) Other Neurological Family History: Mother with a later adult grand mall seizures. Father with organic brain syndrome. Paternal aunt with MS and additional history of postoperative CVA in her 50s after her CABG as above. Psychiatric: Reports: None Endocrine/Metabolic: Reports: Diabetes, type II, IDDM, Other (See Below) Other Endocrine/Metabolic Family History: IDDM in parents, paternal grandmother, maternal aunt x1. Diabetes mellitus in paternal uncle, maternal aunt, and paternal aunts x7. Hematologic: Reports: Anemia, Other (See Below) Other Hematologic Family History: Mother with iron deficiency anemia. Immunologic: Reports: None Dermatologic: Reports: None Oncologic: Reports: Breast, Skin, Other (See Below) Other Oncologic Family History: Father with unknown type of skin cancer. Paternal aunts x2 with breast cancer in their 50s. - Tobacco Use Tobacco Use Status *Q: Former Tobacco User Used Tobacco, but Quit: Yes Month/Year Tobacco Last Used: quit years ago Second Hand Smoke Exposure: Yes - Caffeine Use Caffeine Use: Reports: Coffee, Soda Caffeine Use Comment: One cup per day of coffee. Patient usually has 1 Mt. dew per week. - Recreational Drug Use Recreational Drug Use: No - Sexual History Sexual History: Reports: Sexually Active, Single Partner. Denies: Oral Sex - Living Situation & Occupation Living situation: Reports: (2013. One child prior to marriage, who was adopted out. 4 children with current ), with Family Occupation: Employed ([employer] at [employer]) ED ROS GENERAL - Review of Systems Review Of Systems: See Below Constitutional: Reports: Diaphoresis. Denies: Fever, Chills, Malaise, Weakness, Fatigue, Night Sweats, Decreased Appetite HEENT: Reports: No Symptoms Respiratory: Reports: Shortness of Breath. Denies: Wheezing, Pleuritic Chest Pain, Cough, Sputum, Hemoptysis Cardiovascular: Reports: Chest Pain, Other (heart rate elevated earlier). Denies: Dyspnea on Exertion, Edema, Lightheadedness, Orthopnea, PND, Syncope GI/Abdominal: Reports: No Symptoms : Reports: No Symptoms Musculoskeletal: Reports: Other (no acute changes from baseline) Skin: Reports: No Symptoms Neurological: Denies: Confusion, Dizziness, Headache, Numbness, Paresthesia, Tingling, Trouble Speaking, Change in Speech, Gait Disturbance Psychiatric: Reports: Other (Did have anxiety as she is worried that it could be another non-STEMI) ED EXAM, GENERAL - Physical Exam Exam: See Below Exam Limited By: No Limitations General Appearance: Alert, No Apparent Distress, Obese Eye Exam: Bilateral Eye: EOMI, PERRL Ears: Normal External Exam, Hearing Grossly Normal Nose: No: Nasal Deformity, Nasal Swelling, Nasal Drainage Throat/Mouth: Normal Lips, Normal Voice, No Airway Compromise Head: Atraumatic, Normocephalic Neck: Normal Inspection, Supple, Non-Tender, Full Range of Motion Respiratory/Chest: No Respiratory Distress, Lungs Clear, Normal Breath Sounds, No Accessory Muscle Use, Other (Chest tender with palpation adjacent to sternum both left and right but more so on left. Also sore with palpation lower left anterior chest. Palpation in these areas reproduces pain complaint. ) Cardiovascular: Regular Rate, Rhythm, No Edema, No Murmur GI/Abdominal: Normal Bowel Sounds, Soft, Non-Tender, No Distention (Female) Exam: Deferred Rectal (Female) Exam: Deferred Back Exam: No: CVA Tenderness (L), CVA Tenderness (R), Muscle Spasm Extremities: Normal Inspection, Normal Range of Motion, Non-Tender, Normal Capillary Refill Neurological: Alert, Oriented, Normal Cognition, Normal Gait, No Motor/Sensory Deficits Psychiatric: Normal Affect, Normal Mood Skin Exam: Warm, Dry, Intact, Normal Color #1 Interpretation EKG Date: 12/05/20 Time: 17:35 Rhythm: NSR Rate (Beats/Min): 71 [place]: Normal P-Wave: Present QRS: Normal ST-T: Other (Some flattening of Ts noted lateral ventricular leads. No obvious suggestion of acute ischemia) QT: Normal Comparison: Other: (No significant change from EKG performed in 2019) Course - Vital Signs Last Recorded V/S: Last Vital Signs Temp 36.7 C 12/05/20 17:31 Pulse 75 12/05/20 17:31 Resp 18 12/05/20 17:31 BP 126/84 12/05/20 18:22 Pulse Ox 100 12/05/20 17:31 - Orders/Labs/Meds Orders: Active Orders 24 hr Category Date Time Status EKG Documentation Completion [RC] ASDIRECTED Care 12/05/20 17:32 Active Chest 2V [CR] Stat Exams 12/05/20 17:31 Taken Sodium Chloride 0.9% [Saline Flush] Med 12/05/20 17:31 Active 10 ml FLUSH ASDIRECTED PRN Saline Lock Insert [OM.PC] Stat Oth 12/05/20 17:31 Ordered Medication Orders Sodium Chloride (Sodium Chloride 0.9% 10 Ml Syringe) 10 ml FLUSH ASDIRECTED PRN PRN Reason: Keep Vein Open Labs: Laboratory Tests 12/05/20 12/05/20 12/05/20 Range/Units 17:35 17:35 17:35 WBC 6.0 (4.0-10.2) K/uL RBC 4.57 (3.77-5.09) M/uL Hgb 13.0 (11.7-15.5) g/dL Hct 38.4 (34.0-46.0) % MCV 84.0 (84.0-98.0) fL MCH 28.4 (28.2-33.3) pg MCHC 33.9 (31.7-36.0) g/dL RDW 12.9 (11.2-14.1) % Plt Count 233 (150-350) K/uL Neut % (Auto) 54.0 (45.0-80.0) % Lymph % (Auto) 34.9 (10.0-50.0) % [place] % (Auto) 9.8 (2.0-14.0) % Eos % (Auto) 1.0 (0.0-5.0) % Baso % (Auto) 0.3 (0.0-2.0) % Neut # (Auto) 3.24 (1.40-7.00) K/uL Lymph # (Auto) 2.10 (0.50-3.50) K/uL [place] # (Auto) 0.59 (0.00-1.00) K/uL Eos # (Auto) 0.06 (0.00-0.50) K/uL Baso # (Auto) 0.02 (0.00-0.20) K/uL D-Dimer, Quantitative < 100 (0-400) ng/mL Sodium 143 (136-145) mmol/L Potassium 3.7 (3.5-5.1) mmol/L Chloride 109 H (98-107) mmol/L Carbon Dioxide 25.0 (21.0-32.0) mmol/L Anion Gap 12.7 (7-15) meq/L BUN 18 (7-18) mg/dL Creatinine 0.89 (0.51-1.17) mg/dL Est Cr Clr Drug Dosing TNP Estimated GFR (MDRD) > 60 mL/min Glucose 75 (70-99) mg/dL Lactic Acid (0.4-2.0) mmol/L Calcium 8.5 (8.5-10.1) mg/dL Magnesium 2.0 (1.8-2.4) mg/dL Total Bilirubin 0.9 (0.2-1.0) mg/dL AST 16 (15-37) U/L ALT 30 (12-78) U/L Alkaline Phosphatase 127 H (46-116) IU/L Troponin I High Sens < 4 (<=51) ng/L NT-Pro-B Natriuret Pep 64 (0-125) pg/mL Total Protein 7.4 (6.4-8.2) g/dL Albumin 3.9 (3.4-5.0) g/dL Specimen Type Urine Color Urine Appearance Urine pH (5.0-9.0) Ur Specific Zach[place] (1.005-1.030) Urine Protein (NEGATIVE) mg/dL Urine Glucose (UA) (NEGATIVE) mg/dL Urine Ketones (NEGATIVE) mg/dL Urine Occult Blood (NEGATIVE) Urine Nitrite (NEGATIVE) Urine Bilirubin (NEGATIVE) Urine Urobilinogen (0.2-1.0) E.U./dL Ur Leukocyte Esterase (NEGATIVE) Urine RBC /HPF Urine WBC /HPF Ur Epithelial Cells /LPF Urine Bacteria (NONE TO FEW) /HPF Urine HCG, Qual Urine Opiates Screen (NEGATIVE) Ur Buprenorphine Scrn (NEGATIVE) Ur Oxycodone Screen (NEGATIVE) Ur EDDP (Meth Metab) (NEGATIVE) Ur Barbiturates Screen (NEGATIVE) Ur Tricyclics Screen (NEGATIVE) Ur Amphetamine Screen (NEGATIVE) U Methamphetamines Scrn (NEGATIVE) Urine MDMA Screen (NEGATIVE) U Benzodiazepines Scrn (NEGATIVE) U Cocaine Metab Screen (NEGATIVE) U Marijuana (THC) Screen (NEGATIVE) 12/05/20 12/05/20 12/05/20 Range/Units 17:35 18:05 18:05 WBC (4.0-10.2) K/uL RBC (3.77-5.09) M/uL Hgb (11.7-15.5) g/dL Hct (34.0-46.0) % MCV (84.0-98.0) fL MCH (28.2-33.3) pg MCHC (31.7-36.0) g/dL RDW (11.2-14.1) % Plt Count (150-350) K/uL Neut % (Auto) (45.0-80.0) % Lymph % (Auto) (10.0-50.0) % [place] % (Auto) (2.0-14.0) % Eos % (Auto) (0.0-5.0) % Baso % (Auto) (0.0-2.0) % Neut # (Auto) (1.40-7.00) K/uL Lymph # (Auto) (0.50-3.50) K/uL [place] # (Auto) (0.00-1.00) K/uL Eos # (Auto) (0.00-0.50) K/uL Baso # (Auto) (0.00-0.20) K/uL D-Dimer, Quantitative (0-400) ng/mL Sodium (136-145) mmol/L Potassium (3.5-5.1) mmol/L Chloride (98-107) mmol/L Carbon Dioxide (21.0-32.0) mmol/L Anion Gap (7-15) meq/L BUN (7-18) mg/dL Creatinine (0.51-1.17) mg/dL Est Cr Clr Drug Dosing Estimated GFR (MDRD) mL/min Glucose (70-99) mg/dL Lactic Acid 1.2 (0.4-2.0) mmol/L Calcium (8.5-10.1) mg/dL Magnesium (1.8-2.4) mg/dL Total Bilirubin (0.2-1.0) mg/dL AST (15-37) U/L ALT (12-78) U/L Alkaline Phosphatase (46-116) IU/L Troponin I High Sens (<=51) ng/L NT-Pro-B Natriuret Pep (0-125) pg/mL Total Protein (6.4-8.2) g/dL Albumin (3.4-5.0) g/dL Specimen Type Urinvoid Urine Color Yellow Urine Appearance Clear Urine pH 7.0 (5.0-9.0) Ur Specific [place] 1.025 (1.005-1.030) Urine Protein Negative (NEGATIVE) mg/dL Urine Glucose (UA) Negative (NEGATIVE) mg/dL Urine Ketones Trace H (NEGATIVE) mg/dL Urine Occult Blood Negative (NEGATIVE) Urine Nitrite Negative (NEGATIVE) Urine Bilirubin Negative (NEGATIVE) Urine Urobilinogen 2.0 H (0.2-1.0) E.U./dL Ur Leukocyte Esterase Negative (NEGATIVE) Urine RBC 0-5 /HPF Urine WBC 0-5 /HPF Ur Epithelial Cells Few /LPF Urine Bacteria Rare (NONE TO FEW) /HPF Urine HCG, Qual Negative Urine Opiates Screen (NEGATIVE) Ur Buprenorphine Scrn (NEGATIVE) Ur Oxycodone Screen (NEGATIVE) Ur EDDP (Meth Metab) (NEGATIVE) Ur Barbiturates Screen (NEGATIVE) Ur Tricyclics Screen (NEGATIVE) Ur Amphetamine Screen (NEGATIVE) U Methamphetamines Scrn (NEGATIVE) Urine MDMA Screen (NEGATIVE) U Benzodiazepines Scrn (NEGATIVE) U Cocaine Metab Screen (NEGATIVE) U Marijuana (THC) Screen (NEGATIVE) 12/05/20 Range/Units 18:05 WBC (4.0-10.2) K/uL RBC (3.77-5.09) M/uL Hgb (11.7-15.5) g/dL Hct (34.0-46.0) % MCV (84.0-98.0) fL MCH (28.2-33.3) pg MCHC (31.7-36.0) g/dL RDW (11.2-14.1) % Plt Count (150-350) K/uL Neut % (Auto) (45.0-80.0) % Lymph % (Auto) (10.0-50.0) % [place] % (Auto) (2.0-14.0) % Eos % (Auto) (0.0-5.0) % Baso % (Auto) (0.0-2.0) % Neut # (Auto) (1.40-7.00) K/uL Lymph # (Auto) (0.50-3.50) K/uL [place] # (Auto) (0.00-1.00) K/uL Eos # (Auto) (0.00-0.50) K/uL Baso # (Auto) (0.00-0.20) K/uL D-Dimer, Quantitative (0-400) ng/mL Sodium (136-145) mmol/L Potassium (3.5-5.1) mmol/L Chloride (98-107) mmol/L Carbon Dioxide (21.0-32.0) mmol/L Anion Gap (7-15) meq/L BUN (7-18) mg/dL Creatinine (0.51-1.17) mg/dL Est Cr Clr Drug Dosing Estimated GFR (MDRD) mL/min Glucose (70-99) mg/dL Lactic Acid (0.4-2.0) mmol/L Calcium (8.5-10.1) mg/dL Magnesium (1.8-2.4) mg/dL Total Bilirubin (0.2-1.0) mg/dL AST (15-37) U/L ALT (12-78) U/L Alkaline Phosphatase (46-116) IU/L Troponin I High Sens (<=51) ng/L NT-Pro-B Natriuret Pep (0-125) pg/mL Total Protein (6.4-8.2) g/dL Albumin (3.4-5.0) g/dL Specimen Type Urine Color Urine Appearance Urine pH (5.0-9.0) Ur Specific [place] (1.005-1.030) Urine Protein (NEGATIVE) mg/dL Urine Glucose (UA) (NEGATIVE) mg/dL Urine Ketones (NEGATIVE) mg/dL Urine Occult Blood (NEGATIVE) Urine Nitrite (NEGATIVE) Urine Bilirubin (NEGATIVE) Urine Urobilinogen (0.2-1.0) E.U./dL Ur Leukocyte Esterase (NEGATIVE) Urine RBC /HPF Urine WBC /HPF Ur Epithelial Cells /LPF Urine Bacteria (NONE TO FEW) /HPF Urine HCG, Qual Urine Opiates Screen Negative (NEGATIVE) Ur Buprenorphine Scrn Negative (NEGATIVE) Ur Oxycodone Screen Negative (NEGATIVE) Ur EDDP (Meth Metab) Negative (NEGATIVE) Ur Barbiturates Screen Negative (NEGATIVE) Ur Tricyclics Screen Negative (NEGATIVE) Ur Amphetamine Screen Negative (NEGATIVE) U Methamphetamines Scrn Negative (NEGATIVE) Urine MDMA Screen Negative (NEGATIVE) U Benzodiazepines Scrn Negative (NEGATIVE) U Cocaine Metab Screen Negative (NEGATIVE) U Marijuana (THC) Screen Negative (NEGATIVE) Meds: Medications Generic Name Dose Route Start Last Admin Trade Name Freq PRN Reason Stop Dose Admin Sodium Chloride 10 ml 12/05/20 17:31 Sodium Chloride 0.9% 10 Ml Syringe FLUSH ASDIRECTED PRN Keep Vein Open Discontinued Medications Generic Name Dose Route Start Last Admin Trade Name Freq PRN Reason Stop Dose Admin Aspirin 324 mg 12/05/20 18:02 12/05/20 18:22 Aspirin 81 Mg Tab.Chew PO 12/05/20 18:03 324 mg ONETIME ONE Administration Nitroglycerin 0.4 mg 12/05/20 18:03 12/05/20 18:22 Nitroglycerin 0.4 Mg Tab.Sl SL 12/05/20 18:04 0.4 mg ONETIME ONE Administration - Radiology Interpretation Free Text/Narrative:: Chest xray overall unremarkable. - Re-Assessments/Exams Free Text/Narrative Re-Assessment/Exam: 12/05/20 18:17 Patient appeared to be in no obvious distress during stay. BP a bit elevated, but normal RR/HR and good O2 sats. No obvious acute changes on chest xray or EKG. Labs unremarkable, including troponin, ddimer, bnp, lactic. Pain is reproducible with palpation of chest, which suggests a possible musculo-skeletal etiology for pain complaint. Suspect associated anxiety component. ASA and Nitro given to patient. 12/05/20 18:43 No obvious change in chest pain s/p Nitro. Discomfort is down to a 2-3. Pain is still reproducible with palpation on sides of sternum and left lower rib margin anteriorly. Patient's anxiety/SOB/tachycardia have resolved. Differential includes chest wall pain/anxiety & panic but cannot fully rule out an episode of tachycardia initiating the event. Patient does not want to stay as an observation patient and have serial labs/troponins drawn/telemetry. She wants to be discharged home. Follow up with PCP recommended to discuss possible stress testing/other testing as needed for further evaluation. To return to ER if she has sudden worsening problems. Departure - Departure Time of Disposition: 18:41 Disposition: Home, Self-Care 01 Condition: Good Clinical Impression: Atypical chest pain - Discharge Information *PRESCRIPTION DRUG MONITORING PROGRAM REVIEWED*: Not Applicable *COPY OF PRESCRIPTION DRUG MONITORING REPORT IN PATIENT HERI: Not Applicable Instructions: Chest Wall Pain, [id number] Referrals: Tianna Sena PA-C [Primary Care Provider] - Forms: ED Department Discharge Additional Instructions: Observe for changes. Follow up as needed if you have further problems. Check in with your primary. Discuss possible updated stress testing and other possible testing as we reviewed during your stay in the ER. Sepsis Event Note (ED) - Evaluation Sepsis Screening Result: No Definite Risk - Focused Exam Vital Signs: Vital Signs Temp Pulse Resp BP BP Pulse Ox 12/05/20 18:22 126/84 12/05/20 17:31 36.7 C 75 18 144/93 H 100 - My Orders Last 24 Hours: My Active Orders 12/05/20 17:31 Chest 2V [CR] Stat Sodium Chloride 0.9% [Saline Flush] 10 ml FLUSH ASDIRECTED PRN Saline Lock Insert [OM.PC] Stat 12/05/20 17:32 EKG Documentation Completion [RC] ASDIRECTED - Assessment/Plan Last 24 Hours: My Active Orders 12/05/20 17:31 Chest 2V [CR] Stat Sodium Chloride 0.9% [Saline Flush] 10 ml FLUSH ASDIRECTED PRN Saline Lock Insert [OM.PC] Stat 12/05/20 17:32 EKG Documentation Completion [RC] ASDIRECTED
[2020-12-05 18:23] VITALS: BP 126/84
[2020-12-05 18:26] LABS: BARBITURATE SCREEN,URINE NEGATIVE (NEGATIVE); BENZODIAZEPINES SCREEN,URINE NEGATIVE (NEGATIVE); BUPRENORPHINE SCREEN,URINE NEGATIVE (NEGATIVE); EDDP,URINE SCREEN NEGATIVE (NEGATIVE); TCA SCREEN,URINE NEGATIVE (NEGATIVE); THC SCREEN,URINE 50 NG/ML NEGATIVE (NEGATIVE)
== END 2020-12-05 18:50 | disposition home or self-care (01) ==
LOC: LL.ED 17:27
DX: R07.89 Other chest pain (principal); I25.10 Atherosclerotic heart disease of native coronary artery without angina pectoris; I10 Essential (primary) hypertension; I25.2 Old myocardial infarction; Z86.16 Personal history of COVID-19; Z87.891 Personal history of nicotine dependence; Z88.0 Allergy status to penicillin; Z91.048 Other nonmedicinal substance allergy status; Z88.8 Allergy status to other drugs, medicaments and biological substances
CPT/HCPCS: 71046; 80053; 80305-QW; 81001; 81025; 83605; 83735; 83880; 84484; 85025; 85379; 93005; 93010; 99284; 99285-25; A9270-GY

== ENCOUNTER 2021-07-04 12:08 | Emergency (ER) | payer BC ==
[2021-07-04 12:47] VITALS: BP 133/86; PULSE 97
[2021-07-04 12:54] LABS: CHLORIDE,CL 108 mmol/L (98-107); SODIUM,NA 142 mmol/L (136-145)
[2021-07-04 12:55] LABS: ANION GAP 13.2 meq/L (7-15)
[2021-07-04] MEDS ORDERED: Morphine 2 MG/ML SYRINGE IVPUSH ONE (13:02)
[2021-07-04] MEDS: Sodium Chloride 0.9% 10 ML Syringe FLUSH PRN ×2 (13:07→14:16)
[2021-07-04] MEDS ORDERED: Ondansetron 4 MG Tab.DIS PO ONE (13:11)
[2021-07-04] MEDS ORDERED: Iopamidol 612 MG/ML 100 ML Bottle ONE (14:04)
[2021-07-04] MEDS ORDERED: Lactated Ringers 1,000 ML IV ONE (14:09)
== END 2021-07-04 15:30 | disposition home or self-care (01) ==
LOC: LL.ED 12:08
DX: K52.9 Noninfective gastroenteritis and colitis, unspecified (principal); I25.10 Atherosclerotic heart disease of native coronary artery without angina pectoris; I10 Essential (primary) hypertension; I25.2 Old myocardial infarction; Z88.0 Allergy status to penicillin; Z91.048 Other nonmedicinal substance allergy status; Z88.8 Allergy status to other drugs, medicaments and biological substances
CPT/HCPCS: 36415; 74177; 80053; 81001; 83605; 83690; 83735; 84703; 85025; 96374; 99284; A9270; J2270; J7120; Q9967

== ENCOUNTER 2021-08-16 22:01 | Emergency (ER) | payer BC ==
[2021-08-16 22:58] LABS: ANION GAP 9.2 meq/L (7-15); CHLORIDE,CL 107 mmol/L (98-107); SODIUM,NA 142 mmol/L (136-145)
[2021-08-16] MEDS: Ketorolac 30 MG/ML SDV IVPUSH ONE (23:00)
[2021-08-16] MEDS: methylPREDNISolone Acetate 80 MG/ML SDV IM ONE (23:29)
[2021-08-17 00:15] VITALS: BP 110/70; PULSE 64
== END 2021-08-16 23:45 | disposition home or self-care (01) ==
LOC: LL.ED 22:01
DX: M79.601 Pain in right arm (principal); M54.6 Pain in thoracic spine; I25.10 Atherosclerotic heart disease of native coronary artery without angina pectoris; I10 Essential (primary) hypertension; I25.2 Old myocardial infarction; J44.9 Chronic obstructive pulmonary disease, unspecified; M19.90 Unspecified osteoarthritis, unspecified site; E11.9 Type 2 diabetes mellitus without complications; G35 Multiple sclerosis; Z86.73 Personal history of transient ischemic attack (TIA), and cerebral infarction without residual deficits; Z88.0 Allergy status to penicillin; Z91.048 Other nonmedicinal substance allergy status; Z88.8 Allergy status to other drugs, medicaments and biological substances
CPT/HCPCS: 36415; 80053; 84484; 85025; 85610; 93005; 93010; 96372; 96374; 99284; 99285-25; J1040; J1885

== ENCOUNTER 2022-04-24 16:35 | Emergency (ER) | payer BC ==
[2022-04-24] MEDS: EPINEPHrine 1 MG/ML SDV IM ONE ×2 (16:36→17:20)
[2022-04-24] MEDS: diphenhydrAMINE 50 MG/ML SDV IVPUSH ONE (16:40)
[2022-04-24] MEDS: methylPREDNISolone Sodium Succinate 125 MG/2 ML SDV IVPUSH ONE (16:40)
[2022-04-24] MEDS: Sodium Chloride 0.9% 1,000 ML IV ONE (16:41)
[2022-04-24] MEDS: Famotidine 20 MG/2 ML SDV IVPUSH ONE (16:45)
[2022-04-24 18:09] LABS: ANION GAP 12.3 meq/L (7-15)
[2022-04-24 18:55] VITALS: PULSE 73
[2022-04-24 20:15] VITALS: BP 116/71
== END 2022-04-24 20:00 | disposition home or self-care (01) ==
LOC: LL.ED 16:35
DX: T78.40XA Allergy, unspecified, initial encounter (principal); I25.10 Atherosclerotic heart disease of native coronary artery without angina pectoris; I10 Essential (primary) hypertension; I25.2 Old myocardial infarction; E66.9 Obesity, unspecified; Z68.32 Body mass index [BMI] 32.0-32.9, adult; Z88.0 Allergy status to penicillin; Z88.6 Allergy status to analgesic agent; Z91.048 Other nonmedicinal substance allergy status; Z79.899 Other long term (current) drug therapy; Z86.16 Personal history of COVID-19
CPT/HCPCS: 36415; 80053; 85025; 96361; 96372; 96374; 96375; 99283-25; J0171; J1200; J2930; J3490; J7030

== ENCOUNTER 2022-09-04 00:29 | Emergency (ER) | payer BC ==
[2022-09-04] MEDS ORDERED: Sodium Chloride 0.9% 10 ML Syringe FLUSH PRN (00:31)
[2022-09-04 00:43] LABS: BASOPHILS ABSOLUTE AUTO 0.02 K/uL (0.00-0.20); BASOPHILS PERCENT AUTO 0.3 % (0.0-2.0); EOSINOPHILS ABSOLUTE AUTO 0.08 K/uL (0.00-0.50); EOSINOPHILS PERCENT AUTO 1.3 % (0.0-5.0); HEMATOCRIT 33.9 % (34.0-46.0); HEMOGLOBIN 11.1 g/dL (11.7-15.5); LYMPHOCYTES ABSOLUTE AUTO 2.24 K/uL (0.50-3.50); LYMPHOCYTES PERCENT AUTO 36.7 % (10.0-50.0); MEAN CORPUSCULAR HEMOGLOBIN 24.7 pg (28.2-33.3); MEAN CORPUSCULAR HGB CONC 32.7 g/dL (31.7-36.0); MEAN CORPUSCULAR VOLUME 75.5 fL (84.0-98.0); MONOCYTES ABSOLUTE AUTO 0.54 K/uL (0.00-1.00); MONOCYTES PERCENT AUTO 8.9 % (2.0-14.0); NEUTROPHILS ABSOLUTE AUTO 3.22 K/uL (1.40-7.00); NEUTROPHILS PERCENT AUTO 52.8 % (45.0-80.0); PLATELET COUNT,PLT 273 K/uL (150-350); RED BLOOD CELL COUNT 4.49 M/uL (3.77-5.09); RED CELL DISTRIBUTION WIDTH 14.9 % (11.2-14.1); WHITE BLOOD CELL COUNT,WBC 6.1 K/uL (4.0-10.2)
[2022-09-04] MEDS ORDERED: GI Cocktail Oral Solution 30 ML PO ONE (00:47)
[2022-09-04 01:15] LABS: ALBUMIN 3.7 g/dL (3.4-5.0); BILIRUBIN TOTAL 0.6 mg/dL (0.2-1.0); CALCIUM 8.6 mg/dL (8.5-10.1); CARBON DIOXIDE,CO2 24.8 mmol/L (21.0-32.0); CREATININE 0.7 mg/dL (0.51-1.17); EST CRCL DRUG DOSING (CG) 128.96 mL/min; POTASSIUM,K 3.5 mmol/L (3.5-5.1); PROTEIN TOTAL,TP 7.3 g/dL (6.4-8.2)
[2022-09-04 01:16] LABS: ANION GAP 13.7 meq/L (7-15)
[2022-09-04 01:17] LABS: AMYLASE 34 U/L (25-115); LIPASE 89 U/L (73-393)
[2022-09-04] MEDS ORDERED: Ketorolac 30 MG/ML SDV IVPUSH ONE (01:27)
[2022-09-04 01:28] VITALS: BP 128/93; PULSE 72
[2022-09-04] MEDS ORDERED: Pantoprazole 40 MG Vial IVPUSH ONE (01:47)
== END 2022-09-04 06:36 | disposition home or self-care (01) ==
LOC: LL.ED 00:29
DX: R07.89 Other chest pain (principal); I25.10 Atherosclerotic heart disease of native coronary artery without angina pectoris; I10 Essential (primary) hypertension; I25.2 Old myocardial infarction; E66.9 Obesity, unspecified; Z68.36 Body mass index [BMI] 36.0-36.9, adult; Z86.16 Personal history of COVID-19; Z87.891 Personal history of nicotine dependence; Z91.048 Other nonmedicinal substance allergy status; Z88.0 Allergy status to penicillin; Z88.8 Allergy status to other drugs, medicaments and biological substances; Z88.6 Allergy status to analgesic agent; Z79.899 Other long term (current) drug therapy; Z79.84 Long term (current) use of oral hypoglycemic drugs
CPT/HCPCS: 36415; 71045; 80053; 82150; 83690; 83735; 83880; 84484; 85025; 85379; 93005; 93010; 96374; 96375; 99284; 99285-25; A9270-GY; C9113; J1885; J3490

== ENCOUNTER 2023-05-29 18:02 | Emergency (ER) | payer BC ==
[2023-05-29] MEDS ORDERED: Sodium Chloride 0.9% 10 ML Syringe FLUSH PRN (18:22)
[2023-05-29] MEDS ORDERED: Sodium Chloride 0.9% 1,000 ML IV ONE ×2 (18:22)
[2023-05-29] MEDS ORDERED: Acetaminophen 325 MG Tab PO ONE (18:31)
[2023-05-29 18:40] LABS: BASOPHILS ABSOLUTE AUTO 0.01 K/uL (0.00-0.20); BASOPHILS PERCENT AUTO 0.2 % (0.0-2.0); EOSINOPHILS ABSOLUTE AUTO 0.03 K/uL (0.00-0.50); EOSINOPHILS PERCENT AUTO 0.7 % (0.0-5.0); HEMATOCRIT 36.9 % (34.0-46.0); HEMOGLOBIN 12.1 g/dL (11.7-15.5); LYMPHOCYTES ABSOLUTE AUTO 0.29 K/uL (0.50-3.50); LYMPHOCYTES PERCENT AUTO 7.2 % (10.0-50.0); MEAN CORPUSCULAR HEMOGLOBIN 25.5 pg (28.2-33.3); MEAN CORPUSCULAR HGB CONC 32.8 g/dL (31.7-36.0); MEAN CORPUSCULAR VOLUME 77.7 fL (84.0-98.0); MONOCYTES PERCENT AUTO 14.9 % (2.0-14.0); NEUTROPHILS ABSOLUTE AUTO 3.09 K/uL (1.40-7.00); PLATELET COUNT,PLT 187 K/uL (150-350); RED BLOOD CELL COUNT 4.75 M/uL (3.77-5.09); RED CELL DISTRIBUTION WIDTH 14.1 % (11.2-14.1)
[2023-05-29 18:59] LABS: ALBUMIN 3.5 g/dL (3.4-5.0); ANION GAP 10.3 meq/L (7-15); C-REACTIVE PROTEIN 1.46 mg/dL (0.05-0.30); CARBON DIOXIDE,CO2 22.7 mmol/L (21.0-32.0); CREATININE 0.88 mg/dL (0.51-1.17); EST CRCL DRUG DOSING (CG) 101.63 mL/min; POTASSIUM,K 3.7 mmol/L (3.5-5.1); PROTEIN TOTAL,TP 7.3 g/dL (6.4-8.2)
[2023-05-29 19:05] LABS: LACTIC ACID 0.8 mmol/L (0.4-2.0)
[2023-05-29 19:21] LABS: CORONAVIRUS COVID-19 NAA NEGATIVE (NEGATIVE); INFLUENZA A NAA POSITIVE (NEGATIVE); INFLUENZA B NAA NEGATIVE (NEGATIVE); RESPIRATORY SYNCYTIAL VIR NAA NEGATIVE (NEGATIVE)
[2023-05-29] MEDS ORDERED: Take Home: Oseltamivir Phosphate 75 MG, 6 Cap Pack PO ONE (19:25)
[2023-05-29 20:06] VITALS: BP 140/90; PULSE 113
== END 2023-05-29 19:45 | disposition home or self-care (01) ==
LOC: LL.ED 18:02
DX: J10.1 Influenza due to other identified influenza virus with other respiratory manifestations (principal); I10 Essential (primary) hypertension; I25.2 Old myocardial infarction; I25.810 Atherosclerosis of coronary artery bypass graft(s) without angina pectoris; E66.9 Obesity, unspecified; Z86.16 Personal history of COVID-19; Z79.899 Other long term (current) drug therapy; Z88.0 Allergy status to penicillin; Z88.8 Allergy status to other drugs, medicaments and biological substances; Z91.048 Other nonmedicinal substance allergy status; Z68.36 Body mass index [BMI] 36.0-36.9, adult
CPT/HCPCS: 0241U; 36415; 80053; 83605; 85025; 86140; 87040; 87081; 87430; 96360; 96361; 99284-25; A9270-GY; J7030

== ENCOUNTER 2023-10-17 09:20 | Emergency (ER) | payer BC ==
[2023-10-17] MEDS: Sodium Chloride 0.9% 250 ML IV SCH (09:25)
[2023-10-17] MEDS: Sodium Chloride 0.9% 500 ML IV SCH (09:42)
[2023-10-17] MEDS: EPINEPHrine 1 MG/ML SDV IVPUSH ONE (09:53)
[2023-10-17] MEDS: Ondansetron 4 MG/2 ML SDV IVPUSH ONE ×2 (09:53→11:10)
[2023-10-17] MEDS: Famotidine 20 MG/2 ML SDV IVPUSH ONE (09:55)
[2023-10-17] MEDS: diphenhydrAMINE 50 MG/ML SDV IVPUSH ONE (09:55)
[2023-10-17] MEDS: Ketorolac 15 MG/ML SDV IVPUSH ONE (10:23)
[2023-10-17] MEDS: Sodium Chloride 0.9% 10 ML Syringe FLUSH PRN (10:24)
[2023-10-17] MEDS: Lactated Ringers 1,000 ML IV ONE (10:38)
[2023-10-17 10:58] VITALS: BP 91/58
[2023-10-17 11:18] VITALS: PULSE 75
[2023-10-17] MEDS: EPINEPHrine 1 MG/ML SDV IM ONE (11:46)
== END 2023-10-17 13:03 | disposition home or self-care (01) ==
LOC: LL.ED 09:53
DX: T78.2XXA Anaphylactic shock, unspecified, initial encounter (principal); I10 Essential (primary) hypertension; I25.10 Atherosclerotic heart disease of native coronary artery without angina pectoris; E66.9 Obesity, unspecified; I25.2 Old myocardial infarction; Z88.8 Allergy status to other drugs, medicaments and biological substances; Z88.0 Allergy status to penicillin; Z91.048 Other nonmedicinal substance allergy status; Z88.6 Allergy status to analgesic agent; Z87.891 Personal history of nicotine dependence; Z68.39 Body mass index [BMI] 39.0-39.9, adult
CPT/HCPCS: 96374; 96375; 96376; 99283-25; J0171; J1200; J1885; J2405; J3490; J7040; J7050; J7120

== ENCOUNTER 2023-10-18 22:45 | Observation (INO) | payer BC ==
[2023-10-18 23:01] LABS: BASOPHILS ABSOLUTE AUTO 0.02 K/uL (0.00-0.20); BASOPHILS PERCENT AUTO 0.3 % (0.0-2.0); EOSINOPHILS ABSOLUTE AUTO 0.05 K/uL (0.00-0.50); EOSINOPHILS PERCENT AUTO 0.8 % (0.0-5.0); HEMATOCRIT 37.3 % (34.0-46.0); HEMOGLOBIN 12.1 g/dL (11.7-15.5); LYMPHOCYTES ABSOLUTE AUTO 2.47 K/uL (0.50-3.50); LYMPHOCYTES PERCENT AUTO 40.2 % (10.0-50.0); MEAN CORPUSCULAR HEMOGLOBIN 25.9 pg (28.2-33.3); MEAN CORPUSCULAR HGB CONC 32.4 g/dL (31.7-36.0); MEAN CORPUSCULAR VOLUME 79.7 fL (84.0-98.0); MONOCYTES ABSOLUTE AUTO 0.66 K/uL (0.00-1.00); MONOCYTES PERCENT AUTO 10.7 % (2.0-14.0); NEUTROPHILS ABSOLUTE AUTO 2.95 K/uL (1.40-7.00); PLATELET COUNT,PLT 229 K/uL (150-350); RED BLOOD CELL COUNT 4.68 M/uL (3.77-5.09); RED CELL DISTRIBUTION WIDTH 16.4 % (11.2-14.1); WHITE BLOOD CELL COUNT,WBC 6.2 K/uL (4.0-10.2)
[2023-10-18] MEDS: LORazepam 0.5 MG Tab PO ONE (23:11)
[2023-10-18 23:18] LABS: ALANINE AMINOTRANSFERASE,ALT 44 U/L (12-78); ALBUMIN 3.4 g/dL (3.4-5.0); ALKALINE PHOSPHATASE 107 IU/L (46-116); ANION GAP 10.1 meq/L (7-15); ASPARTATE AMNIOTRANSFERASE,AST 23 U/L (15-37); BILIRUBIN TOTAL 0.6 mg/dL (0.2-1.0); BLOOD UREA NITROGEN,BUN 20 mg/dL (7-18); CALCIUM 8.5 mg/dL (8.5-10.1); CARBON DIOXIDE,CO2 23.9 mmol/L (21.0-32.0); CHLORIDE,CL 107 mmol/L (98-107); GLUCOSE RANDOM 58 mg/dL (70-99); MAGNESIUM 1.7 mg/dL (1.8-2.4); POTASSIUM,K 3.9 mmol/L (3.5-5.1); PROTEIN TOTAL,TP 6.9 g/dL (6.4-8.2); SODIUM,NA 141 mmol/L (136-145)
[2023-10-18 23:20] LABS: ESTIMATED GFR 87 mL/min (>=60)
[2023-10-19] MEDS: Aspirin 81 MG Tab.Chew PO ONE (00:14)
[2023-10-19] MEDS ORDERED: Non-Formulary Medication 1 Each (Epinephrine [Epipen] 0.3 MG/0.3 ML Pen) IM PRN ×2 (01:54→04:13)
[2023-10-19] MEDS ORDERED: Albuterol 6.7 GM Inhaler INH PRN (01:54)
[2023-10-19 07:20] LABS: BASOPHILS ABSOLUTE AUTO 0.01 K/uL (0.00-0.20); BASOPHILS PERCENT AUTO 0.2 % (0.0-2.0); EOSINOPHILS ABSOLUTE AUTO 0.06 K/uL (0.00-0.50); EOSINOPHILS PERCENT AUTO 1.3 % (0.0-5.0); HEMATOCRIT 36.3 % (34.0-46.0); HEMOGLOBIN 11.8 g/dL (11.7-15.5); LYMPHOCYTES ABSOLUTE AUTO 2.21 K/uL (0.50-3.50); LYMPHOCYTES PERCENT AUTO 47.6 % (10.0-50.0); MEAN CORPUSCULAR HGB CONC 32.5 g/dL (31.7-36.0); MONOCYTES ABSOLUTE AUTO 0.48 K/uL (0.00-1.00); MONOCYTES PERCENT AUTO 10.3 % (2.0-14.0); NEUTROPHILS ABSOLUTE AUTO 1.88 K/uL (1.40-7.00); NEUTROPHILS PERCENT AUTO 40.6 % (45.0-80.0); PLATELET COUNT,PLT 185 K/uL (150-350); RED BLOOD CELL COUNT 4.54 M/uL (3.77-5.09); RED CELL DISTRIBUTION WIDTH 16.3 % (11.2-14.1); WHITE BLOOD CELL COUNT,WBC 4.6 K/uL (4.0-10.2)
[2023-10-19 07:44] LABS: ALBUMIN 3.1 g/dL (3.4-5.0); ANION GAP 7.5 meq/L (7-15); BILIRUBIN TOTAL 0.7 mg/dL (0.2-1.0); CALCIUM 8.3 mg/dL (8.5-10.1); CARBON DIOXIDE,CO2 26.5 mmol/L (21.0-32.0); CREATININE 0.71 mg/dL (0.51-1.17); EST CRCL DRUG DOSING (CG) 125.96 mL/min; MAGNESIUM 1.7 mg/dL (1.8-2.4); POTASSIUM,K 3.6 mmol/L (3.5-5.1); PROTEIN TOTAL,TP 6.3 g/dL (6.4-8.2)
[2023-10-19 07:53] LABS: PROTHROMBIN TIME 10.3 SEC (9.0-11.1)
[2023-10-19] MEDS ORDERED: Cholecalciferol (Vitamin D3) 25 MCG Tab PO SCH (08:00)
[2023-10-19] MEDS: Hydrochlorothiazide 25 MG Tab PO SCH (08:05)
[2023-10-19] MEDS: Metoprolol Tartrate 25 MG Tab PO SCH (08:10)
[2023-10-19] MEDS: Cyanocobalamin (Vitamin B12) 100 MCG Tab PO SCH (08:10)
[2023-10-19] MEDS: Folic Acid 1 MG Tab PO SCH (08:11)
[2023-10-19] MEDS: DULoxetine 20 MG Cap PO SCH (08:11)
[2023-10-19] MEDS: Cholecalciferol (Vitamin D3) 25 MCG Tab PO SCH (08:12)
[2023-10-19] MEDS: Ferrous Sulfate 325 MG Tab PO SCH (08:12)
[2023-10-19] MEDS ORDERED: EPINEPHrine 1 MG/ML SDV IM PRN (10:14)
[2023-10-19] MEDS ORDERED: ETANERCEPT 25 MG/0.5 ML SQ SCH (11:00)
[2023-10-19] MEDS ORDERED: METHOTREXATE SODIUM 25 MG/ML SCH (11:00)
[2023-10-19] MEDS: Acetaminophen 325 MG Tab PO PRN (17:39)
[2023-10-19] MEDS ORDERED: CYCLOBENZAPRINE 5 MG PO SCH (20:00)
[2023-10-19] MEDS: Cyclobenzaprine 10 MG Tab PO SCH (22:21)
[2023-10-20 12:56] VITALS: BP 129/89; PULSE 94
== END 2023-10-20 12:50 | disposition home or self-care (01) ==
LOC: LL.ED 22:45 → LL.MS 10-19 01:30
PROVIDERS: ADMIT Physician Assistant; ATTEND Physician Assistant
DX: I21.A1 Myocardial infarction type 2 (principal); I10 Essential (primary) hypertension; I25.10 Atherosclerotic heart disease of native coronary artery without angina pectoris; F41.9 Anxiety disorder, unspecified; F32.A Depression, unspecified; Z88.0 Allergy status to penicillin; Z88.6 Allergy status to analgesic agent; Z88.8 Allergy status to other drugs, medicaments and biological substances
CPT/HCPCS: 36415; 71045; 80053; 82947; 83735; 84484; 85025; 85610; 93005; 99285; A9270-GY

== ENCOUNTER 2023-11-04 11:44 | Emergency (ER) | payer BC ==
[2023-11-04 14:39] VITALS: BP 132/81; PULSE 72
== END 2023-11-04 14:25 | disposition home or self-care (01) ==
LOC: LL.ED 11:44
DX: E16.2 Hypoglycemia, unspecified (principal); F17.210 Nicotine dependence, cigarettes, uncomplicated; I25.10 Atherosclerotic heart disease of native coronary artery without angina pectoris; I10 Essential (primary) hypertension; I25.2 Old myocardial infarction; E66.9 Obesity, unspecified; Z79.899 Other long term (current) drug therapy; Z88.0 Allergy status to penicillin; Z88.8 Allergy status to other drugs, medicaments and biological substances; Z88.6 Allergy status to analgesic agent; Z91.048 Other nonmedicinal substance allergy status
CPT/HCPCS: 82947; 99284

== ENCOUNTER 2024-04-06 01:20 | Emergency (ER) | payer BC ==
[2024-04-06 01:51] VITALS: BP 133/80; PULSE 92
[2024-04-06] MEDS: Take Home: Cyclobenzaprine 10 MG Tab, 4 Tab Pack PO ONE (02:37)
== END 2024-04-06 02:40 | disposition home or self-care (01) ==
LOC: LL.ED 01:20
DX: M54.50 Low back pain, unspecified (principal); Z88.8 Allergy status to other drugs, medicaments and biological substances; Z88.0 Allergy status to penicillin; Z91.048 Other nonmedicinal substance allergy status; Z88.6 Allergy status to analgesic agent
CPT/HCPCS: 99284; A9270-GY

== ENCOUNTER 2024-04-28 17:49 | Emergency (ER) | payer BC ==
[2024-04-28 18:48] LABS: BASOPHILS ABSOLUTE AUTO 0.03 K/uL (0.00-0.20); BASOPHILS PERCENT AUTO 0.5 % (0.0-2.0); EOSINOPHILS ABSOLUTE AUTO 0.04 K/uL (0.00-0.50); EOSINOPHILS PERCENT AUTO 0.6 % (0.0-5.0); HEMATOCRIT 39.2 % (34.0-46.0); HEMOGLOBIN 13.2 g/dL (11.7-15.5); IMMATURE GRAN ABSOLUTE AUTO 0.01 10^3/uL (0.00-0.04); IMMATURE GRAN PERCENT AUTO 0.2 % (0.0-0.4); LYMPHOCYTES PERCENT AUTO 30.1 % (10.0-50.0); MEAN CORPUSCULAR HEMOGLOBIN 27.7 pg (28.2-33.3); MEAN CORPUSCULAR HGB CONC 33.7 g/dL (31.7-36.0); MEAN CORPUSCULAR VOLUME 82.2 fL (84.0-98.0); MONOCYTES ABSOLUTE AUTO 0.44 K/uL (0.00-1.00); MONOCYTES PERCENT AUTO 6.6 % (2.0-14.0); NEUTROPHILS ABSOLUTE AUTO 4.12 K/uL (1.40-7.00); PLATELET COUNT,PLT 221 K/uL (150-350); RED BLOOD CELL COUNT 4.77 M/uL (3.77-5.09); RED CELL DISTRIBUTION WIDTH 12.4 % (11.2-14.1); WHITE BLOOD CELL COUNT,WBC 6.6 K/uL (4.0-10.2)
[2024-04-28 18:57] LABS: AMPHETAMINES SCREEN, URINE NEGATIVE (NEGATIVE); BARBITURATE SCREEN,URINE NEGATIVE (NEGATIVE); BENZODIAZEPINES SCREEN,URINE NEGATIVE (NEGATIVE); COCAINE METABOLITES,URINE NEGATIVE (NEGATIVE); EDDP,URINE SCREEN NEGATIVE (NEGATIVE); METHAMPHETAMINES SCREEN, URINE NEGATIVE (NEGATIVE); TCA SCREEN,URINE NEGATIVE (NEGATIVE); THC SCREEN,URINE 50 NG/ML NEGATIVE (NEGATIVE)
[2024-04-28 19:08] LABS: PROTHROMBIN TIME 9.9 SEC (9.0-11.1)
[2024-04-28 19:11] LABS: ALBUMIN 3.7 g/dL (3.4-5.0); ANION GAP 9.1 meq/L (7-15); BILIRUBIN TOTAL 0.8 mg/dL (0.2-1.0); CALCIUM 8.9 mg/dL (8.5-10.1); CARBON DIOXIDE,CO2 25.9 mmol/L (21.0-32.0); CREATININE 0.83 mg/dL (0.51-1.17); EST CRCL DRUG DOSING (CG) 104.25 mL/min; POTASSIUM,K 4.3 mmol/L (3.5-5.1); PROTEIN TOTAL,TP 7.5 g/dL (6.4-8.2)
[2024-04-28 19:16] LABS: BUPRENORPHINE SCREEN,URINE NEGATIVE (NEGATIVE); OXYCODONE SCREEN,URINE NEGATIVE (NEGATIVE)
[2024-04-28] MEDS: Acetaminophen 325 MG Tab PO ONE (20:19)
[2024-04-29 00:19] VITALS: BP 145/101; PULSE 66
== END 2024-04-28 23:33 ==
LOC: LL.ED 17:49
DX: F32.A Depression, unspecified (principal); R45.851 Suicidal ideations; I25.10 Atherosclerotic heart disease of native coronary artery without angina pectoris; I25.2 Old myocardial infarction; E66.9 Obesity, unspecified; Z79.899 Other long term (current) drug therapy; Z88.0 Allergy status to penicillin; Z88.6 Allergy status to analgesic agent; Z88.8 Allergy status to other drugs, medicaments and biological substances; Z91.048 Other nonmedicinal substance allergy status; Z68.41 Body mass index [BMI] 40.0-44.9, adult
CPT/HCPCS: 36415; 80053; 80143; 80305; 80307; 81025; 85025; 85610; 87428; 99285; A9270; 99284

== ENCOUNTER 2024-09-01 22:07 | Emergency (ER) | payer BC ==
[2024-09-01] MEDS ORDERED: Sodium Chloride 0.9% 10 ML Syringe FLUSH PRN (22:10)
[2024-09-01] MEDS: diphenhydrAMINE 50 MG/ML SDV IM ONE (22:37)
[2024-09-01] MEDS: Ketorolac 30 MG/ML SDV IM ONE (22:38)
[2024-09-01] MEDS: Prochlorperazine 10 MG/2 ML SDV IM ONE (22:40)
[2024-09-01 23:19] LABS: BASOPHILS ABSOLUTE AUTO 0.02 K/uL (0.00-0.20); BASOPHILS PERCENT AUTO 0.3 % (0.0-2.0); EOSINOPHILS ABSOLUTE AUTO 0.05 K/uL (0.00-0.50); EOSINOPHILS PERCENT AUTO 0.7 % (0.0-5.0); HEMATOCRIT 35.4 % (34.0-46.0); HEMOGLOBIN 12.4 g/dL (11.7-15.5); IMMATURE GRAN ABSOLUTE AUTO 0.01 10^3/uL (0.00-0.04); IMMATURE GRAN PERCENT AUTO 0.1 % (0.0-0.4); LYMPHOCYTES ABSOLUTE AUTO 2.37 K/uL (0.50-3.50); LYMPHOCYTES PERCENT AUTO 35.1 % (10.0-50.0); MEAN CORPUSCULAR VOLUME 88.5 fL (84.0-98.0); MONOCYTES ABSOLUTE AUTO 0.54 K/uL (0.00-1.00); NEUTROPHILS ABSOLUTE AUTO 3.76 K/uL (1.40-7.00); NEUTROPHILS PERCENT AUTO 55.8 % (45.0-80.0); PLATELET COUNT,PLT 214 K/uL (150-350); RED CELL DISTRIBUTION WIDTH 13.5 % (11.2-14.1); WHITE BLOOD CELL COUNT,WBC 6.8 K/uL (4.0-10.2)
[2024-09-01 23:45] LABS: PROTHROMBIN TIME 10.2 SEC (9.0-11.1)
[2024-09-01 23:46] LABS: ALANINE AMINOTRANSFERASE,ALT 39 U/L (12-78); ALBUMIN 3.1 g/dL (3.4-5.0); ALKALINE PHOSPHATASE 93 IU/L (46-116); ASPARTATE AMNIOTRANSFERASE,AST 21 U/L (15-37); BILIRUBIN TOTAL 0.9 mg/dL (0.2-1.0); BLOOD UREA NITROGEN,BUN 19 mg/dL (7-18); CALCIUM 8.2 mg/dL (8.5-10.1); CARBON DIOXIDE,CO2 23.6 mmol/L (21.0-32.0); CHLORIDE,CL 111 mmol/L (98-107); CREATININE 0.69 mg/dL (0.51-1.17); GLUCOSE RANDOM 87 mg/dL (70-99); MAGNESIUM 2.1 mg/dL (1.8-2.4); POTASSIUM,K 3.5 mmol/L (3.5-5.1); PROTEIN TOTAL,TP 6.4 g/dL (6.4-8.2); SODIUM,NA 142 mmol/L (136-145)
[2024-09-01 23:47] LABS: ANION GAP 10.9 meq/L (7-15); ESTIMATED GFR 117 mL/min (>=60)
[2024-09-02 00:11] VITALS: BP 108/52; PULSE 51
[2024-09-02] MEDS: diphenhydrAMINE 50 MG/ML SDV IVPUSH ONE (00:13)
[2024-09-02] MEDS: Prochlorperazine 10 MG/2 ML SDV IV ONE (00:14)
[2024-09-02] MEDS: Ketorolac 15 MG/ML SDV IVPUSH ONE (00:14)
[2024-09-02] MEDS: Lactated Ringers 1,000 ML IV ONE (00:14)
== END 2024-09-02 00:25 | disposition home or self-care (01) ==
LOC: LL.ED 22:07
DX: G43.909 Migraine, unspecified, not intractable, without status migrainosus (principal); I10 Essential (primary) hypertension; I25.10 Atherosclerotic heart disease of native coronary artery without angina pectoris; E66.9 Obesity, unspecified; Z79.899 Other long term (current) drug therapy; Z88.8 Allergy status to other drugs, medicaments and biological substances; Z88.0 Allergy status to penicillin; Z91.048 Other nonmedicinal substance allergy status
CPT/HCPCS: 36415; 71045; 80053; 83735; 84484; 85025; 85610; 93010; 96372; 99284; 99285; J0780; J1200; J1885

== ENCOUNTER 2024-12-17 17:59 | Emergency (ER) | payer BC ==
[2024-12-17 18:39] VITALS: BP 140/91; PULSE 103
== END 2024-12-17 19:10 | disposition home or self-care (01) ==
LOC: LL.ED 17:59
DX: U07.1 COVID-19 (principal); I10 Essential (primary) hypertension; E66.9 Obesity, unspecified; I25.10 Atherosclerotic heart disease of native coronary artery without angina pectoris; Z88.0 Allergy status to penicillin; Z88.8 Allergy status to other drugs, medicaments and biological substances; Z79.899 Other long term (current) drug therapy; Z68.41 Body mass index [BMI] 40.0-44.9, adult
CPT/HCPCS: 71046; 87428-QW; 99283; 99284

== ENCOUNTER 2025-03-24 14:45 | Emergency (ER) | payer BC ==
[2025-03-24 15:21] LABS: BASOPHILS ABSOLUTE AUTO 0.03 K/uL (0.00-0.20); BASOPHILS PERCENT AUTO 0.7 % (0.0-2.0); EOSINOPHILS ABSOLUTE AUTO 0.04 K/uL (0.00-0.50); EOSINOPHILS PERCENT AUTO 1.0 % (0.0-5.0); IMMATURE GRAN ABSOLUTE AUTO 0.00 10^3/uL (0.00-0.04); IMMATURE GRAN PERCENT AUTO 0.0 % (0.0-0.4); LYMPHOCYTES ABSOLUTE AUTO 1.42 K/uL (0.50-3.50); LYMPHOCYTES PERCENT AUTO 35.1 % (10.0-50.0); MONOCYTES ABSOLUTE AUTO 0.43 K/uL (0.00-1.00); MONOCYTES PERCENT AUTO 10.6 % (2.0-14.0); NEUTROPHILS ABSOLUTE AUTO 2.13 K/uL (1.40-7.00); NEUTROPHILS PERCENT AUTO 52.6 % (45.0-80.0); PLATELET COUNT,PLT 186 K/uL (150-350); RED BLOOD CELL COUNT 5.07 M/uL (3.77-5.09); RED CELL DISTRIBUTION WIDTH 12.0 % (11.2-14.1); WHITE BLOOD CELL COUNT,WBC 4.1 K/uL (4.0-10.2)
[2025-03-24] MEDS: Ondansetron 4 MG/2 ML SDV IVPUSH ONE (15:21)
[2025-03-24] MEDS: Sodium Chloride 0.9% 10 ML Syringe FLUSH PRN (15:22)
[2025-03-24 15:29] LABS: APPEARANCE,URINE CLEAR; GLUCOSE,URINE NEGATIVE (NEGATIVE); OCCULT BLOOD,URINE LARGE (NEGATIVE)
[2025-03-24 15:45] LABS: LACTIC ACID 0.6 mmol/L (0.4-2.0)
[2025-03-24 15:49] LABS: ALANINE AMINOTRANSFERASE,ALT 50 U/L (12-78); ASPARTATE AMNIOTRANSFERASE,AST 19 U/L (15-37); BILIRUBIN TOTAL 1.9 mg/dL (0.2-1.0); BLOOD UREA NITROGEN,BUN 25 mg/dL (7-18); CARBON DIOXIDE,CO2 25.6 mmol/L (21.0-32.0); CHLORIDE,CL 107 mmol/L (98-107); CREATININE 0.93 mg/dL (0.51-1.17); EST CRCL DRUG DOSING (CG) 95.27 mL/min; GLUCOSE RANDOM 87 mg/dL (70-99); POTASSIUM,K 3.9 mmol/L (3.5-5.1); PROTEIN TOTAL,TP 7.2 g/dL (6.4-8.2); SODIUM,NA 145 mmol/L (136-145)
[2025-03-24 15:51] LABS: ESTIMATED GFR 83 mL/min (>=60)
[2025-03-24 16:00] LABS: INR 1.1 (0.9-1.1); PTT,PARTIAL THROMBOPLSTIN TIME 23.5 SEC (23.8-34.4)
[2025-03-24] MEDS: Lactated Ringers 1,000 ML IV SCH (16:05)
[2025-03-24] MEDS: Iopamidol 612 MG/ML 100 ML Bottle IVPUSH ONE (17:11)
[2025-03-24] MEDS: Take Home: Acetaminophen/Codeine 300 MG/30 MG, 5 Tab Pack PO ONE (17:45)
[2025-03-24 17:47] VITALS: BP 126/79; PULSE 57
== END 2025-03-24 17:55 | disposition home or self-care (01) ==
LOC: LL.ED 14:45
DX: N93.9 Abnormal uterine and vaginal bleeding, unspecified (principal); I25.10 Atherosclerotic heart disease of native coronary artery without angina pectoris; I25.2 Old myocardial infarction; I10 Essential (primary) hypertension; E66.9 Obesity, unspecified; Z98.84 Bariatric surgery status; Z88.0 Allergy status to penicillin; Z88.8 Allergy status to other drugs, medicaments and biological substances; Z91.048 Other nonmedicinal substance allergy status; Z79.899 Other long term (current) drug therapy; Z68.41 Body mass index [BMI] 40.0-44.9, adult
CPT/HCPCS: 36415; 74177; 80053; 81001; 81025; 83605; 83690; 83735; 85025; 85610; 85730; 86140; 96361; 96374; 96375; 96376; 99284; A9270; J2270; J2405; J7120; Q9967